=== PATIENT | female | born 1980 | race Caucasian/White ===

== ENCOUNTER 2016-06-19 09:00 | Outpatient (RCR) | payer MEDICAID ==
[~2016-06-19 09:00] MED LIST: AMOX875T2 PO; BUSP15TA47 PO; DOXE50CA PO; EFFE75CA75 PO; LAMI200T3 PO; LATU20TA PO; LATU40TA PO; LITH1TAB PO; LITH600C PO; MICOCRE TOP; OMEP10CASR PO; PREM.6256 PO; PROP10TA56 PO; SERO50TA PO; SERT-141 PO; TRAZO50TA PO; VENL75CA PO; VENL75TA2 PO; ZOLO100T PO
== END 2016-06-20 | disposition home or self-care (01) ==
LOC: M OUTALCOH 09:00
PROVIDERS: ATTEND Psychiatry & Neurology Psychiatry
DX: F12.20 Cannabis dependence, uncomplicated (principal); F17.200 Nicotine dependence, unspecified, uncomplicated

== ENCOUNTER 2016-07-17 16:00 | Outpatient (RCR) | payer MEDICAID | END 2016-07-18 | LOC: M OUTALCOH 16:00 | PROVIDERS: ATTEND Psychiatry & Neurology Psychiatry | DX: F12.20 Cannabis dependence, uncomplicated (principal); F17.200 Nicotine dependence, unspecified, uncomplicated ==

== ENCOUNTER 2016-08-17 16:00 | Outpatient (RCR) | payer MEDICAID ==
[~2016-08-17 16:00] MED LIST changes: -SERT-141 PO; +SERT50TA PO
== END 2016-08-18 ==
LOC: M OUTALCOH 16:00
PROVIDERS: ATTEND Psychiatry & Neurology Psychiatry
DX: F12.20 Cannabis dependence, uncomplicated (principal); F17.200 Nicotine dependence, unspecified, uncomplicated

== ENCOUNTER 2016-08-30 11:00 | Outpatient (RCR) | payer MEDICAID ==
[2016-09-04] MEDS ORDERED: BENT20TA PO (20:05)
== END 2016-09-17 ==
LOC: M OUTALCOH 11:00
PROVIDERS: ATTEND Psychiatry & Neurology Psychiatry
DX: F12.20 Cannabis dependence, uncomplicated (principal); F17.200 Nicotine dependence, unspecified, uncomplicated

== ENCOUNTER 2016-09-04 17:45 | Emergency (ER) | payer MEDICAID, OTHER ==
[~2016-09-04] VITALS: Ht 157.5 cm; Wt 99.8 kg
[2016-09-04] MEDS ORDERED: ONDANSETRON 4MG/2ML VIAL (J2405) IV ONE (18:00)
[2016-09-04] MEDS ORDERED: KETOROLAC 30 MG/ML VIAL (J1885) IV ONE (18:00)
[2016-09-04 18:44] LABS: BASO % 0.4 % (0.0-1.0); EOS # 0.5 K/mm3 (0.0-0.50); EOS % 4.3 % (0.0-3.0); LARGE UNSTAINED CELL # 0.2 K/mm3 (0.0-0.4); LARGE UNSTAINED CELL % 1.6 % (0.0-4.0); LYMPH # 3.5 K/mm3 (1.5-4.5); LYMPH % 27.9 % (24.0-44.0); MEAN CORPUSCULAR HEMOGLOBIN 28.5 pg (27.0-33.0); MEAN CORPUSCULAR HGB CONC 33.2 g/dl (32.0-36.5); MEAN CORPUSCULAR VOLUME 85.9 fl (80.0-96.0); MONO # 0.5 K/mm3 (0.0-0.8); MONO % 3.9 % (0.0-5.0); NEUTROPHILS # 7.3 K/mm3 (1.8-7.7); NEUTROPHILS % 61.9 % (36.0-66.0); PLATELET COUNT, AUTOMATED 314 k/mm3 (150-450); RED CELL DISTRIBUTION WIDTH 12.9 % (11.5-14.5); WHITE BLOOD COUNT 11.8 K/mm3 (4.0-10.0)
[2016-09-04 19:03] LABS: ALBUMIN/GLOBULIN RATIO 1.18 (1.00-1.93); ALKALINE PHOSPHATASE 106 U/L (45-117); ALT/SGPT 47 U/L (12-78); ANION GAP 9 MEQ/L (8-16); AST/SGOT 19 U/L (15-37); BILIRUBIN,DIRECT < 0.1 MG/DL (0.0-0.2); BILIRUBIN,TOTAL 0.2 MG/DL (0.2-1.0); BLOOD UREA NITROGEN 9 MG/DL (7-18); CALCIUM LEVEL 8.3 MG/DL (8.5-10.1); CARBON DIOXIDE LEVEL 25 MEQ/L (21-32); CHLORIDE LEVEL 108 MEQ/L (98-107); CREATININE FOR GFR 0.82 MG/DL (0.55-1.02); GLOMERULAR FILTRATION RATE > 60.0 (>60); GLUCOSE, FASTING 107 MG/DL (70-105); POTASSIUM SERUM 3.7 MEQ/L (3.5-5.1); SODIUM LEVEL 142 MEQ/L (136-145); TOTAL PROTEIN 7.4 GM/DL (6.4-8.2)
[2016-09-04] MEDS ORDERED: BENT20TA PO (20:05)
[2016-09-04 20:10] VITALS: BP 114/62
== END 2016-09-04 20:12 | disposition home or self-care (01) ==
LOC: M ED 19:02
DX: R10.84 Generalized abdominal pain (principal); J45.909 Unspecified asthma, uncomplicated; K76.0 Fatty (change of) liver, not elsewhere classified; F31.9 Bipolar disorder, unspecified; F43.10 Post-traumatic stress disorder, unspecified; F41.9 Anxiety disorder, unspecified; G89.29 Other chronic pain; F17.210 Nicotine dependence, cigarettes, uncomplicated; Z98.890 Other specified postprocedural states; Z79.899 Other long term (current) drug therapy; Z88.8 Allergy status to other drugs, medicaments and biological substances; Z88.5 Allergy status to narcotic agent
CPT/HCPCS: 80048; 80076; 81001; 83690; 85025; 96374; 96375; 99282; J1885; J2405

== ENCOUNTER 2016-09-14 10:00 | Outpatient (RCR) | payer MEDICAID ==
[~2016-09-14 10:00] MED LIST changes: +BENT20TA PO
== END 2016-09-17 ==
LOC: M OUTALCOH 10:00
PROVIDERS: ATTEND Psychiatry & Neurology Psychiatry
DX: F12.20 Cannabis dependence, uncomplicated (principal); F17.200 Nicotine dependence, unspecified, uncomplicated

== ENCOUNTER → 2016-10-03 | Outpatient (CLI) | payer OTHER ==
[2016-10-03 11:17] LABS: BASO % 0.4 % (0.0-1.0); EOS # 0.4 K/mm3 (0.0-0.50); EOS % 4.5 % (0.0-3.0); LYMPH # 2.9 K/mm3 (1.5-4.5); LYMPH % 31.1 % (24.0-44.0); MEAN CORPUSCULAR HGB CONC 33.5 g/dl (32.0-36.5); MEAN CORPUSCULAR VOLUME 86.6 fl (80.0-96.0); MONO # 0.4 K/mm3 (0.0-0.8); MONO % 4.6 % (0.0-5.0); NEUTROPHILS # 5.2 K/mm3 (1.8-7.7); NEUTROPHILS % 57.8 % (36.0-66.0); RED CELL DISTRIBUTION WIDTH 12.9 % (11.5-14.5)
[2016-10-03 12:34] LABS: ALBUMIN 3.9 GM/DL (3.2-5.2); ALKALINE PHOSPHATASE 107 U/L (45-117); ALT/SGPT 48 U/L (12-78); ANION GAP 6 MEQ/L (8-16); AST/SGOT 21 U/L (15-37); BILIRUBIN,TOTAL 0.5 MG/DL (0.2-1.0); BLOOD UREA NITROGEN 11 MG/DL (7-18); CALCIUM LEVEL 8.6 MG/DL (8.5-10.1); CARBON DIOXIDE LEVEL 28 MEQ/L (21-32); CHLORIDE LEVEL 108 MEQ/L (98-107); CREATININE FOR GFR 0.91 MG/DL (0.55-1.02); GLOMERULAR FILTRATION RATE > 60.0 (>60); GLUCOSE, FASTING 124 MG/DL (70-105); POTASSIUM SERUM 4.1 MEQ/L (3.5-5.1); SODIUM LEVEL 142 MEQ/L (136-145); TOTAL PROTEIN 6.9 GM/DL (6.4-8.2)
[2016-10-03 12:38] LABS: LITHIUM LEVEL 0.48 MEQ/L (0.60-1.20)
== END ==
LOC: M LAB 10:40
PROVIDERS: ATTEND Physician Assistant
DX: F31.9 Bipolar disorder, unspecified (principal)

== ENCOUNTER → 2016-10-18 | Outpatient (RCR) | payer MEDICAID | LOC: M OUTALCOH 10-06 15:21 | PROVIDERS: ATTEND Psychiatry & Neurology Psychiatry | DX: F12.20 Cannabis dependence, uncomplicated (principal); F17.200 Nicotine dependence, unspecified, uncomplicated ==

== ENCOUNTER → 2017-03-13 | Outpatient (CLI) | payer OTHER ==
[~2017-03-13] MED LIST changes: +LAMI1TAB9 PO; -LAMI200T3 PO; -VENL75CA PO; +VENL75CA2 PO
[2017-03-13 15:18] LABS: ANION GAP 9 MEQ/L (8-16); BLOOD UREA NITROGEN 9 MG/DL (7-18); CALCIUM LEVEL 8.9 MG/DL (8.5-10.1); CARBON DIOXIDE LEVEL 25 MEQ/L (21-32); CHLORIDE LEVEL 108 MEQ/L (98-107); CREATININE FOR GFR 0.95 MG/DL (0.55-1.02); GLOMERULAR FILTRATION RATE > 60.0 (>60); GLUCOSE, FASTING 119 MG/DL (70-105); POTASSIUM SERUM 3.8 MEQ/L (3.5-5.1); SODIUM LEVEL 142 MEQ/L (136-145)
[2017-03-13 15:28] LABS: LITHIUM LEVEL 1.06 MEQ/L (0.60-1.20)
== END ==
LOC: M LAB 13:29
PROVIDERS: ATTEND Physician Assistant
DX: F31.9 Bipolar disorder, unspecified (principal)

== ENCOUNTER 2017-06-28 09:28 | Emergency (ER) | payer OTHER ==
[2017-06-28 13:08] LABS: CHLAMYDIA DNA AMPLIFICATION NEGATIVE (NEGATIVE); GC DNA AMPLIFICATION NEGATIVE (NEGATIVE)
== END 2017-06-28 12:17 | disposition home or self-care (01) ==
LOC: M ED 09:28
DX: A59.01 Trichomonal vulvovaginitis (principal); F43.10 Post-traumatic stress disorder, unspecified; F31.9 Bipolar disorder, unspecified; F17.210 Nicotine dependence, cigarettes, uncomplicated; Z79.899 Other long term (current) drug therapy; Z88.5 Allergy status to narcotic agent; Z88.8 Allergy status to other drugs, medicaments and biological substances; Z98.890 Other specified postprocedural states
CPT/HCPCS: 87210

== ENCOUNTER 2017-08-02 12:10 | Emergency (ER) | payer OTHER ==
[2017-08-02 14:48] LABS: CONTROL LINE UCG INT CTR LINE PRESENT; URINE PREG TEST NEGATIVE (NEGATIVE)
[2017-08-02 14:53] LABS: BASO # 0.1 10^3/uL (0.0-0.2); BASO % 0.5 % (0.0-1.0); EOS # 0.4 10^3/uL (0.0-0.50); EOS % 2.9 % (0.0-3.0); HEMATOCRIT 41.3 % (36.0-47.0); HEMOGLOBIN 13.6 g/dl (12.0-16.0); IMMATURE GRANULOCYTE % 0.4 % (0-3.0); LYMPH # 3.7 10^3/uL (1.5-4.5); LYMPH % 26.6 % (24.0-44.0); MEAN CORPUSCULAR HEMOGLOBIN 29.5 pg (27.0-33.0); MEAN CORPUSCULAR HGB CONC 32.9 g/dl (32.0-36.5); MEAN CORPUSCULAR VOLUME 89.6 fl (80.0-96.0); MONO # 0.6 10^3/uL (0.0-0.8); MONO % 4.6 % (0.0-5.0); PLATELET COUNT, AUTOMATED 281 10^3/uL (150-450); RED BLOOD COUNT 4.61 10^6/uL (4.00-5.40); RED CELL DISTRIBUTION WIDTH 13.6 % (11.5-14.5); WHITE BLOOD COUNT 13.9 10^3/uL (4.0-10.0)
[2017-08-02 14:54] LABS: KETONE, URINE AUTO RFX NEGATIVE (NEGATIVE); LEUKOCYTE ESTERASE UR AUTO RFX NEGATIVE (NEGATIVE); NITRITE, URINE AUTO RFX NEGATIVE (NEGATIVE); RBC, URINE AUTO RFX 0 /HPF (0-3); SPECIFIC GRAVITY UR AUTO RFX 1.006 (1.002-1.035); SQUAM EPITHELIAL CELL UR AURFX 3 /HPF (0-6); WBC, URINE AUTO RFX 0 /HPF (0-3)
[2017-08-02 15:26] LABS: ANION GAP 8 MEQ/L (8-16); BLOOD UREA NITROGEN 16 MG/DL (7-18); C REACTIVE PROTEIN QUANTITATIV 0.82 MG/DL (0.00-0.30); CALCIUM LEVEL 9.3 MG/DL (8.5-10.1); CARBON DIOXIDE LEVEL 23 MEQ/L (21-32); CHLORIDE LEVEL 110 MEQ/L (98-107); CREATININE FOR GFR 0.83 MG/DL (0.55-1.30); GLOMERULAR FILTRATION RATE > 60.0 (>60); GLUCOSE, FASTING 106 MG/DL (70-100); POTASSIUM SERUM 4.2 MEQ/L (3.5-5.1); SODIUM LEVEL 141 MEQ/L (136-145)
[2017-08-02 15:32] LABS: LITHIUM LEVEL 0.92 MEQ/L (0.60-1.20)
[2017-08-02] MEDS: diphenhydrAMINE INJ 50MG/ML VIAL (J1200) IV (15:36)
[2017-08-02] MEDS: METOCLOPRAMIDE INJ 10MG/2ML VIAL (J2765) IV (15:36)
[2017-08-02] MEDS: KETOROLAC 30 MG/ML VIAL (J1885) IV (15:36)
[2017-08-02 16:13] LABS: ERYTHROCYTE SEDIMENTATION RATE 9 mm/hr (0-20)
== END 2017-08-02 16:43 | disposition home or self-care (01) ==
LOC: M ED 12:10
DX: R51 Headache (principal); R11.0 Nausea; H53.9 Unspecified visual disturbance; K59.00 Constipation, unspecified; F31.9 Bipolar disorder, unspecified; F43.10 Post-traumatic stress disorder, unspecified; F17.200 Nicotine dependence, unspecified, uncomplicated; Z88.6 Allergy status to analgesic agent; Z88.5 Allergy status to narcotic agent; Z79.899 Other long term (current) drug therapy
CPT/HCPCS: J1200

== ENCOUNTER → 2017-08-17 | Outpatient (REF) | payer OTHER ==
[2017-08-17 20:37] LABS: CHLAMYDIA DNA AMPLIFICATION NEGATIVE (NEGATIVE); GC DNA AMPLIFICATION NEGATIVE (NEGATIVE)
== END ==
LOC: M SFHCPLAZ 16:54
DX: N76.0 Acute vaginitis (principal)

== ENCOUNTER 2018-03-05 20:10 | Emergency (ER) | payer OTHER ==
[2018-03-05] MEDS: ACETAMINOPHEN 325 MG TAB PO (21:26)
[2018-03-05] MEDS: LIDOCAINE VISCOUS 2% SOLN 15ML UDC MT (21:26)
[2018-03-05] MEDS: CLINDAMYCIN 150 MG CAP PO (21:26)
== END 2018-03-05 21:40 | disposition home or self-care (01) ==
LOC: M ED 20:10
DX: K04.7 Periapical abscess without sinus (principal); J45.909 Unspecified asthma, uncomplicated; N80.9 Endometriosis, unspecified; F43.10 Post-traumatic stress disorder, unspecified; F31.9 Bipolar disorder, unspecified; F41.9 Anxiety disorder, unspecified; F17.200 Nicotine dependence, unspecified, uncomplicated; Z88.6 Allergy status to analgesic agent; Z88.5 Allergy status to narcotic agent
CPT/HCPCS: 99282

== ENCOUNTER → 2018-03-19 | Outpatient (CLI) | payer OTHER | LOC: M RAD 10:36 | DX: N64.4 Mastodynia (principal); K12.0 Recurrent oral aphthae | CPT/HCPCS: 77066 ==

== ENCOUNTER → 2018-03-19 | Outpatient (CLI) | payer OTHER ==
[2018-03-19 11:16] LABS: BASO # 0.1 10^3/uL (0.0-0.2); BASO % 0.5 % (0.0-1.0); EOS # 0.2 10^3/uL (0.0-0.50); EOS % 2.6 % (0.0-3.0); HEMATOCRIT 43.2 % (36.0-47.0); HEMOGLOBIN 14.3 g/dl (12.0-15.5); IMMATURE GRANULOCYTE % 0.2 % (0-3.0); LYMPH # 3.9 10^3/uL (1.5-4.5); LYMPH % 42.7 % (24.0-44.0); MEAN CORPUSCULAR HEMOGLOBIN 28.5 pg (27.0-33.0); MEAN CORPUSCULAR HGB CONC 33.1 g/dl (32.0-36.5); MEAN CORPUSCULAR VOLUME 86.2 fl (80.0-96.0); MONO # 0.6 10^3/uL (0.0-0.8); MONO % 6.4 % (0.0-5.0); NEUTROPHILS # 4.4 10^3/uL (1.8-7.7); NEUTROPHILS % 47.6 % (36.0-66.0); PLATELET COUNT, AUTOMATED 281 10^3/uL (150-450); RED BLOOD COUNT 5.01 10^6/uL (4.00-5.40); RED CELL DISTRIBUTION WIDTH 12.7 % (11.5-14.5); WHITE BLOOD COUNT 9.2 10^3/uL (4.0-10.0)
[2018-03-19 12:43] LABS: FERRITIN 27 NG/ML (8-252); IRON (FE) 83 UG/DL (50-170); PERCENT SATURATION 24.4 % (13.2-45.0); TOTAL IRON BINDING CAPACITY 340 UG/DL (250-450)
[2018-03-20 08:07] LABS: TRANSFERRIN 266 mg/dL (200-370)
[2018-03-20 11:21] LABS: HIV 1&2 SCREEN CENTAUR NEGATIVE (NEGATIVE)
== END ==
LOC: M LAB 10:41
DX: K12.0 Recurrent oral aphthae (principal)
CPT/HCPCS: 82728

== ENCOUNTER 2018-05-18 22:50 | Emergency (ER) | payer OTHER ==
[~2018-05-18] VITALS: Ht 157.5 cm; Wt 100.0 kg
[2018-05-18 22:50] VITALS: BP 148/73
[~2018-05-18 22:50] MED LIST changes: +ALEV220C2 PO; +AMOX875T PO; +CLEO300C2 PO; +EFFE75CA2 PO; -EFFE75CA75 PO; +FLAG500T PO; +KETO10TAB PO; +REGL10TA6 PO
[2018-05-18] MEDS ORDERED: NEUR100C PO ×2 (23:15→23:37)
[2018-05-18] MEDS ORDERED: GABAPENTIN 100 MG CAP PO ONE (23:15)
[2018-05-18] MEDS ORDERED: PRED20TA PO ×2 (23:15→23:37)
[2018-05-18] MEDS ORDERED: predniSONE 20 MG TAB PO ONE (23:15)
== END 2018-05-18 23:44 | disposition home or self-care (01) ==
LOC: M ED 22:50
DX: M54.12 Radiculopathy, cervical region (principal); N80.9 Endometriosis, unspecified; F43.10 Post-traumatic stress disorder, unspecified; Z72.0 Tobacco use; Z88.6 Allergy status to analgesic agent; Z88.5 Allergy status to narcotic agent

== ENCOUNTER → 2018-10-18 | Outpatient (REF) | payer OTHER ==
[~2018-10-18] MED LIST changes: +NEUR100C PO; +PRED20TA PO; +SERT-141 PO; -SERT50TA PO; +TRAZ1TAB10 PO; -TRAZO50TA PO
[2018-10-18 17:30] LABS: FREE T4 0.91 NG/DL (0.76-1.46); THYROID STIMULATING HORMONE 0.962 uIU/ML (0.358-3.740)
== END ==
LOC: M SFHCPLAZ 14:20
DX: R63.5 Abnormal weight gain (principal); K12.0 Recurrent oral aphthae

== ENCOUNTER → 2018-12-02 | Outpatient (REF) | payer OTHER ==
[~2018-12-02] MED LIST changes: +DULO1CAP6; +MECL-86 PO
== END ==
LOC: M SFHCPLAZ 18:39
PROVIDERS: ATTEND Obstetrics & Gynecology
DX: R10.9 Unspecified abdominal pain (principal)

== ENCOUNTER → 2019-01-31 | Outpatient (REF) | payer OTHER ==
[2019-01-31 18:04] LABS: HEMOGLOBIN 13.8 g/dl (12.0-15.5); MEAN CORPUSCULAR HEMOGLOBIN 28.2 pg (27.0-33.0); MEAN CORPUSCULAR HGB CONC 32.9 g/dl (32.0-36.5); MEAN CORPUSCULAR VOLUME 85.9 fl (80.0-96.0); PLATELET COUNT, AUTOMATED 296 10^3/uL (150-450); RED BLOOD COUNT 4.89 10^6/uL (4.00-5.40); WHITE BLOOD COUNT 11.4 10^3/uL (4.0-10.0)
[2019-01-31 18:17] LABS: CHOLESTEROL LEVEL 189 MG/DL (<200); CHOLESTEROL RISK RATIO 4.725 (<5); HDL CHOLESTEROL 40 MG/DL (>40); LDL CHOLESTEROL 78 MG/DL (<100); NON-HDL-C 149 MG/DL; TRIGLYCERIDES LEVEL 354 MG/DL (<150)
[2019-01-31 18:50] LABS: HIV 1&2 SCREEN CENTAUR NEGATIVE (NEGATIVE)
[2019-01-31 19:22] LABS: HEMOGLOBIN A1c 5.3 %
[2019-01-31 21:20] LABS: CHLAMYDIA DNA AMPLIFICATION NEGATIVE (NEGATIVE); GC DNA AMPLIFICATION NEGATIVE (NEGATIVE)
== END ==
LOC: M SFHCPLAZ 15:17
DX: R10.31 Right lower quadrant pain (principal); Z68.41 Body mass index [BMI] 40.0-44.9, adult

== ENCOUNTER 2019-02-05 18:25 | Emergency (ER) | payer OTHER ==
[~2019-02-05] VITALS: Ht 157.5 cm; Wt 93.2 kg
[~2019-02-05 18:25] MED LIST changes: -DULO1CAP6; -MECL-86 PO
[2019-02-05] MEDS ORDERED: DULO1CAP6 (18:31)
[2019-02-05] MEDS ORDERED: PROMETHAZINE INJ 25 MG/ML VIAL (J2550) IV ONE (19:00)
[2019-02-05] MEDS ORDERED: NS 1,000 ML IV ONE (19:00)
[2019-02-05 19:07] LABS: BASO % 0.3 % (0.0-1.0); EOS # 0.4 10^3/uL (0.0-0.5); EOS % 3.1 % (0.0-3.0); HEMATOCRIT 42.5 % (36.0-47.0); HEMOGLOBIN 14.6 g/dl (12.0-15.5); LYMPH # 4.3 10^3/uL (1.5-5.0); LYMPH % 37.4 % (24.0-44.0); MEAN CORPUSCULAR HEMOGLOBIN 28.8 pg (27.0-33.0); MEAN CORPUSCULAR HGB CONC 34.4 g/dl (32.0-36.5); MEAN CORPUSCULAR VOLUME 83.8 fl (80.0-96.0); MONO # 0.6 10^3/uL (0.0-0.8); MONO % 5.2 % (0.0-5.0); NEUTROPHILS # 6.1 10^3/uL (1.5-8.5); NEUTROPHILS % 53.7 % (36.0-66.0); PLATELET COUNT, AUTOMATED 300 10^3/uL (150-450); RED BLOOD COUNT 5.07 10^6/uL (4.00-5.40); WHITE BLOOD COUNT 11.4 10^3/uL (4.0-10.0)
[2019-02-05 19:18] LABS: INR 0.98; PROTHROMBIN TIME 12.7 SECONDS (11.8-14.0)
[2019-02-05 19:25] LABS: ALBUMIN 3.7 GM/DL (3.2-5.2); ALT/SGPT 35 U/L (12-78); AMYLASE 37 U/L (25-115); BILIRUBIN,DIRECT < 0.1 MG/DL (0.0-0.2); BILIRUBIN,TOTAL 0.2 MG/DL (0.2-1.0); BLOOD UREA NITROGEN 8 MG/DL (7-18); CALCIUM LEVEL 9.2 MG/DL (8.5-10.1); CARBON DIOXIDE LEVEL 23 MEQ/L (21-32); CHLORIDE LEVEL 110 MEQ/L (98-107); CK-MB VALUE MASS < 1.0 NG/ML (<3.6); CPK CREATINE PHOSPHOKINASE 157 U/L (26-192); CREATININE FOR GFR 0.91 MG/DL (0.55-1.30); GLOMERULAR FILTRATION RATE > 60.0 (>60); GLUCOSE, FASTING 139 MG/DL (70-100); LIPASE 145 U/L (73-393); MB/CK RELATIVE INDEX 0.64 (< OR =4); POTASSIUM SERUM 3.8 MEQ/L (3.5-5.1); SODIUM LEVEL 142 MEQ/L (136-145); TOTAL PROTEIN 6.7 GM/DL (6.4-8.2); TROPONIN I < 0.02 NG/ML (< 0.10)
[2019-02-05] MEDS ORDERED: ISOVUE-370 76% 100ML VIAL (Q9967) As Ordered ONE (19:34)
--- NOTE | 2019-02-05 19:56 | REP ---
REASON: Chest pain. COMPARISON: 11/23/2009. There is mild cardiomegaly accentuated by technique. The lung stringer are clear. The pleural angles are sharp. The osseous structures are unchanged. There is a round metallic radiodensity in the left lower lung field unchanged from the prior exam consistent with a foreign body. IMPRESSION:Mild cardiomegaly. No acute cardiopulmonary disease. Electronically Signed by Moises Li DO 02/06/2019 11:05 A
--- NOTE | 2019-02-05 20:36 | REPVR ---
PROCEDURE INFORMATION: Exam: CT Abdomen and Pelvis With Contrast Exam date and time: 02/05/2019 7:41 PM Clinical history: 38 years old, female; Abdominal pain; Localized; Left upper quadrant (luq); Additional info: Pain- luq TECHNIQUE: Imaging protocol: Computed tomography of the abdomen and pelvis with intravenous contrast. Radiation optimization: All CT scans at this facility use at least one of these dose optimization techniques: automated exposure control; mA and/or kV adjustment per patient size (includes targeted exams where dose is matched to clinical indication); or iterative reconstruction. Contrast material: ISOVUE 370; Contrast volume: 100 ml; Contrast route: IV; COMPARISON: CT ABD PELVIS WITH CONTRAST 08/20/2013 6:53 PM FINDINGS: Liver: There is a diffuse decrease in hepatic parenchymal density, consistent with fatty infiltration. Gallbladder and bile ducts: The gallbladder is incompletely distended. This is most likely related to incomplete fasting. Clinical correlation to exclude gallbladder pathology suggested. Pancreas: Normal. No ductal dilation. Spleen: Normal. No splenomegaly. Adrenals: Normal. No mass. Kidneys and ureters: Normal. No hydronephrosis. Stomach and bowel: There is modest increased feces throughout the colon consistent with constipation. Appendix: No evidence of appendicitis. Intraperitoneal space: Unremarkable. No free air. No significant fluid collection. Vasculature: Unremarkable. No abdominal aortic aneurysm. Lymph nodes: Unremarkable. No enlarged lymph nodes. Bladder: Unremarkable as visualized. Reproductive: There has been a hysterectomy. Bones/joints: Unremarkable. No acute fracture. Soft tissues: Small right inguinal hernia. IMPRESSION: 1. There is a diffuse decrease in hepatic parenchymal density, consistent with fatty infiltration. 2. The gallbladder is incompletely distended. This is most likely related to incomplete fasting. Clinical correlation to exclude gallbladder pathology suggested. 3. There has been a hysterectomy. 4. There is modest increased feces throughout the colon consistent with constipation. Electronically signed by: Adrian Ignacio On 02/05/2019 20:36:27 PM
[2019-02-05 21:31] VITALS: BP 142/82
[2019-02-05] MEDS ORDERED: MECL-86 PO (21:42)
--- NOTE | 2019-02-06 21:32 | ECGEPIP ---
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
== END 2019-02-05 21:58 | disposition home or self-care (01) ==
LOC: M ED 18:25
DX: R42 Dizziness and giddiness (principal); K59.00 Constipation, unspecified; F31.9 Bipolar disorder, unspecified; K58.1 Irritable bowel syndrome with constipation; Z88.5 Allergy status to narcotic agent; Z88.6 Allergy status to analgesic agent; F17.200 Nicotine dependence, unspecified, uncomplicated
CPT/HCPCS: 36415; 71045; 74177; 80048; 80076; 82150; 82550; 82553; 83605; 83690; 85025; 85610; 85730; 93005; 93041; 96361; 96374; 99285; Q9967

== ENCOUNTER → 2019-02-19 | Outpatient (CLI) | payer OTHER ==
[~2019-02-19] MED LIST changes: +DULO1CAP6; +MECL-86 PO
--- NOTE | 2019-02-19 18:01 | REP ---
Pelvic ultrasound: The patient complains of right lower quadrant pain. The patient has a complete hysterectomy with years surgical removal, 2010, ovary surgically removed and 2011. Additionally, the patient had an endometrioma removed and 2013. Transabdominal imaging is performed. The bladder is adequately distended. There is no identifiable uterus. There are no identifiable right or left ovaries. There are no dominant masses or cysts. There is no free fluid. When imaging over the right lower quadrant the appendix cannot be identified. There is no focal fluid collection. Impression: Essentially negative pelvic ultrasound in patient with a hysterectomy. No new dominant masses or cysts are identified. There is no free fluid. The appendix could not be identified. Electronically Signed by Jadiel Mack MD 02/19/2019 05:53 P
== END ==
LOC: M RAD 16:55
PROVIDERS: ATTEND Internal Medicine
DX: R10.31 Right lower quadrant pain (principal)

== ENCOUNTER → 2019-05-08 | Outpatient (CLI) | payer OTHER ==
--- NOTE | 2019-05-08 19:09 | REPPI ---
Two-view abdomen: 05/08/2019. Indication: Abdominal pain. Inguinal hernia. Comparison: 02/05/2019. Findings: Moderate fecal material is noted within the colon particularly within the hepatic flexure. There is no evidence of bowel obstruction. No acute osseous injuries are detected. There is no organomegaly. No free intraperitoneal air is detected. Impression: Constipation? No evidence of bowel obstruction. Electronically Signed by Rene Barrera DO 05/08/2019 05:04 P
== END ==
LOC: M PLAIMG 15:31
PROVIDERS: ATTEND Internal Medicine
DX: K59.00 Constipation, unspecified (principal); R10.31 Right lower quadrant pain

== ENCOUNTER → 2019-05-08 | Outpatient (REF) | payer OTHER ==
[2019-05-08 18:35] LABS: CHLAMYDIA DNA AMPLIFICATION NEGATIVE (NEGATIVE); GC DNA AMPLIFICATION NEGATIVE (NEGATIVE)
[2019-05-09 12:18] LABS: HEPATITIS B SURFACE ANTIBODY NEGATIVE (POSITIVE); HEPATITIS B SURFACE ANTIGEN NEGATIVE (NEGATIVE); HIV 1&2 SCREEN CENTAUR NEGATIVE (NEGATIVE)
== END ==
LOC: M SFHCPLAZ 15:09
DX: Z11.3 Encounter for screening for infections with a predominantly sexual mode of transmission (principal)

== ENCOUNTER → 2020-03-05 | Outpatient (REF) | payer OTHER ==
[2020-03-05 17:47] LABS: HEMOGLOBIN A1c 5.2 %
[2020-03-05 17:53] LABS: ALBUMIN 4.1 GM/DL (3.2-5.2); ALT/SGPT 50 U/L (12-78); BILIRUBIN,TOTAL 0.4 MG/DL (0.2-1.0); BLOOD UREA NITROGEN 13 MG/DL (7-18); CALCIUM LEVEL 9.1 MG/DL (8.5-10.1); CARBON DIOXIDE LEVEL 32 MEQ/L (21-32); CHLORIDE LEVEL 107 MEQ/L (98-107); CHOLESTEROL LEVEL 210 MG/DL (<200); CREATININE FOR GFR 0.92 MG/DL (0.55-1.30); GLOMERULAR FILTRATION RATE > 60.0 (>60); GLUCOSE, FASTING 107 MG/DL (70-100); HDL CHOLESTEROL 42 MG/DL (>40); LDL CHOLESTEROL 105 MG/DL (<100); NON-HDL-C 168 MG/DL; POTASSIUM SERUM 4.2 MEQ/L (3.5-5.1); SODIUM LEVEL 144 MEQ/L (136-145); TOTAL PROTEIN 7.5 GM/DL (6.4-8.2); TRIGLYCERIDES LEVEL 313 MG/DL (<150)
== END ==
LOC: M SFHCPLAZ 14:11
DX: E66.9 Obesity, unspecified (principal); F17.200 Nicotine dependence, unspecified, uncomplicated; Z00.00 Encounter for general adult medical examination without abnormal findings

== ENCOUNTER → 2020-06-06 | Outpatient (CLI) | payer OTHER ==
[~2020-06-06] MED LIST changes: +PHEN37.52; +VITMTA PO
== END ==
LOC: M LABSMTC 09:56
PROVIDERS: ATTEND Anesthesiology
DX: Z01.812 Encounter for preprocedural laboratory examination (principal); Z20.822 Contact with and (suspected) exposure to COVID-19

== ENCOUNTER 2020-06-11 06:17 | Day surgery (SDC) | payer OTHER ==
[~2020-06-11] VITALS: Ht 157.5 cm; Wt 93.4 kg
[~2020-06-11 06:17] MED LIST changes: +CelecoXIB (CeleBREX) 100 MG CAP PO ONE; +LR 1,000 ML IV ONE
--- OUTSIDE RECORDS SUMMARY | 2020-06-11 06:23 | CCD ---
Author Author [facility] Organization [facility] Address Unknown Phone Unavailable Care Team Providers Care Telesales Manager Name Role Phone Lakeshia Kemp Unavailable PROBLEMS Type Condition ICD9-CM Code RNV66-WS Code Onset Dates Condition S tatus SNOMED Code Notes Problem Smoking F17.200 Active 733221815 Problem Obesity, unspecified E66.9 Active 931712738 Problem Carpal tunnel syndrome on left G56.02 Active 2 61446265514975 Problem Borderline personality disorder F60.3 Active 55776370 Problem Bipolar affective disorder, remission status unspecified F31.9 Active 61433796 Problem BMI 37.0-37.9, adult Z68.37 Active 408659522 ALLERGIES Allergen (clinical drug ingredient) Drug/Non Drug Allergy do cumented on EMR Reaction Allergy Type Onset Date Status codeine Codeine Sulfate(NDC Code:[address]-33) itchy, h ot upset,dizzy Drug Allergy Active Codeine Phosphate(NDC Code:[address]-08) Nausea/Vomiting Drug Allergy Active aspirin Aspirin(NDC Code:[address]-77) headache Drug Allergy Active ENCOUNTERS from 1982 to 2020-05-11 Encounter Location Date Provider Diagnosis [facility] Resident [address] [place] [address] Apr, Lakeshia Kemp IMMUNIZATIONS Vaccine Route Administration Date Status Meningococcal 0.5mL (Menveo Groups A,C,Y & W-135) IM Intramuscul ar Jun 13, 2019 Administered Pneumococcal Adult 0.5mL (Pneumovax 23) IM Intramuscular Jan Administered Influenza (6mo & up) Fluzone IM Intramuscular Mar 14, 2018 Ad ministered SOCIAL HISTORY Tobacco Use: Social History Observation Description Date Details (start date - stop date) Current Smoker Sex Assigned At : Social History Observation Description Sex Assigned At Unknown Education: Question Answer Notes Level of Education: Finished High School Audit Question Answer Notes Total Score: 0 Interpretation: Alcohol Education Language: Question Answer Notes Languages spoken: Bermudian Yazidi: Question Answer Notes Yazidi 08 Rastafarian Sexual Hx: Question Answer Notes Had sex in the last 12 months (vaginal, oral, or anal)? Yes Have you ever had an STD? Yes with Men only Use protection? No Other? Yes Drug and Alcohol Question Answer Notes Total Score: 0 Interpretation: No problems reported Alcohol Screening: Question Answer Notes Did you have a drink containing alcohol in the past year? No Points 0 Interpretation Negative Tobacco Use: Question Answer Notes Are you a: current smoker Smoking Cessation Information Given 05/08/2019 Patient counseled on the dangers of tobacco use and urged to quit: 05/08/2019 How many cigarettes a day do you smoke? 5 or less smokes cigars Are you interested in quitting? Ready to quit Counseled the patient on tobacco use, cessation provided REASON FOR REFERRAL No Information VITAL SIGNS No information MEDICATIONS Medication SIG (Take, Route, Frequency, Duration) Notes Start Da te End Date Status Meloxicam 15 MG 1 tablet Orally Once a day for 7 day(s) Feb, Active Phentermine HCl 15 MG 1 capsule Orally Once a day for 30 days Feb, Active Qsymia 3.75-23 MG 1 capsule daily for 2 weeks then two capsules daily Orally Once a day for 30 days Feb, Active Phentermine HCl 37.5 MG 1 tablet Orally Once a day for 30 days Feb, Active PROCEDURES No Information RESULTS No Results REASON FOR VISIT URGENT Medication Refill Request MEDICAL (GENERAL) HISTORY Type Description Date Medical History Bipolar Disorder with Depression/Anxiety /Borderline/PTSD Medical History Anemia and Endometriosis (s/p EUSEBIA with B LO 2011) Medical History Obesity Medical History Fibrocystic Dreast Disease BL Medical History Carpal Tunnel (left) Surgical History hysterectomy Surgical History laparoscopy-2000/2005/2006 Surgical History c section-2001 Surgical History laparoscopy Surgical History C section Surgical History hysterectomy 2010 Surgical History oophorectomy-2011 Surgical History oophrectomy 2012 Hospitalization History hysterectomy 2011 Goals Section No Information Health Concerns No Information MEDICAL EQUIPMENT No Information MENTAL STATUS No Information FUNCTIONAL STATUS No Information ASSESSMENTS No Information PLAN OF TREATMENT Medication Medication Name Sig Start Date Stop Date Meloxicam 15 MG 1 tablet Orally Once a day for 7 day(s) Feb, Qsymia 3.75-23 MG 1 capsule daily for 2 weeks then two capsules daily Orally Once a day for 30 days Feb, Phentermine HCl 37.5 MG 1 tablet Orally Once a day for 30 days 2 1 Feb, 2020 Phentermine HCl 15 MG 1 capsule Orally Once a day for 30 days Feb, Next Appt Details Provider Name:Faheem Koenig, 2 021-01-07 03:30:00 PM, [address] [facility], [place], [address], Insurance Providers Payer Name Payer Address Payer Phone Insured Name Patient Relati onship to Insured Coverage Start Date Coverage End Date [facility] [employer] [address] [facility] [id number] DAI MCKEON self
--- OUTSIDE RECORDS SUMMARY | 2020-06-11 06:24 | CCD | Continuity of Care Document ---
Author Author YAMILEX ADKINS, Jordyn Ramos Organization Unknown Address [address] [place] [id number] Phone [phone] Care Team Providers Care Cardiopulmonary Technologist Chief Name Role Phone Lakeshia KempM [phone] Problems Active Problems Provider Date Bilateral chronic serous otitis Patrick Deleon M.D. Onset: 08/15/2017 Social History Type Date Description Comments Sex Unknown ETOH Use Denies alcohol use Tobacco Use Start: 05/21/10 1/2 PPD Recreational Drug Use Denies Drug Use Allergies, Adverse Reactions, Alerts Active Allergies Reaction Severity Comments Date Aspirin 06/09/2016 Codeine 06/09/2016 Medications Active Medications SIG Qnty Indications Ordering Provide r Date Phentermine HCL 37.5mg Tablets Take One Tablet By Mouth Every Day Maximum Daily Dose 1 Capsule Unknown Immunizations Description No Information Available Vital Signs Date Vital Result Comment 04/06/2020 9:54am BP Systolic 133 mmHg BP Diastolic 81 mmHg Heart Rate 85 /min Height 62 inches 5'2" Weight 212.12 lb BMI (Body Mass Index) 38.8 kg/m2 [place] Body Weight 110 lb Weight 96.220 kg 08/15/2017 10:22am Height 62 inches 5'2" Weight 210.00 lb BMI (Body Mass Index) 38.4 kg/m2 [place] Body Weight 110 lb Weight 95.256 kg Results Description No Information Available Procedures Description No Information Available Medical Devices Description No Information Available Encounters Description No Information Available Assessments Description No Information Available Plan of Treatment 08/15/2017 - Slade Piña MD* J34.2 Deviated nasal septum* New Xrays:* CT Maxillofacial W/O Contrast 36201, Scheduled: 08/21/17 * H92.01 Otalgia, right ear * H69.93 Unspecified Eustachian tube disorder, bilateral* Recommendations:* audiolgoy ordered * HOLD Mmri Hold Billing Functional Status Description No Information Available Mental Status Description No Information Available Referrals Refer to Reason for Referral Status Appt Date Shane Tapia MD PAINFUL LIPOMA, LFT ARM Scheduled 1 06/06/[address] [place], [place] [id number] [phone]
--- OUTSIDE RECORDS SUMMARY | 2020-06-11 06:24 | CCD ---
Author Author [facility] Organization [facility] Address Unknown Phone Unavailable Care Team Providers Care Drill Operator Pneumatic Name Role Phone Haley Giraldo MHC Unavailable Unavailable Haley Giraldo MHC Unavailable Unavailable CHO, J SALLY PA Unavailable Unavailable CHO, J SALLY PA Unavailable Unavailable CHO, J SALLY PA Unavailable Unavailable CHO, J SALLY PA Unavailable Unavailable CHO, J SALLY PA Unavailable Unavailable CHO, J SALLY PA Unavailable Unavailable CHO, J SALLY PA Unavailable Unavailable CHO, J SALLY PA Unavailable Unavailable CHO, J SALLY PA Unavailable Unavailable CHO, J SALLY PA Unavailable Unavailable CHO, J SALLY PA Unavailable Unavailable CHO, J SALLY PA Unavailable Unavailable CHO, J SALLY PA Unavailable Unavailable CHO, J SALLY PA Unavailable Unavailable CHO, J SALLY PA Unavailable Unavailable CHO, J SALLY PA Unavailable Unavailable CHO, J SALLY PA Unavailable Unavailable CHO, J SALLY PA Unavailable Unavailable CHO, J SALLY PA Unavailable Unavailable CHO, J SALLY PA Unavailable Unavailable CHO, J SALLY PA Unavailable Unavailable CHO, J SALLY PA Unavailable Unavailable CHO, J SALLY PA Unavailable Unavailable CHO, J SALLY PA Unavailable Unavailable CHO, J SALLY PA Unavailable Unavailable CHO, J SALLY PA Unavailable Unavailable CHO, J SALLY PA Unavailable Unavailable SONALI, KMIMIE PA Unavailable Unavailable SONALI, KIMMIE PA Unavailable Unavailable SONALI, KIMMIE PA Unavailable Unavailable SONALI, KIMMIE PA Unavailable Unavailable SONALI, KIMMIE PA Unavailable Unavailable SONALI, KIMMIE PA Unavailable Unavailable SONALI, KIMMIE PA Unavailable Unavailable SONALI, KIMMIE PA Unavailable Unavailable SONALI, KIMMIE PA Unavailable Unavailable SONALI, KIMMIE PA Unavailable Unavailable SONALI, KIMMIE PA Unavailable Unavailable SONALI, KIMMIE PA Unavailable Unavailable SONALI, KIMMIE PA Unavailable Unavailable SONALI, KIMMIE PA Unavailable Unavailable SONALI, KIMMIE PA Unavailable Unavailable SONALI, KIMMIE PA Unavailable Unavailable SONALI, IKMMIE PA Unavailable Unavailable SONALI, KIMMIE PA Unavailable Unavailable SONALI, KIMMIE PA Unavailable Unavailable SONALI, KIMMIE PA Unavailable Unavailable SONALI, KIMMIE PA Unavailable Unavailable SONALI, KIMMIE PA Unavailable Unavailable SONALI, KIMMIE PA Unavailable Unavailable SONALI, KIMMIE PA Unavailable Unavailable SONALI, KIMMIE PA Unavailable Unavailable SONALI, KIMMIE PA Unavailable Unavailable SONALI, KIMMIE PA Unavailable Unavailable SONALI, KIMMIE PA Unavailable Unavailable SONALI, KIMMIE PA Unavailable Unavailable SONALI, KIMMIE PA Unavailable Unavailable SONALI, KIMMIE PA Unavailable Unavailable SONALI, KIMMIE PA Unavailable Unavailable SONALI, KIMMIE PA Unavailable Unavailable SONALI, KIMMIE PA Unavailable Unavailable SONALI, KIMMIE PA Unavailable Unavailable SONALI, KIMMIE PA Unavailable Unavailable SONALI, KIMMIE PA Unavailable Unavailable SONALI, KIMMIE PA Unavailable Unavailable Dille, E Felicia DDS Unavailable Unavailable Dille, E Felicia DDS Unavailable Unavailable Dille, E Felicia DDS Unavailable Unavailable Dilbradley, E Felicia DDS Unavailable Unavailable Desmond Zafar MD Unavailable Unavailable Desmond Zafar MD Unavailable Unavailable Desmond Zafar MD Unavailable Unavailable Desmond Zafar MD Unavailable Unavailable Desmond Zafar MD Unavailable Unavailable Desmond Zafar MD Unavailable Unavailable Desmond Zafar MD Unavailable Unavailable Desmond Zafar MD Unavailable Unavailable Desmond Zafar MD Unavailable Unavailable Desmond Zafar MD Unavailable Unavailable Desmond Zafar MD Unavailable Unavailable Desmond Zafar MD Unavailable Unavailable Desmond Zafar MD Unavailable Unavailable Desmond Zafar MD Unavailable Unavailable Desmond Zafar MD Unavailable Unavailable Desmond Zafar MD Unavailable Unavailable Desmond Zafar MD Unavailable Unavailable Desmond Zafar MD Unavailable Unavailable Desmond Zafar MD Unavailable Unavailable Desmond Zafar MD Unavailable Unavailable Desmond Zafar MD Unavailable Unavailable Desmond Zafar MD Unavailable Unavailable Desmond Zafar MD Unavailable Unavailable Desmond Zafar MD Unavailable Unavailable Desmond Zafar MD Unavailable Unavailable Desmond Zafar MD Unavailable Unavailable Desmond Zafar MD Unavailable Unavailable Desmond Zafar MD Unavailable Unavailable Desmond Zafar MD Unavailable Unavailable Desmond Zafar MD Unavailable Unavailable Desmond Zafar MD Unavailable Unavailable Desmond Zafar MD Unavailable Unavailable Desmond Zafar MD Unavailable Unavailable Desmond Zafar MD Unavailable Unavailable Desmond Zafar MD Unavailable Unavailable Desmond Zafar MD Unavailable Unavailable Desmond Zafar MD Unavailable Unavailable Desmond Zafar MD Unavailable Unavailable Desmond Zafar MD Unavailable Unavailable Desmond Zafar MD Unavailable Unavailable Desmond Zafar MD Unavailable Unavailable Zafar, Desmond White MD Unavailable Unavailable Zafar, Desmond White MD Unavailable Unavailable Zafar, Desmond White MD Unavailable Unavailable Zafar, D Christopher MD Unavailable Unavailable Zafar, D Christopher MD Unavailable Unavailable Zafar, D Christopher MD Unavailable Unavailable Zafar, D Christopher MD Unavailable Unavailable Zafar, Desmond White MD Unavailable Unavailable Zafar, Desmond White MD Unavailable Unavailable Zaafr, Desmond White MD Unavailable Unavailable Zafar, Desmond White MD Unavailable Unavailable Zafar, Desmond White MD Unavailable Unavailable Zafar, Desmond White MD Unavailable Unavailable Zafar, Desmond White MD Unavailable Unavailable Zafar, Desmond White MD Unavailable Unavailable Zafar, Desmond White MD Unavailable Unavailable Zafar, Desmond White MD Unavailable Unavailable Zafar, Desmond White MD Unavailable Unavailable Zafar, Desmond White MD Unavailable Unavailable Zafar, Desmond White MD Unavailable Unavailable Zafar, Desmond White MD Unavailable Unavailable Zafar, Desmond White MD Unavailable Unavailable Zafar, D Christopher MD Unavailable Unavailable Zafar, D Christopher MD Unavailable Unavailable Zafar, D Christopher MD Unavailable Unavailable Zafar, Desmond White MD Unavailable Unavailable Zafar, Desmond White MD Unavailable Unavailable Zafar, Desmond White MD Unavailable Unavailable Zafar, Desmond White MD Unavailable Unavailable Zafar, Desmond White MD Unavailable Unavailable Zafar, Desmond White MD Unavailable Unavailable Zafar, Desmond White MD Unavailable Unavailable Zafar, Desmond White MD Unavailable Unavailable Zafar, Dsemond White MD Unavailable Unavailable Zafar, Desmond White MD Unavailable Unavailable Zafar, Desmond White MD Unavailable Unavailable Zafar, Desmond White MD Unavailable Unavailable Zafar, Desmond White MD Unavailable Unavailable Zafar, Desmond White MD Unavailable Unavailable Zafar, Desmond White MD Unavailable Unavailable Zafar, D Christopher MD Unavailable Unavailable Zafar, Desmond White MD Unavailable Unavailable Zafar, Desmond White MD Unavailable Unavailable Zafar, Desmond White MD Unavailable Unavailable Zafar, Desmond White MD Unavailable Unavailable Zafar, Desmond White MD Unavailable Unavailable Zafar, Desmond White MD Unavailable Unavailable Zafar, Desmond White MD Unavailable Unavailable Re-disclosure Warning The records that you are about to access may contain information from federally-assisted alcohol or drug abuse programs. If such information is present, then the following federally mandated warning applies: This information has been disclosed to you from records protected by federal confidentiality rules (42 CFR part 2). The federal rules prohibit you from making any further disclosure of this information unless further disclosure is expressly permitted by the written consent of the person to whom it pertains or as otherwise permitted by 42 CFR part 2. A general authorization for the release of medical or other information is NOT sufficient for this purpose. The Federal rules restrict any use of the information to criminally investigate or prosecute any alcohol or drug abuse patient.The records that you are about to access may contain highly sensitive health information, the redisclosure of which is protected by Article 27-F of the [facility] Public Health law. If you continue you may have access to information: Regarding HIV / AIDS; Provided by facilities licensed or operated by the [facility] Office of Mental Health; or Provided by the [facility] Office for People With Developmental Disabilities. If such information is present, then the following [facility] mandated warning applies: This information has been disclosed to you from confidential records which are protected by state law. State law prohibits you from making any further disclosure of this information without the specific written consent of the person to whom it pertains, or as otherwise permitted by law. Any unauthorized further disclosure in violation of state law may result in a fine or care home sentence or both. A general authorization for the release of medical or other information is NOT sufficient authorization for further disc losure. Allergies and Adverse Reactions Type Description Substance Reaction Status Data Source(s ) aspirin Aspirin Aspirin headache Nausea/Vomiting Active eCW1 ([facility]) Drug allergy Codeine Phosphate Drug allergy Nausea/Vomiting Active eCW1 ([facility]) Codeine Sulfate Codeine Sulfate Codeine Sulfate itchy, hot upset,dizz y Active eCW1 ([facility]) Family History Family Member Name Family Member Gender Family Member Status Date o f Status Description Data Source(s) Unknown Unknown Problem MEDENT ([facility], ) Unknown Unknown Problem MEDENT ([facility], ) Unknown Unknown Problem MEDENT ([facility], ) Encounters Encounter Providers Location Date Indications Data Source(s ) Unknown [address] [facility] [place] [address] 05/10/2020 12:00:00 AM EST eCW1 ([facility]) Unknown [address] [facility] [place] [address] 05/10/2020 12:00:00 AM EST eCW1 ([facility]) Unknown [address] [facility] [place] [address] 04/21/2020 12:00:00 AM EST eCW1 ([facility]) Unknown [address] [facility] [place] [address] 04/05/2020 12:00:00 AM EST [facility] Outpatient Attender: Haley Giraldo MHCConsultant: Christopher Erazo rn, MD 03/17/2020 04:56:00 PM EDT - 03/17/2020 04:56:00 PM EDT [facility] [place] [address] [facility] [place] [address] 03/10/2020 12:00:00 AM EDT [facility]CW1 [facility] [place] [address] [facility] [place] [address] 03/09/2020 12:00:00 AM EDT [facility]CW1 [facility] [place] [address] [facility] [place] [address] 03/08/2020 12:00:00 AM EDT [facility]CW1 [facility] [place] [address] [facility] [place] [address] 03/05/2020 12:00:00 AM EDT eCW1 ([facility]) Outpatient Attender: Haley Giraldo MHCConsultant: Christopher Erazo rn, MD 02/04/2020 04:01:00 PM EDT - 02/04/2020 04:01:00 PM EDT [facility] Outpatient Attender: Haley Giraldo MHCConsultant: Christopher Erazo rn, MD 12/23/2019 10:01:00 AM EDT - 12/23/2019 10:01:00 AM EDT [facility] Outpatient Attender: Haley Giraldo MHCConsultant: Christopher Erazo rn, MD 11/19/2019 03:12:00 PM EDT - 11/19/2019 03:12:00 PM EDT [facility] 10/31/2019 11:18:01 A M EDT [facility] Outpatient Attender: Haley Giraldo MHCConsultant: Christopher Erazo rn, MD 10/22/2019 04:01:00 PM EDT - 10/22/2019 04:01:00 PM T [facility] Outpatient Attender: Haley Giraldo MHCConsultant: Christopher Erazo rn, MD 10/15/2019 03:01:00 PM EDT - 10/15/2019 03:01:00 PM EDT [facility] Outpatient Attender: Haley Giraldo MHCConsultant: Christopher Erazo rn, MD 09/18/2019 01:01:00 PM EDT - 09/18/2019 01:01:00 PM EDT [facility] Outpatient Attender: Haley Giraldo MHCConsultant: Christopher Erazo rn, MD 09/03/2019 04:03:00 PM EDT - 09/03/2019 04:03:00 PM EDT [facility] GME Resident [address] [place] [address] 09/03/2019 12:00:00 AM EDT eCW1 [facility] Outpatient Attender: Haley Giraldo MHCConsultant: Christopher Erazo rn, MD 08/12/2019 03:04:00 PM EDT - 08/12/2019 03:04:00 PM T [facility] Outpatient Attender: KIMMIE alegria 07/24/2019 11:15:00 AM EST MEDENT ([facility]) Outpatient Attender: Haley Giraldo MHCConsultant: Christopher Erazo rn, MD 06/18/2019 10:45:00 AM EST - 06/18/2019 10:45:00 AM EST [address] [address] 06/13/2019 12:00:00 AM EST eCW1 [facility] Outpatient 06/11/2019 02:55:00 PM EST [facility] [address] [place] [address] 06/11/2019 12:00:00 AM EST [facility] [address] [place] [address] 06/03/2019 12:00:00 AM EST eCW1 ([facility]) [address] [place] [address] 05/16/2019 12:00:00 AM EST [facility] [address] [place] [address] 05/08/2019 12:00:00 AM EST eCW1 ([facility]) Outpatient Attender: Haley Giraldo MHCConsultant: Christopher Erazo rn, MD 05/06/2019 11:26:00 AM [facility] - 05/06/2019 11:26:00 AM [facility] Outpatient Attender: SALLY CHO PAConsultant: Christopher dunn MD 05/06/2019 11:02:00 AM EST - 05/06/2019 11:02:00 AM [facility] Outpatient Attender: Haley Giraldo MHCConsultant: Christopher Erazo rn, MD 04/29/2019 10:47:00 AM [facility] - 04/29/2019 10:47:00 AM [facility] Outpatient Attender: Haley Giraldo MHCConsultant: Christopher Erazo rn, MD 04/08/2019 10:39:00 AM [facility] - 04/08/2019 10:39:00 AM [facility] Outpatient Attender: Haley Giraldo MHCConsultant: Christopher Erazo rn, MD 03/25/2019 10:51:00 AM [facility] - 03/25/2019 10:51:00 AM [facility] Outpatient Attender: Haley Giraldo MHCConsultant: Christopher Erazo rn, MD 03/18/2019 11:02:00 AM [facility] - 03/18/2019 11:02:00 AM [facility] Immunizations Vaccine Date Status Description Data Source(s) Meningococcal MCV4O 06/13/2019 01:32:00 PM EST completed eCW1 ([facility]) Meningococcal MCV4O 06/13/2019 01:32:00 PM EST completed eCW1 ([facility]) Meningococcal MCV4O 06/13/2019 01:32:00 PM EST completed eCW1 ([facility]) Meningococcal MCV4O 06/13/2019 01:32:00 PM EST completed eCW1 ([facility]) Meningococcal MCV4O 06/13/2019 01:32:00 PM EST completed eCW1 ([facility]) Meningococcal MCV4O 06/13/2019 01:32:00 PM EST completed eCW1 ([facility]) Meningococcal MCV4O 06/13/2019 01:32:00 PM EST completed eCW1 ([facility]) Meningococcal MCV4O 06/13/2019 01:32:00 PM EST completed eCW1 ([facility]) Medications Medication Brand Name Start Date Product Form Dose Route Admi nistrative Instructions Pharmacy Instructions Status Indications Reaction Description Data Source(s) Phentermine Hydrochloride 15 MG Oral Capsule Phentermi ne HCl 15 MG Phentermine HCl 15 MG 03/10/2020 12:00:00 AM EDT 1.0 {capsule} a ctive Phentermine HCl 15 MG eCW1 ([facility]) Phentermine Hydrochloride 37.5 MG Oral Tablet Phenterm ine HCl 37.5 MG Phentermine HCl 37.5 MG 03/10/2020 12:00:00 AM EDT 1.0 {tablet} active Phentermine HCl 37.5 MG eCW1 ([facility]) Phentermine Hydrochloride 15 MG Oral Capsule Phentermi ne HCl 15 MG Phentermine HCl 15 MG 03/10/2020 12:00:00 AM EDT 1.0 {capsule} a ctive Phentermine HCl 15 MG eCW1 ([facility]) Phentermine Hydrochloride 15 MG Oral Capsule Phentermi ne HCl 15 MG Phentermine HCl 15 MG 03/10/2020 12:00:00 AM EDT 1.0 {capsule} a ctive Phentermine HCl 15 MG eCW1 ([facility]) Phentermine Hydrochloride 37.5 MG Oral Tablet Phenterm ine HCl 37.5 MG Phentermine HCl 37.5 MG 03/10/2020 12:00:00 AM EDT 1.0 {tablet} active Phentermine HCl 37.5 MG eCW1 ([facility]) Phentermine Hydrochloride 37.5 MG Oral Tablet Phenterm ine HCl 37.5 MG Phentermine HCl 37.5 MG 03/10/2020 12:00:00 AM EDT 1.0 {tablet} active Phentermine HCl 37.5 MG eCW1 ([facility]) Phentermine Hydrochloride 37.5 MG Oral Tablet Phenterm ine HCl 37.5 MG Phentermine HCl 37.5 MG 03/10/2020 12:00:00 AM EDT 1.0 {tablet} active Phentermine HCl 37.5 MG eCW1 ([facility]) Phentermine Hydrochloride 37.5 MG Oral Tablet Phenterm ine HCl 37.5 MG Phentermine HCl 37.5 MG 03/10/2020 12:00:00 AM EDT 1.0 {tablet} active Phentermine HCl 37.5 MG eCW1 ([facility]) Phentermine Hydrochloride 37.5 MG Oral Tablet Phenterm ine HCl 37.5 MG Phentermine HCl 37.5 MG 03/10/2020 12:00:00 AM EDT 1.0 {tablet} active Phentermine HCl 37.5 MG eCW1 ([facility]) Phentermine Hydrochloride 15 MG Oral Capsule Phentermi ne HCl 15 MG Phentermine HCl 15 MG 03/10/2020 12:00:00 AM EDT 1.0 {capsule} a ctive Phentermine HCl 15 MG eCW1 ([facility]) Phentermine Hydrochloride 15 MG Oral Capsule Phentermi ne HCl 15 MG Phentermine HCl 15 MG 03/10/2020 12:00:00 AM EDT 1.0 {capsule} a ctive Phentermine HCl 15 MG eCW1 ([facility]) Phentermine Hydrochloride 37.5 MG Oral Tablet Phenterm ine HCl 37.5 MG Phentermine HCl 37.5 MG 03/10/2020 12:00:00 AM EDT 1.0 {tablet} active Phentermine HCl 37.5 MG eCW1 ([facility]) Phentermine Hydrochloride 15 MG Oral Capsule Phentermi ne HCl 15 MG Phentermine HCl 15 MG 03/10/2020 12:00:00 AM EDT 1.0 {capsule} a ctive Phentermine HCl 15 MG eCW1 ([facility]) Phentermine Hydrochloride 15 MG Oral Capsule Phentermi ne HCl 15 MG Phentermine HCl 15 MG 03/10/2020 12:00:00 AM EDT 1.0 {capsule} a ctive Phentermine HCl 15 MG eCW1 ([facility]) meloxicam 15 MG Oral Tablet Meloxicam 15 MG Meloxicam 15 MG 03/05/2020 12:00:00 AM EDT 1.0 {tablet} active Meloxicam 1 5 MG eCW1 ([facility]) meloxicam 15 MG Oral Tablet Meloxicam 15 MG Meloxicam 15 MG 03/05/2020 12:00:00 AM EDT 1.0 {tablet} active Meloxicam 1 5 MG eCW1 ([facility]) meloxicam 15 MG Oral Tablet Meloxicam 15 MG Meloxicam 15 MG 03/05/2020 12:00:00 AM EDT 1.0 {tablet} active Meloxicam 1 5 MG eCW1 ([facility]) 24 HR Phentermine 3.75 MG / topiramate 2 3 MG Extended Release Oral Capsule [Qsymia] Qsymia 3.75-23 MG Qsymia 3.75-23 MG 03/05/2020 12:00:00 AM EDT active Qsymia 3.75-23 MG eCW1 ([facility]) meloxicam 15 MG Oral Tablet Meloxicam 15 MG Meloxicam 15 MG 03/05/2020 12:00:00 AM EDT 1.0 {tablet} active Meloxicam 1 5 MG eCW1 ([facility]) 24 HR Phentermine 3.75 MG / topiramate 2 3 MG Extended Release Oral Capsule [Qsymia] Qsymia 3.75-23 MG Qsymia 3.75-23 MG 03/05/2020 12:00:00 AM EDT active Qsymia 3.75-23 MG eCW1 ([facility]) 24 HR Phentermine 3.75 MG / topiramate 2 3 MG Extended Release Oral Capsule [Qsymia] Qsymia 3.75-23 MG Qsymia 3.75-23 MG 03/05/2020 12:00:00 AM EDT active Qsymia 3.75-23 MG eCW1 ([facility]) 24 HR Phentermine 3.75 MG / topiramate 2 3 MG Extended Release Oral Capsule [Qsymia] Qsymia 3.75-23 MG Qsymia 3.75-23 MG 03/05/2020 12:00:00 AM EDT active Qsymia 3.75-23 MG eCW1 ([facility]) meloxicam 15 MG Oral Tablet Meloxicam 15 MG Meloxicam 15 MG 03/05/2020 12:00:00 AM EDT 1.0 {tablet} active Meloxicam 1 5 MG eCW1 ([facility]) 24 HR Phentermine 3.75 MG / topiramate 2 3 MG Extended Release Oral Capsule [Qsymia] Qsymia 3.75-23 MG Qsymia 3.75-23 MG 03/05/2020 12:00:00 AM EDT active Qsymia 3.75-23 MG eCW1 ([facility]) meloxicam 15 MG Oral Tablet Meloxicam 15 MG Meloxicam 15 MG 03/05/2020 12:00:00 AM EDT 1.0 {tablet} active Meloxicam 1 5 MG eCW1 ([facility]) meloxicam 15 MG Oral Tablet Meloxicam 15 MG Meloxicam 15 MG 03/05/2020 12:00:00 AM EDT 1.0 {tablet} active Meloxicam 1 5 MG eCW1 ([facility]) 24 HR Phentermine 3.75 MG / topiramate 2 3 MG Extended Release Oral Capsule [Qsymia] Qsymia 3.75-23 MG Qsymia 3.75-23 MG 03/05/2020 12:00:00 AM EDT active Qsymia 3.75-23 MG eCW1 ([facility]) 24 HR Phentermine 3.75 MG / topiramate 2 3 MG Extended Release Oral Capsule [Qsymia] Qsymia 3.75-23 MG Qsymia 3.75-23 MG 03/05/2020 12:00:00 AM EDT active Qsymia 3.75-23 MG eCW1 ([facility]) 24 HR Phentermine 3.75 MG / topiramate 2 3 MG Extended Release Oral Capsule [Qsymia] Qsymia 3.75-23 MG Qsymia 3.75-23 MG 03/05/2020 12:00:00 AM EDT active Qsymia 3.75-23 MG eCW1 ([facility]) meloxicam 15 MG Oral Tablet Meloxicam 15 MG Meloxicam 15 MG 03/05/2020 12:00:00 AM EDT 1.0 {tablet} active Meloxicam 1 5 MG eCW1 ([facility]) Orlistat 60 MG UNK 09/04/2019 12:00:00 AM EDT active 1 capsule with each main meal eCW1 ([facility]) Orlistat 60 MG UNK 09/04/2019 12:00:00 AM EDT suspended Orlistat 60 MG eCW1 ([facility]) Oseltamivir 75 MG Oral Capsule Oseltamivir Phosphate 07/24/2019 12:00:00 AM EST ORAL active MEDENT ( [facility]) Docusate Sodium 50 MG / sennosides, CARE HOME 8.6 MG Oral Tablet [SENOKOT-S] Senokot S 8.6-50 MG Senokot S 8.6-50 MG 05/19/2019 12:00:00 AM EST active 2 tabs as needed eCW1 ([facility]) Docusate Sodium 50 MG / sennosides, CARE HOME 8.6 MG Oral Tablet [SENOKOT-S] Senokot S 8.6-50 MG Senokot S 8.6-50 MG 05/19/2019 12:00:00 AM EST suspended Senokot S 8.6-50 MG eCW1 ([facility]) Insurance Providers Payer name Policy type / Coverage type Policy ID Covered democrat ID Covered democrat's relationship to andrews Policy Andrews Plan Information [facility] [id number] SP [id number] [facility] COMMUNITY PLAN [facility] [id number] SP [id number] [facility] [place] [id number] 18 [id number] Managed Care - [facility] Community Plan P [id number] S [id number] Medicaid S [id number] [facility] [place] [id number] 18 [id number] [facility]) O [id number] S [id number] [place] [id number] [place] [id number] [facility]-Medicaid [id number] [facility]-Medicaid [id number] ANSI-Medicaid [id number] ANSI-Medicaid [id number] ANSI-Medicaid [id number] ANSI-Medicaid [id number] ANSI-Medicaid [id number] ANSI-Medicaid [id number] ANSI-Medicaid [id number] ANSI-Medicaid [id number] Managed Care - [facility] P [id number] S [id number] ANSI-Medicaid [id number] ANSI-Medicaid [id number] [employer] COMMUNITY PLAN MCDO [id number] SP [id number] ANSI-Medicaid [id number] [facility] Health Maintenance Organization (HMO) [id number] Self [id number] Managed Care - Community Plan [employer] P [id number] S [id number] Medicaid S [id number] S [id number] [facility] [place] [id number] 18 [id number] [facility] [place] [id number] 18 [id number] [facility] [place] [id number] SP [id number] [facility](MCAID) O [id number] S [id number] UNHC AMERICHOICE XIX -HMO [id number] 18 [id number] Managed Care - Community Plan United [employer] P [id number] S [id number] Medicaid S [id number] S [id number] [facility] Health Maintenance Organization (HMO) Self [facility] [id number] SP [id number] Managed Care - Community Plan [employer] P [id number] S [id number] Medicaid S [id number] S [id number] Managed Care - Community Plan [employer] P [id number] S [id number] Medicaid S [id number] S [id number] Managed Care BCBS O [id number] S [id number] BLUE [employer]OSS C[employer] PLAN [id number] SP [id number] O BLUE [id number] SP [id number] MEDICAID [id number] SP [id number] Problems, Conditions, and Diagnoses Code Display Name Description Problem Type Effective Dates Data Source(s) E66.9 Obesity Obesity, unspecified Problem 03/05/2020 12:0 0:00 AM EDT eCW1 ([facility]) F603 Borderline personality disorder Borderline personality disorder Diagnosis 02/04/2020 04:01:00 PM EDT [facility] 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 Other specif ied depressive episodes Diagnosis 02/04/2020 04:01:00 PM EDT [facility] 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, in remission Cannabis abuse, in remiss ion Diagnosis 05/06/2019 11:26:00 AM EST [facility] Surgeries/Procedures Procedure Description Date Indications Data Source(s) URINE-NO MICRO 05/08/2019 12:00:00 AM EST eCW1 ([facility]) PELVIC EXAMINATION 05/08/2019 12:00:00 AM EST eCW1 ([facility]) Results ID Date Data Source [id number] 06/06/2020 10:15:00 AM EST [facility] Name Value Range Interpretation Code Description Data Tiffany rce(s) Supporting Document(s) SARS coronavirus 2 RNA Not Detected [facility] [place] This lab was ordered by [facility] and reported by [facility]. Procedure Social History Code Duration Value Status Description Data Source(s ) Smoking 03/05/2020 12:00:00 AM EDT Current Smoker completed Curre nt Smoker eCW1 ([facility]) Smoking 03/05/2020 12:00:00 AM EDT Current Smoker completed Curre nt Smoker eCW1 ([facility]) Smoking 03/05/2020 12:00:00 AM EDT Current Smoker completed Curre nt Smoker eCW1 ([facility]) Smoking 03/05/2020 12:00:00 AM EDT Current Smoker completed Curre nt Smoker eCW1 ([facility]) Smoking 03/05/2020 12:00:00 AM EDT Current Smoker completed Curre nt Smoker eCW1 ([facility]) Smoking 03/05/2020 12:00:00 AM EDT Current Smoker completed Curre nt Smoker eCW1 ([facility]) Smoking 03/05/2020 12:00:00 AM EDT Current Smoker completed Curre nt Smoker eCW1 ([facility]) Smoking 03/05/2020 12:00:00 AM EDT Current Smoker completed Curre nt Smoker eCW1 ([facility]) Vital Signs ID Date Data Source UNK Name Value Range Interpretation Code Description Data Source(s) Body weight 96.220 kg 96.220 kg MEDENT ([facility] [place] body weight 110 [lb_av] 110 [lb_av] MEDEN T ([facility]) Body mass index (BMI) [Ratio] 38.8 kg/m2 38.8 k g/m2 MEDENT ([facility]) Body weight 212.12 [lb_av] 212.12 [lb_av] MEDEN T ([facility]) Body height 62 [in_i] 62 [in_i] MEDENT ([facility]) 5'2" Heart rate 85 /min 85 /min MEDENT ([facility]) Diastolic blood pressure 81 mm[Hg] 81 mm[Hg] MEDENT ([facility]) Systolic blood pressure 133 mm[Hg] 133 mm[Hg] M EDENT ([facility]) Diastolic blood pressure 74 mm[Hg] 74 mm[Hg] eCW1 ([facility]) Systolic blood pressure 118 mm[Hg] 118 mm[Hg] e CW1 ([facility]) Body temperature 97.2 [degF] 97.2 [degF] eCW1 ( [facility]) Respiratory rate 16 /min 16 /min eCW1 ([facility]) Heart rate 86 /min 86 /min eCW1 ([facility]) Body mass index (BMI) [Ratio] 41.22 kg/m2 41.22 kg/m2 [facility] ([facility]) Body height 62 [in_i] 62 [in_i] eCW1 ([facility]) Body weight 225.4 [lb_av] 225.4 [lb_av] eCW1 ([facility]) Body mass index (BMI) [Ratio] 40.2 kg/m2 40.2 k g/m2 MEDENT ([facility]) Body height 62 [in_i] 62 [in_i] MEDENT ([facility], [facility]) 5'2" Body weight 220.00 [lb_av] 220.00 [lb_av] MEDEN T ([facility], [facility]) Body temperature 98.8 [degF] 98.8 [degF] MEDENT ([facility], [facility]) Oxygen saturation in Arterial blood by Pulse oximetry 97 % 97 % MEDENT ([facility], [facility]) Respiratory rate 16 /min 16 /min MEDENT ( [facility], [facility]) Heart rate 95 /min 95 /min MEDENT ([facility], [facility]) Diastolic blood pressure 77 mm[Hg] 77 mm[Hg] MEDENT ([facility], [facility]) Systolic blood pressure 112 mm[Hg] 112 mm[Hg] M EDENT ([facility], [facility]) Diastolic blood pressure 76 mm[Hg] 76 mm[Hg] eCW1 ([facility]) Systolic blood pressure 122 mm[Hg] 122 mm[Hg] e CW1 ([facility]) Body temperature 98.5 [degF] 98.5 [degF] eCW1 ( [facility]) Respiratory rate 20 /min 20 /min eCW1 ([facility]) Heart rate 100 /min 100 /min eCW1 ([facility]) Body mass index (BMI) [Ratio] 37.49 kg/m2 37.49 kg/m2 eCW1 ([facility]) Body height 62 [in_us] 62 [in_us] eCW1 ([facility]) Body weight Measured 205 [lb_av] 205 [lb_av] eC W1 ([facility]) Patient Treatment Plan of Care Planned Activity Planned Date Details Description Data Source (s) Phentermine Hydrochloride 37.5 MG Oral Tablet 03/10/2020 12:00:00 A M EDT eCW1 ([facility]) Phentermine Hydrochloride 15 MG Oral Capsule 03/10/2020 12:00:00 AM EDT eCW1 ([facility]) Phentermine Hydrochloride 37.5 MG Oral Tablet 03/10/2020 12:00:00 A M EDT eCW1 ([facility]) Phentermine Hydrochloride 15 MG Oral Capsule 03/10/2020 12:00:00 AM EDT eCW1 ([facility]) Phentermine Hydrochloride 15 MG Oral Capsule 03/10/2020 12:00:00 AM EDT eCW1 ([facility]) Phentermine Hydrochloride 37.5 MG Oral Tablet 03/10/2020 12:00:00 A M EDT eCW1 ([facility]) Phentermine Hydrochloride 15 MG Oral Capsule 03/10/2020 12:00:00 AM EDT eCW1 ([facility]) Phentermine Hydrochloride 37.5 MG Oral Tablet 03/10/2020 12:00:00 A M EDT eCW1 ([facility]) Phentermine Hydrochloride 15 MG Oral Capsule 03/10/2020 12:00:00 AM EDT eCW1 ([facility]) Phentermine Hydrochloride 37.5 MG Oral Tablet 03/10/2020 12:00:00 A M EDT eCW1 ([facility]) Phentermine Hydrochloride 15 MG Oral Capsule 03/10/2020 12:00:00 AM EDT eCW1 ([facility]) Phentermine Hydrochloride 37.5 MG Oral Tablet 03/10/2020 12:00:00 A M EDT eCW1 ([facility]) Phentermine Hydrochloride 15 MG Oral Capsule 03/10/2020 12:00:00 AM EDT eCW1 ([facility]) Phentermine Hydrochloride 37.5 MG Oral Tablet 03/10/2020 12:00:00 A M EDT eCW1 ([facility]) 24 HR Phentermine 3.75 MG / topiramate 2 3 MG Extended Release Oral Capsule [Qsymia] 03/05/2020 12:00:00 AM EDT eCW1 ([facility]) meloxicam 15 MG Oral Tablet 03/05/2020 12:00:00 AM EDT eCW1 ([facility]) 24 HR Phentermine 3.75 MG / topiramate 2 3 MG Extended Release Oral Capsule [Qsymia] 03/05/2020 12:00:00 AM EDT eCW1 ([facility]) meloxicam 15 MG Oral Tablet 03/05/2020 12:00:00 AM EDT eCW1 ([facility]) 24 HR Phentermine 3.75 MG / topiramate 2 3 MG Extended Release Oral Capsule [Qsymia] 03/05/2020 12:00:00 AM EDT eCW1 ([facility]) meloxicam 15 MG Oral Tablet 03/05/2020 12:00:00 AM EDT eCW1 ([facility]) 24 HR Phentermine 3.75 MG / topiramate 2 3 MG Extended Release Oral Capsule [Qsymia] 03/05/2020 12:00:00 AM EDT eCW1 ([facility]) meloxicam 15 MG Oral Tablet 03/05/2020 12:00:00 AM EDT eCW1 ([facility]) 24 HR Phentermine 3.75 MG / topiramate 2 3 MG Extended Release Oral Capsule [Qsymia] 03/05/2020 12:00:00 AM EDT eCW1 ([facility]) meloxicam 15 MG Oral Tablet 03/05/2020 12:00:00 AM EDT eCW1 ([facility]) 24 HR Phentermine 3.75 MG / topiramate 2 3 MG Extended Release Oral Capsule [Qsymia] 03/05/2020 12:00:00 AM EDT eCW1 ([facility]) meloxicam 15 MG Oral Tablet 03/05/2020 12:00:00 AM EDT eCW1 ([facility]) 24 HR Phentermine 3.75 MG / topiramate 2 3 MG Extended Release Oral Capsule [Qsymia] 03/05/2020 12:00:00 AM EDT eCW1 ([facility]) meloxicam 15 MG Oral Tablet 03/05/2020 12:00:00 AM EDT eCW1 ([facility]) meloxicam 15 MG Oral Tablet 03/05/2020 12:00:00 AM EDT eCW1 ([facility]) 24 HR Phentermine 3.75 MG / topiramate 2 3 MG Extended Release Oral Capsule [Qsymia] 03/05/2020 12:00:00 AM EDT eCW1 ([facility]) Orlistat 60 MG 09/04/2019 12:00:00 AM EDT eCW1 ([facility]) Docusate Sodium 50 MG / sennosides, [facility] 8.6 MG Oral Ta blet [SENOKOT-S] 05/19/2019 12:00:00 AM FRANK eCW1 ([facility])
--- OUTSIDE RECORDS SUMMARY | 2020-06-11 06:24 | CCD | Continuity of Care Document ---
Author Author Jordyn GIRALDO [facility] Organization Unknown Address [address] [place] [address] Phone [phone] Problems Active Problems Provider Date Nondependent cannabis abuse in remission Lisandro Vale PA-C Onset: 12/14/2017 Borderline personality disorder Lisandro Vale PA-C Onset: 0 12/14/2017 Social History Type Date Description Comments Sex Unknown Allergies, Adverse Reactions, Alerts Active Allergies Reaction Severity Comments Date Aspirin Moderate 09/22/2016 Codeine Moderate 09/22/2016 Medications Active Medications SIG Qnty Indications Ordering Provide r Date Cymbalta 60mg Caps DR Part 1 by mouth every day 30caps F60.3 Haris Nieves MD 01/08/2019 Immunizations Description No Information Available Vital Signs Description No Information Available Results Description No Information Available Procedures Description No Information Available Medical Devices Description No Information Available Encounters Description No Information Available Assessments Date Code Description Provider 02/04/2020 F32.89 Other specified depressive episo derrick MAXIME Murphy, CAS 02/04/2020 F60.3 Borderline personality disorder MAXIME Murphy, CASAC 12/23/2019 F32.89 Other specified depressive episo derrick MAXIME Murphy, CASAC 12/23/2019 F60.3 Borderline personality disorder MAXIME Murphy, CASAC 11/19/2019 F32.89 Other specified depressive episo derrick MAXIME Murphy, CASAC 11/19/2019 F60.3 Borderline personality disorder MAXIME Murphy, CASAC 10/22/2019 F32.89 Other specified depressive episo derrick MAXIME Murphy, CASAC 10/22/2019 F60.3 Borderline personality disorder MAXIME Murphy, CASAC 10/15/2019 F32.89 Other specified depressive episo derrick Haley Giraldo [facility], CASAC 10/15/2019 F60.3 Borderline personality disorder Haley Giraldo LM, CASAC 09/18/2019 F32.89 Other specified depressive episo derrick Haley Giraldo [facility], CASAC 09/18/2019 F60.3 Borderline personality disorder Haley Giraldo [facility] Plan of Treatment No Information Available Functional Status Description No Information Available Mental Status Description No Information Available Referrals Description No Information Available
--- OUTSIDE RECORDS SUMMARY | 2020-06-11 06:24 | CCD ---
Author Author [facility] Organization [facility] Address Unknown Phone Unavailable Care Team Providers Care Pickle Solution Maker Name Role Phone Faheem Koenig Unavailable PROBLEMS Type Condition ICD9-CM Code [id number] Code Onset Dates Condition S tatus SNOMED Code Notes Problem Smoking F17.200 Active 109825322 Problem Obesity, unspecified E66.9 Active 752527268 Problem Carpal tunnel syndrome on left G56.02 Active 2 39326065794504 Problem Borderline personality disorder F60.3 Active 23964222 Problem Bipolar affective disorder, remission status unspecified F31.9 Active 58431307 Problem BMI 37.0-37.9, adult Z68.37 Active 561063150 ALLERGIES Allergen (clinical drug ingredient) Drug/Non Drug Allergy do cumented on EMR Reaction Allergy Type Onset Date Status codeine Codeine Sulfate(NDC Code:[address]-68) itchy, h ot upset,dizzy Drug Allergy Active Codeine Phosphate(NDC Code:[address]-78) Nausea/Vomiting Drug Allergy Active aspirin Aspirin(NDC Code:[address]-57) headache Drug Allergy Active ENCOUNTERS from 1982 to 2020-04-23 Encounter Location Date Provider Diagnosis [facility] Resident [address] [place] [address] Apr, Faheem Koenig IMMUNIZATIONS Vaccine Route Administration Date Status Meningococcal [...] Education Language: Question Answer Notes Languages spoken: Welsh Muslim: Question Answer Notes Muslim 08 Yazidism Sexual Hx: Question Answer Notes Had sex [...] Notes Start Da te End Date Status Phentermine HCl 37.5 MG 1 tablet Orally Once a day for 30 days Feb, Active Meloxicam 15 MG 1 tablet Orally Once a day for 7 day(s) Feb, Active Qsymia 3.75-23 MG 1 capsule daily for 2 weeks then two capsules daily Orally Once a day for 30 days Feb, Active Phentermine HCl 15 MG 1 capsule Orally Once a day for 30 days Feb, Active PROCEDURES No Information RESULTS No Results REASON FOR VISIT no showed MEDICAL (GENERAL) HISTORY Type Description Date Medical History Bipolar Disorder with Depression/Anxiety /Borderline/PTSD Medical History Anemia and Endometriosis (s/p EUSEBIA with B JEFF 2011) Medical History Obesity Medical History Fibrocystic [...] Medication Name Sig Start Date Stop Date Phentermine HCl 37.5 MG 1 tablet Orally Once a day for 30 days 2 1 Feb, 2020 Qsymia 3.75-23 MG 1 capsule daily for 2 weeks then two capsules daily Orally Once a day for 30 days Feb, Phentermine HCl 15 MG 1 capsule Orally Once a day for 30 days Feb, Meloxicam 15 MG 1 tablet Orally Once a day for 7 day(s) Feb, Insurance Providers Payer Name Payer Address Payer Phone Insured Name Patient Relati onship to Insured Coverage Start Date Coverage End Date [facility] [address] [facility] [id number] DAI MCKEON self
--- OUTSIDE RECORDS SUMMARY | 2020-06-11 06:24 | CCD ---
Author Author [facility] Organization [facility] Address Unknown Phone Unavailable Care Team Providers Care Directory Operator Name Role Phone Lakeshia Kemp Unavailable PROBLEMS Type Condition ICD9-CM Code [id number] Code Onset Dates Condition S tatus SNOMED Code Notes Problem Smoking F17.200 Active 700633594 Problem Obesity, unspecified E66.9 Active 625011180 Problem Carpal tunnel syndrome on left G56.02 Active 2 52638798041716 Problem Borderline personality disorder F60.3 Active 71503166 Problem Bipolar affective disorder, remission status unspecified F31.9 Active 60438662 Problem BMI 37.0-37.9, adult Z68.37 Active 802730224 ALLERGIES Allergen (clinical drug ingredient) Drug/Non Drug Allergy do cumented on EMR Reaction Allergy Type Onset Date Status codeine Codeine Sulfate(NDC Code:[address]-21) itchy, h ot upset,dizzy Drug Allergy Active Codeine Phosphate(NDC Code:[address]-35) Nausea/Vomiting Drug Allergy Active aspirin Aspirin(NDC Code:[address]-82) headache Drug Allergy Active ENCOUNTERS from 1982 to 2020-04-06 Encounter Location Date Provider Diagnosis [facility] Resident [address] [place] [address] 16 Mar, 2020 Lakeshia Kemp IMMUNIZATIONS Vaccine Route Administration Date [...] Education Language: Question Answer Notes Languages spoken: Paraguayan Bahai: Question Answer Notes Bahai 08 Gnosticist Sexual Hx: Question Answer Notes Had sex [...] Information RESULTS No Results REASON FOR VISIT Phentermine MEDICAL (GENERAL) HISTORY Type Description Date Medical [...] Once a day for 7 day(s) Feb, Next Appt Details Provider Name:Faheem Koenig, 2 020-04-21 10:00:00 AM, [address] [facility], [place], [address], Insurance Providers Payer Name Payer Address Payer Phone Insured Name Patient Relati onship to Insured Coverage Start Date Coverage End Date [facility] [employer] [employer] [address] [facility] [id number] DAI MCKEON self
--- OUTSIDE RECORDS SUMMARY | 2020-06-11 06:24 | CCD ---
Author Author [facility] Organization [facility] Address Unknown Phone Unavailable Care Team Providers Care Template Reproduction Technician Name Role Phone Lakeshia Kemp Unavailable PROBLEMS Type Condition ICD9-CM Code [id number] Code Onset Dates Condition S tatus SNOMED Code Notes Problem Smoking F17.200 Active 636155769 Problem Obesity, unspecified E66.9 Active 892724331 Problem Carpal tunnel syndrome on left G56.02 Active 2 23280602780877 Problem Borderline personality disorder F60.3 Active 30912404 Problem Bipolar affective disorder, remission status unspecified F31.9 Active 66336465 Problem BMI 37.0-37.9, adult Z68.37 Active 755666393 ALLERGIES Allergen (clinical drug ingredient) Drug/Non Drug Allergy do cumented on EMR Reaction Allergy Type Onset Date Status codeine Codeine Sulfate(NDC Code:[address]-47) itchy, h ot upset,dizzy Drug Allergy Active Codeine Phosphate(NDC Code:[address]-05) Nausea/Vomiting Drug Allergy Active aspirin Aspirin(NDC Code:[address]-13) headache Drug Allergy Active ENCOUNTERS from 1982 to 2020-05-11 Encounter Location Date Provider Diagnosis [facility] [place] [address] [place] [address] Apr, Lakeshia Kemp IMMUNIZATIONS Vaccine Route Administration [...] Education Language: Question Answer Notes Languages spoken: Macedonian Latter Day: Question Answer Notes Latter Day 08 [employer] Sexual Hx: Question Answer Notes Had sex [...] Information RESULTS No Results REASON FOR VISIT New Refill Request MEDICAL (GENERAL) HISTORY Type Description [...] Name:Faheem Koenig, 2 021-01-07 03:30:00 PM, [address] [facility], [place], [address], Insurance Providers Payer Name Payer Address Payer Phone Insured Name Patient Relati onship to Insured Coverage Start Date Coverage End Date [facility] [employer] [address] [facility] [id number] DAI MCKEON self
[2020-06-11] MEDS ORDERED: ST J300C2 PO (06:43)
[2020-06-11] MEDS ORDERED: fentaNYL 100 MCG/2 ML INJECTION (J3010) As Ordered ONE (07:23)
[2020-06-11] MEDS ORDERED: MIDAZOLAM INJ 2MG/2ML VIAL (J2250 PER 1MG) As Ordered ONE (07:23)
[2020-06-11] MEDS ORDERED: LIDOCAINE 2% 100MG/5ML SDV (FOR ANES.) As Ordered ONE (07:23)
[2020-06-11] MEDS ORDERED: ONDANSETRON 4MG/2ML VIAL As Ordered ONE (07:24)
[2020-06-11] MEDS ORDERED: dexameTHASONE 4 MG/ML 1ML VIAL (J1100 PER 1MG) As Ordered ONE (07:24)
[2020-06-11] MEDS ORDERED: propofoL 200 MG/20 ML VIAL As Ordered ONE (09:50)
[2020-06-11] MEDS ORDERED: BUPIVACAINE HCL 0.25% 30ML VIAL As Ordered ONE (09:52)
[2020-06-11] MEDS ORDERED: LIDOCAINE 1% SDV 30ML VIAL As Ordered ONE (09:52)
[2020-06-11] MEDS ORDERED: KETAMINE HCL 200 MG/20 ML VIAL As Ordered ONE (09:53)
--- NOTE | 2020-06-11 11:35 | ROOPDOC ---
[facility] Report Of Operation Report of Operation DATE OF PROCEDURE: 06/11/20 PREPROCEDURE DIAGNOSES: lipoma left medial upper arm. POSTPROCEDURE DIAGNOSES: lipoma left medial upper arm. PROCEDURE: Excision of lipoma, left medial upper arm. SURGEON: Shane Tapia MD TELEVISION ACTOR: ANESTHESIA: General (LMA) with local anesthesia . ESTIMATED BLOOD LOSS: Approximately 10 mL. COMPLICATIONS: none. REMARKS: 40 F with enlarging soft tissue lump on her left upper arm area towards the axillary side giving her discomfort. PROCEDURE NOTE: well formed circular lipoma 5.5x 5cms removed. DESCRIPTION OF PROCEDURE: Patient was brought to the operating room, positioned on the table. Compression boots placed on both lower extremities were DVT prophylaxis. Gen. anesthesia provided using laryngeal mask airway. Her left arm, chest is prepped and draped in usual sterile fashion.We paused for a surgical timeout using both pre- incision safety checklist to verify correct patient, procedure site and additional clinical information prior to beginning the procedure. We paused for a surgical timeout using both pre-incision safety checklist to verify correct patient, procedure site and additional clinical information prior to beginning the procedure Externally she has about 10 x 9 cm bulky soft tissue lump at the medial aspect of her left upper arm area close to the axilla with slight thinning of skin. I infiltrated the area with a mixture of 1% lidocaine and 1/4% Marcaine into the subcutaneous tissue and intradermally along the planned line of incision. He transverse incision was then created on top of the lump. A skin and subcutaneous tissue flap was then created to come around the lipoma. This is noticeably thinner on the upper portion of the flap where the lipoma is close to the skin surface. Mostly with blunt dissection was able to get around this with a few flimsy adhesions divided with Bovie cautery. Roughly about a 5 x 5 cm round well-formed lipoma was removed. Hemostasis then performed with Bovie cautery. I closed the subcutaneous area getting some off into the slight undermining of the skin of the upper flap. The skin was then closed with 4-0 Monocryl subcuticular fashion. Steri-Strips and gauze dressing and Tegaderm then used to cover the incision. Patient tolerated the procedure well. She was promptly awakened, extubated and brought to recovery room in stable condition. SHANE TAPIA MD Jun 11, 2020 11:35
[2020-06-11] MEDS ORDERED: LR 1,000 ML IV SCH (11:45)
[2020-06-11] MEDS ORDERED: IBUPROFEN 600MG TAB PO PRN (11:45)
[2020-06-11] MEDS ORDERED: HYDROMORPHONE HCL 0.5 MG/ 0.5 ML SYRINGE (J1170 PER 1) IV PRN (11:45)
[2020-06-11] MEDS ORDERED: ACETAMINOPHEN TAB 650MG DOSE (2X325MG) PO PRN (11:45)
[2020-06-11] MEDS ORDERED: fentaNYL 100 MCG/2 ML INJECTION (J3010) IV PRN (11:45)
[2020-06-11] MEDS ORDERED: oxyCODONE 5MG TAB PO PRN (11:45)
[2020-06-11] MEDS ORDERED: ONDANSETRON 4MG/2ML VIAL IV PRN (11:45)
[2020-06-11] MEDS ORDERED: KETOROLAC 60MG 2ML VIAL As Ordered ONE (12:17)
[2020-06-11 12:25] VITALS: BP 145/85
== END 2020-06-11 12:58 | disposition home or self-care (01) ==
LOC: M SDC 06:17
PROVIDERS: ATTEND Surgery
DX: D17.22 Benign lipomatous neoplasm of skin and subcutaneous tissue of left arm (principal); I10 Essential (primary) hypertension; K44.9 Diaphragmatic hernia without obstruction or gangrene; K58.8 Other irritable bowel syndrome; J45.909 Unspecified asthma, uncomplicated; F31.9 Bipolar disorder, unspecified; F41.9 Anxiety disorder, unspecified; Z79.899 Other long term (current) drug therapy; F17.218 Nicotine dependence, cigarettes, with other nicotine-induced disorders; Z88.5 Allergy status to narcotic agent; Z88.8 Allergy status to other drugs, medicaments and biological substances; Z91.040 Latex allergy status
CPT/HCPCS: 11406; 88304; J1100; J1885; J2250; J2405; J3010

== ENCOUNTER 2021-02-23 21:34 | Emergency (ER) | payer OTHER ==
[~2021-02-23] VITALS: Ht 157.5 cm; Wt 106.5 kg
[2021-02-23 21:34] VITALS: BP 144/70
[~2021-02-23 21:34] MED LIST changes: -CelecoXIB (CeleBREX) 100 MG CAP PO ONE; -LR 1,000 ML IV ONE; -PHEN37.52; +PHEN37.58; +ST J300C2 PO
[2021-02-23] MEDS ORDERED: CETI10CH PO (21:46)
== END 2021-02-24 04:07 | disposition left against medical advice (07) ==
LOC: M ED 21:34
DX: Z53.29 Procedure and treatment not carried out because of patient's decision for other reasons (principal)

== ENCOUNTER → 2021-03-18 | Outpatient (REF) | payer OTHER ==
[~2021-03-18] MED LIST changes: +CETI10CH PO
== END ==
LOC: M SFHCPLAZ 15:59
PROVIDERS: ATTEND Family Medicine
DX: R05.8 Other specified cough (principal)

== ENCOUNTER → 2021-03-21 | Outpatient (CLI) | payer OTHER ==
--- NOTE | 2021-03-21 13:00 | REP ---
INDICATION: COUGH. COMPARISON: 02/05/2019 a portable exam FINDINGS: The superior mediastinal structures are midline. The cardiac silhouette is unremarkable in size, shape, and position. The diaphragmatic surfaces of the lungs are regular, and the costophrenic angles are clear. The pulmonary stringer are clear. The imaged osseous structures are intact. IMPRESSION: There is no acute cardiopulmonary disease. The round metallic radiodensity in the left anterior chest wall is unchanged. <Electronically signed by Moises Li > 03/21/21 1257
[2021-03-21 18:01] LABS: BASO # 0.1 10^3/uL (0.0-0.2); BASO % 0.7 % (0.0-1.0); EOS # 0.6 10^3/uL (0.0-0.5); EOS % 5.5 % (0.0-3.0); HEMATOCRIT 42.9 % (36.0-47.0); HEMOGLOBIN 13.9 g/dl (12.0-15.5); LYMPH # 4.3 10^3/uL (1.5-5.0); LYMPH % 41.8 % (24.0-44.0); MEAN CORPUSCULAR HEMOGLOBIN 27.9 pg (27.0-33.0); MEAN CORPUSCULAR HGB CONC 32.4 g/dl (32.0-36.5); MEAN CORPUSCULAR VOLUME 86.1 fl (80.0-96.0); MONO # 0.7 10^3/uL (0.0-0.8); MONO % 6.9 % (2.0-8.0); NEUTROPHILS # 4.6 10^3/uL (1.5-8.5); NEUTROPHILS % 44.8 % (36.0-66.0); PLATELET COUNT, AUTOMATED 266 10^3/uL (150-450); RED BLOOD COUNT 4.98 10^6/uL (4.00-5.40); WHITE BLOOD COUNT 10.2 10^3/uL (4.0-10.0)
[2021-03-21 18:16] LABS: BLOOD UREA NITROGEN 7 MG/DL (7-18); C REACTIVE PROTEIN QUANTITATIV 0.75 MG/DL (0.00-0.30); CALCIUM LEVEL 9.3 MG/DL (8.5-10.1); CARBON DIOXIDE LEVEL 28 MEQ/L (21-32); CHLORIDE LEVEL 109 MEQ/L (98-107); CREATININE FOR GFR 0.98 MG/DL (0.55-1.30); GLOMERULAR FILTRATION RATE > 60.0 (>60); GLUCOSE, FASTING 86 MG/DL (70-100); POTASSIUM SERUM 4.1 MEQ/L (3.5-5.1); SODIUM LEVEL 141 MEQ/L (136-145)
== END ==
LOC: M WUC 12:10
PROVIDERS: ATTEND Student in an Organized Health Care Education/Training Program
DX: R05.8 Other specified cough (principal); R07.81 Pleurodynia

== ENCOUNTER 2021-03-27 21:58 | Emergency (ER) | payer OTHER ==
[~2021-03-27] VITALS: Ht 157.5 cm; Wt 104.1 kg
[2021-03-27 22:03] VITALS: BP 129/69
[2021-03-27] MEDS ORDERED: PROV108A INH (22:11)
--- OUTSIDE RECORDS SUMMARY | 2021-03-27 22:56 | CCD | Continuity of Care Document ---
Author Author Jordyn SPEARS ND Organization Unknown [place] [address] Phone [phone] Care Team Providers Care Powered Bridge Specialist Name Role Phone [facility] AUTM [phone] Problems Description No Information Available Social History Type Date Description Comments Sex Unknown ETOH Use Denies alcohol use Tobacco Use Start: Unknown Patient is a current smoker, smo kes every day <1/2ppd Smoking Status Reviewed: 02/26/21 Patient is a current smoker, smokes every day <1/2ppd Allergies, Adverse Reactions, Alerts Active Allergies Criticality Reaction | Severity Comments Date Aspirin Unable to assess criticality 07/24/2019 Codeine Unable to assess criticality 07/24/2019 Medications Active Medications SIG Qnty Indications Ordering Provide r Date Xyzal Allergy 24HR 5mg Tablets 1 tab by mouth at bedtime 30tabs Irwin Canales JR., M.D. Proair HFA 108(90Base) mcg/Act Aer osol 2 puffs by mouth inhaled every 4-6 hours as needed 8.500gm J20.9 Irwin Canales JR., M.D. 02/26/2021 Amoxicillin/Clavulanate Potassium 875-125mg Tablets take one tablet by mouth twice a day x 10 days 20tabs J 20.9 Irwin Canales JR., M.D. 02/26/2021 Claritin Unknown History Medications No Active Medications Unknown 01/2021 - 02/26/2021 No Active Medications Unknown 01/2021 - 10/27/2020 Prednisone 20mg Tablets 1 tab by mouth twice a day for 4 days 8tabs J20.9 Rachel Bruner JR. 10/27/2020 - 10/31/2020 Fluticasone Propionate 50mcg/Act Suspension 2 sprays in each nostril once daily 16gm J01.90 Mary Canales JR., M.D. 10/27/2020 - 11/23/2020 Proair HFA 108(90Base) mcg/Act Aer osol 2 puffs by mouth inhaled every 4-6 hours as needed 8.500gm J20.9 Irwin Canales JR., M.D. 10/27/2020 - 11/23/2020 Immunizations Description No Information Available Vital Signs Date Vital Result Comment 02/26/2021 11:31am BP Systolic 117 mmHg BP Diastolic 80 mmHg Heart Rate 65 /min Respiratory Rate 18 /min O2 % BldC Oximetry 97 % Body Temperature 98.0 F Weight 231.00 lb Height 62 inches 5'2" BMI (Body Mass Index) 42.2 kg/m2 Pain Level 6 11/23/2020 6:26pm BP Systolic 124 mmHg BP Diastolic 90 mmHg Heart Rate 71 /min Respiratory Rate 19 /min O2 % BldC Oximetry 95 % Body Temperature 99.1 F Weight 225.00 lb Height 62 inches 5'2" BMI (Body Mass Index) 41.1 kg/m2 Pain Level 1 Results Description No Information Available Procedures Date Code Description Status 02/26/2021 49211 Office/Outpatient Established Lo w MDM 20-29 Min Completed 11/23/2020 84579 Office/Outpatient Established Lo w MDM 20-29 Min Completed 10/27/2020 65179 Office/Outpatient Established Lo w MDM 20-29 Min Completed Medical Devices Description No Information Available Encounters Type Date Location Provider Dx Diagnosis Office Visit 02/26/2021 9:20a Main Office ROSALINE Ramos J20.9 Acute bronchitis, unspecified Z20.828 Contact w and exposure to ot h viral communicable diseases Office Visit 11/23/2020 6:15p Main Office Ann Hernandez NP J00 Acute nasopharyngitis [common cold] Z20.828 Contact w and exposure to ot h viral communicable diseases Office Visit 10/27/2020 5:00p Main Office ROSALINE Ramos J20.9 Acute bronchitis, unspecified J01.90 Acute sinusitis, unspecified Z20.828 Contact w and exposure to ot h viral communicable diseases Assessments Date Code Description Provider 02/26/2021 J20.9 Acute bronchitis, unspecified ROSALINE Jordan 02/26/2021 Z20.828 Contact with and (gonzalez spected) exposure to other viral communicable diseases ROSALINE Ramos 11/23/2020 J00 Acute nasopharyngitis [common co ld] Ann Hernandez, HALLIE 11/23/2020 Z20.828 Contact with and (gonzalez spected) exposure to other viral communicable diseases Ann Hernandez, HALLIE 10/27/2020 J20.9 Acute bronchitis, unspecified ROSALINE Jordan 10/27/2020 J01.90 Acute sinusitis, unspecified ROSALINE Smith 10/27/2020 Z20.828 Contact with and (gonzalez spected) exposure to other viral communicable diseases ROSALINE Ramos Plan of Treatment 02/26/2021 - ROSALINE Ramos* J20.9 Acute bronchitis, unspecified* New Medication:* Proair HFA 108(90 Base) mcg/Act - 2 puffs by mouth inhaled every 4-6 hours as needed * Amoxicillin/Clavulanate Potassium 875-125 mg - take one tablet by mouth twice a day x 10 days * Z20.828 Contact with and (suspected) exposure to other viral communicable diseases Functional Status Description No Information Available Mental Status Description No Information Available Referrals Description No Information Available
--- OUTSIDE RECORDS SUMMARY | 2021-03-27 22:56 | CCD | Continuity of Care Document ---
Author Author Jordyn GUZMAN [facility] Organization Unknown Address [address] [place] [address], [address] [place] [address] Phone [phone] Care Team Providers Care Candle Maker Name Role Phone Lakeshia Kemp D.O. AUTM [phone] Ronal Reddy M.D. AUTM [phone] Problems Active Problems Provider Date Bilateral chronic serous otitis Patrick Deleon M.D. Onset: 08/15/2017 Social History Type Date Description Comments Sex Unknown ETOH Use Denies alcohol use Recreational Drug Use Denies Drug Use Tobacco Use Start: Unknown Non Smoker Allergies and adverse reactions Active Allergies Criticality Reaction | Severity Comments Date Aspirin Unable to assess criticality 06/09/2016 Codeine Unable to assess criticality 06/09/2016 Medications Active Medications SIG Qnty Indications Ordering Provide r Date Cetirizine HCL 10mg Tablets 1 by mouth every day Unknown Tums 500mg Chewtabs 1 tab by mouth as needed Unknown Immunizations Description No Information Available Vital Signs Date Vital Result Comment 02/23/2021 1:04pm BP Systolic 124 mmHg BP Diastolic 84 mmHg Height 62 inches 5'2" Weight 231.00 lb BMI (Body Mass Index) 42.2 kg/m2 [place] Body Weight 110 lb Weight 104.782 kg BSA (Body Surface Area) 2.03 m2 06/30/2020 10:15am BP Systolic 140 mmHg BP Diastolic 80 mmHg Height 62 inches 5'2" Weight 208.00 lb BMI (Body Mass Index) 38.0 kg/m2 [place] Body Weight 110 lb Weight 94.349 kg BSA (Body Surface Area) 1.94 m2 Results Description No Information Available Procedures Description No Information Available Medical Devices Description No Information Available Encounters Description No Information Available Assessments Date Code Description Provider 02/23/2021 K21.9 Gastro-esophageal reflux disease without esophagitis IFRAH Jones Plan of Treatment 02/23/2021 - IFRAH Jones* K21.9 Gastro-esophageal reflux disease without esophagitis * * New Orders:* Endoscopy, Ordered: 02/23/21 * Comments:* Will arrange for upper endoscopy. Reviewed risks and benefits of the procedure, as well as other options, with the patient. Prep for this procedure was discussed with patient. Patient verbalized understanding of all of the above and is in agreement to proceed. Patient will seek medical attention for any acute changes. Will monitor. * Follow up:* As scheduled, sooner if needed. Functional Status Description No Information Available Mental Status Description No Information Available Referrals Refer to Reason for Referral Status Appt Date German Edmond M.D. K21.9 GERD Scheduled 02/23 [facility] [address], [place] [address] [phone]
--- OUTSIDE RECORDS SUMMARY | 2021-03-27 22:56 | CCD | Continuity of Care Document ---
Author Author Jordyn SPEARS DE Organization [place] [address] Phone [phone] Care Team Providers Care Bed Maker Name Role Phone [facility] AUTM [phone] Problems Description No Information Available Social History [...] Available Procedures Date Code Description Status 02/26/2021 45042 Office/Outpatient Established Lo w MDM 20-29 Min Completed 11/23/2020 56070 Office/Outpatient Established Lo w MDM 20-29 Min Completed 10/27/2020 09157 Office/Outpatient Established Lo w MDM 20-29 Min [...]
--- OUTSIDE RECORDS SUMMARY | 2021-03-27 22:56 | CCD ---
Author Author [facility] Organization [facility] Address Unknown Phone Unavailable Care Team Providers Care Livestock Auctioneer Name Role Phone Lakeshia Kemp Unavailable PROBLEMS Type Condition ICD9-CM Code [id number] Code Onset Dates Condition S tatus W/U Status Risk SNOMED Code Notes Problem Obesity, unspecified E66.9 Active confirmed 191022364 Problem Body mass index [BMI]40.0-44.9, adult Z68.41 Ac tive confirmed 525614769 Problem Bipolar affective disorder, remission status unspecified F31.9 Active confirmed 66488695 Problem Borderline personality disorder F60.3 Active confi rmed [id number] ALLERGIES Allergen (clinical drug ingredient) Drug/Non Drug Allergy do cumented on EMR Reaction Allergy Type Onset Date Status codeine Codeine Sulfate(NDC Code:[address]-24) itchy, h ot upset,dizzy Drug Allergy Active Codeine Phosphate(NDC Code:[address]-64) Nausea/Vomiting Drug Allergy Active aspirin Aspirin(NDC Code:[address]-91) headache Drug Allergy Active ENCOUNTERS from 1982 to 2021-01-12 Encounter Location Date Provider Diagnosis [facility] [place] [address] [phone] [place] [address] Nov, Lakeshia Kemp Body mass index [BMI ]40.0-44.9, adult Z68.41 ; Obesity, unspecified E66.9 and Former smoker Z87.891 IMMUNIZATIONS Vaccine Route Administration Date Status Meningococcal 0.5mL Menveo Groups A,C,Y & W-135 IM Intramuscular Jun 13, 2019 Administered Pneumococcal Adult 0.5mL Pneumovax 23 IM Intramuscular Sept 13, 2019 Administered Influenza 6mo & up Fluzone IM Intramuscular Mar 14, 2018 Admi nistered SOCIAL HISTORY Tobacco Use: Social History Observation Description Date Details (start date - stop date) Current Smoker Sex Assigned At : Social History Observation Description Sex Assigned At Unknown Education: Question Answer Notes Level of Education: Finished High School Audit Question Answer Notes Total Score: 0 Interpretation: Alcohol Education Language: Question Answer Notes Languages spoken: Bulgarian Yazidi: Question Answer Notes Yazidi 08 Gnosticism Sexual Hx: Question Answer Notes Had sex [...] REASON FOR REFERRAL No Information VITAL SIGNS Weight 233.2 lbs Nov, Height 62 in Nov, BMI 42.65 kg/m2 Nov, Heart Rate 87 /min Nov, Respiratory Rate 18 /min Nov, Temperature 97.4 degrees Fahrenheit Nov, Oximetry 97 Nov, Blood pressure systolic 118 mm Hg Nov, Blood pressure diastolic 78 mm Hg Nov, MEDICATIONS Medication SIG (Take, Route, Frequency, Duration) Notes Start Da te End Date Status Doxycycline Hyclate 100 MG 1 capsule Orally bid for 7 day(s) Oct, Not-Taking Flonase Allergy Relief 50 MCG/ACT 2 sprays in each nos tril Nasally bid for 30 day(s) Oct, Not-Taking Multi For Her - as directed Orally A ctive PROCEDURES No Information RESULTS No Results REASON FOR VISIT 6 week follow up MEDICAL (GENERAL) HISTORY Type Description Date Medical History Bipolar Disorder with Depression/Anxiety /Borderline/PTSD Medical History Anemia and Endometriosis (s/p EUSEBIA with Mckay AGUILAR 2011) Medical History Obesity Medical History Fibrocystic Dreast Disease BL Medical History Carpal Tunnel (left) Medical History Carpal tunnel syndrome on left Surgical History hysterectomy Surgical History laparoscopy-2000/2005/2006 Surgical History c section-2001 Surgical History laparoscopy Surgical History C section Surgical History hysterectomy 2010 Surgical History oophorectomy-2011 Surgical History oophrectomy 2011 Hospitalization History hysterectomy 2011 Goals Section No Information Health Concerns No Information MEDICAL EQUIPMENT No Information MENTAL STATUS No Information FUNCTIONAL STATUS No Information ASSESSMENTS Encounter Date Diagnosis Assessment Notes Treatment Notes Treatm ent Clinical Notes Nov, Body mass index [BMI]40.0-44.9, adult (ICD-10 - Z68.41) Patient plans on pursuing gastric bypass surgery. She has an appointment set up and understands the general process involved. Nov, Obesity, unspecified (ICD-10 - E66.9) Nov, Former smoker (ICD-10 - Z87.891) Patient congratulated on her efforts in smoking cessation and encouraged to continue to keep this up. PLAN OF TREATMENT Treatment Notes Assessment Notes Clinical Notes Body mass index [BMI]40.0-44.9, adult Nick epperson plans on pursuing gastric bypass surgery. She has an appointment set up and understands the general process involved. Former smoker Patient congratulate d on her efforts in smoking cessation and encouraged to continue to keep this up. Next Appt Details 6 Months Reason:follow up Follow Up:6 Monthsfollow up Insurance Providers Payer Name Payer Address Payer Phone Insured Name Patient Relati onship to Insured Coverage Start Date Coverage End Date [facility] [employer] [employer] [address] [facility] [phone] DAI MCKEON self
--- OUTSIDE RECORDS SUMMARY | 2021-03-27 22:56 | CCD | Continuity of Care Document ---
Author Author Jordyn GUZMAN [facility] Organization Unknown Address [address] [place] [address], [address] [place] [address] Phone [phone] Care Team Providers Care Sheet Metal Helper Name Role Phone Lakeshia Kemp D.O. AUTM [phone] Ronal Reddy M.D. AUTM [phone] Problems Active Problems Provider Date Bilateral chronic [...] lb BMI (Body Mass Index) 42.2 kg/m2 [place] Body Weight 110 lb Weight 104.782 kg BSA (Body Surface Area) 2.03 m2 06/30/2020 10:15am BP Systolic 140 mmHg BP Diastolic 80 mmHg Height 62 inches 5'2" Weight 208.00 lb BMI (Body Mass Index) 38.0 kg/m2 [place] Body Weight 110 lb Weight 94.349 kg [...] German Edmond M.D. K21.9 GERD Scheduled 02/23 [facility] [address] [facility], [place] [address] [phone]
--- OUTSIDE RECORDS SUMMARY | 2021-03-27 22:56 | CCD ---
Author Author [facility] Organization [facility] Address Unknown Phone Unavailable Care Team Providers Care Tomato Grader Name Role Phone Hernandez, Ann 3D DESIGNER Unavailable Unavailable Hernandez, Ann 3D DESIGNER Unavailable Unavailable Hernandez, Ann 3D DESIGNER Unavailable Unavailable Hernandez, Ann 3D DESIGNER Unavailable Unavailable Hernandez, Ann 3D DESIGNER Unavailable Unavailable Hernandez, Ann 3D DESIGNER Unavailable Unavailable Hernandez, Ann 3D DESIGNER Unavailable Unavailable Hernandez, Ann 3D DESIGNER Unavailable Unavailable Hernandez, Ann 3D DESIGNER Unavailable Unavailable Hernandez, Ann 3D DESIGNER Unavailable Unavailable Hernandez, Ann 3D DESIGNER Unavailable Unavailable Hernandez, Ann 3D DESIGNER Unavailable Unavailable Hernandez, Ann 3D DESIGNER Unavailable Unavailable Mckay KAMINSKI MD Unavailable Unavailable Mckay KAMINSKI MD Unavailable Unavailable Mckay KAMINSKI MD Unavailable Unavailable Mckay KAMINSKI MD Unavailable Unavailable Mckay KAMINSKI MD Unavailable Unavailable Mckay KAMINSKI MD Unavailable Unavailable Mckay KAMINSKI MD Unavailable Unavailable Mckay KAMINSKI MD Unavailable Unavailable Mckay KAMINSKI MD Unavailable Unavailable Mckay KAMINSKI MD Unavailable Unavailable Mckay KAMINSKI MD Unavailable Unavailable Mckay KAMINSKI MD Unavailable Unavailable Mckay KAMINSKI MD Unavailable Unavailable Mckay KAMINSKI MD Unavailable Unavailable Mckay KAMINSKI MD Unavailable Unavailable Mckay KAMINSKI MD Unavailable Unavailable Mckay KAMINSKI MD Unavailable Unavailable Mckay KAMINSKI MD Unavailable Unavailable Mckay KAMINSKI MD Unavailable Unavailable Mckay KAMINSKI MD Unavailable Unavailable Mckay KAMINSKI MD Unavailable Unavailable Mckay KAMINSKI MD Unavailable Unavailable Mckay KAMINSKI MD Unavailable Unavailable Mckay KAMINSKI MD Unavailable Unavailable Mckay KAMINSKI MD Unavailable Unavailable Mckay KAMINSKI MD Unavailable Unavailable Mckay KAMINSKI MD Unavailable Unavailable Mckay KAMINSKI MD Unavailable Unavailable Mckay KAMINSKI MD Unavailable Unavailable Mckay KAMINSKI MD Unavailable Unavailable Mckay KAMINSKI MD Unavailable Unavailable Mckay KAMINSKI MD Unavailable Unavailable Mckay KAMINSKI MD Unavailable Unavailable Mckay KAMINSKI MD Unavailable Unavailable Mckay KAMINSKI MD Unavailable Unavailable Desmond Zafar MD Unavailable [...] Desmond Zafar MD Unavailable Unavailable Zafar, Desmond Whiet MD Unavailable Unavailable Zafar, D Christopher MD Unavailable Unavailable Zafar, D Christopher MD Unavailable Unavailable Zafar, D Christopher MD Unavailable Unavailable Zafar, D Christopher MD Unavailable Unavailable Zafar, D Christopher MD Unavailable Unavailable Zafar, D Christopher MD Unavailable Unavailable Zafar, D Christophre MD Unavailable Unavailable Zafar, D Christopher MD [...] Unavailable Zafar, Desmond White MD Unavailable Unavailable Zfaar, D Christopher MD Unavailable Unavailable Zafar, D Christopher MD Unavailable Unavailable Zafar, D Christopher MD Unavailable Unavailable Giraldo, Haley MHC Unavailable Unavailable Giraldo, Haley MHC Unavailable Unavailable RING, K ENZO PA Unavailable Unavailable RING, K ENZO PA Unavailable Unavailable RING, K ENZO PA Unavailable Unavailable RING, K ENZO PA Unavailable Unavailable RING, K ENZO PA Unavailable Unavailable RING, K ENZO PA Unavailable Unavailable RING, K ENZO PA Unavailable Unavailable RING, K ENZO PA Unavailable Unavailable RING, K ENZO PA Unavailable Unavailable RING, K ENZO PA Unavailable Unavailable RING, K ENZO PA Unavailable Unavailable RING, K ENZO PA Unavailable Unavailable RING, K ENZO PA Unavailable Unavailable RING, K ENZO PA Unavailable Unavailable RING, K ENZO PA Unavailable Unavailable RING, K ENZO PA Unavailable Unavailable RING, K ENZO PA Unavailable Unavailable RING, K ENZO PA Unavailable Unavailable RING, K ENZO PA Unavailable Unavailable RING, K ENZO PA Unavailable Unavailable RING, K ENZO PA Unavailable Unavailable Re-disclosure Warning The records that [...] is protected by Article 27-F of the [facility] Public Health law. If you continue you may have access to information: Regarding HIV / AIDS; Provided by facilities licensed or operated by the [facility] Office of Mental Health; or Provided by the [facility] Office for People With Developmental Disabilities. If such information is present, then the following [facility] mandated warning applies: This information has been [...] NOT sufficient authorization for further disc losure. Family History Family Member Name Family Member Gender Family Member Status Date o f Status Description Data Source(s) Unknown Unknown Problem [facility]ENT ([facility], ) Unknown Unknown Problem MED[facility] ([facility], ) Unknown Unknown Problem MEDENT ([facility], ) Encounters Encounter Providers Location Date Indications Data Source(s ) Outpatient Attender: ENZO Atkinson [facility] 02/26/2021 09:20:00 AM EDT [facility] ([facility]) [place] [address] [address] 12/13/2020 12:00:00 AM EDT eCW1 ([facility]) Outpatient Attender: Ann juares 11/23/2020 06:15:00 PM EDT MED[facility] ([facility]) [place] [address] [address] 11/01/2020 12:00:00 AM EDT eCW1 ([facility]) [place] [address] [address] 11/01/2020 12:00:00 AM EDT eCW1 ([facility]) Unknown [address] [facility] [place] [address] 11/01/2020 12:00:00 AM EDT eCW1 ([facility]) Outpatient Attender: ENZO Scherer 10/27/2020 05:00:00 PM EDT MED[facility] ([facility]) [place] [address] [address] 09/03/2020 12:00:00 AM EDT eCW1 ([facility]) Outpatient [address] [facility] [place] [address] 06/01/2020 12:00:00 AM EST [facility]1 ([facility]) [place] [address] [address] 05/10/2020 12:00:00 AM EST [facility]CW1 [facility]) [place] [address] [address] 05/10/2020 12:00:00 AM EST [facility]CW1 ([facility]) [place] [address] [address] 04/21/2020 12:00:00 AM EST eCW1 ([facility]) Outpatient Attender: TOMMY Carias/Sunni/Silvio/ Eneida 04/06/2020 08:30:00 AM EST MEDENT ([facility]) [place] [address] [address] 04/05/2020 12:00:00 AM EST eCW1 ([facility]) Outpatient Attender: Haley Giraldo MHCConsultant: Christopher Erazo rn, MD 03/17/2020 04:56:00 PM EDT - 03/17/2020 04:56:[address] [facility] [place] [address] [address] 03/10/2020 12:00:00 AM EDT eCW1 ([facility]) [place] [address] [address] 03/09/2020 12:00:00 AM EDT eCW1 ([facility]) [place] [address] [address] 03/08/2020 12:00:00 AM EDT eCW1 ([facility]) [place]patient [address] [address] 03/05/2020 12:00:00 AM EDT eCW1 ([facility]) Outpatient Attender: Haley Giraldo MHCConsultant: Christopher Erazo rn, MD 02/04/2020 04:01:00 PM EDT - 02/04/2020 04:01:[address] [facility] Outpatient Attender: Haley Giraldo MHCConsultant: Christopher Erazo rn, MD 12/23/2019 10:01:00 AM EDT - 12/23/2019 10:01:[address] [facility] Medications Medication Brand Name Start Date Product Form Dose Route Admi nistrative Instructions Pharmacy Instructions Status Indications Reaction Description Data Source(s) No Active Medications 02/26/2021 12:00:00 AM EDT completed MEDENT ([facility]) levocetirizine dihydrochloride 5 MG Oral Tablet [Xyzal] Xyza l Allergy 24HR 02/26/2021 12:00:00 AM EDT ORAL active MEDENT ([facility]) 200 ACTUAT Albuterol 0.09 MG/ACTUAT Metered Dose Inhaler [Pr oAir] Proair HFA 02/26/2021 12:00:00 AM EDT ORAL active MEDENT ([facility]) Amoxicillin 875 MG / Clavulanate 125 MG Oral Tablet Am oxicillin/Clavulanate Potassium 02/26/2021 12:00:00 AM EDT ORAL active MEDENT ([facility]) Flonase Allergy Relief 50 MCG/ACT Flonase Allergy Relief 50 MCG/ACT 11/01/2020 12:00:00 AM EDT 2.0 {sprays_in_each_nostril} act beverly Flonase Allergy Relief 50 MCG/ACT eCW1 ([facility]) doxycycline hyclate 100 MG Oral Capsule Doxycycline Hy clate 100 MG Doxycycline Hyclate 100 MG 11/01/2020 12:00:00 AM EDT 1.0 {capsule} suspended Doxycycline Hyclate 100 MG eCW1 ([facility]) Flonase Allergy Relief 50 MCG/ACT Flonase Allergy Relief 50 MCG/ACT 11/01/2020 12:00:00 AM EDT 2.0 {sprays_in_each_nostril} act beverly Flonase Allergy Relief 50 MCG/ACT eCW1 ([facility]) doxycycline hyclate 100 MG Oral Capsule Doxycycline Hy clate 100 MG Doxycycline Hyclate 100 MG 11/01/2020 12:00:00 AM EDT 1.0 {capsule} active Doxycycline Hyclate 100 MG eCW1 ([facility]) doxycycline hyclate 100 MG Oral Capsule Doxycycline Hy clate 100 MG Doxycycline Hyclate 100 MG 11/01/2020 12:00:00 AM EDT 1.0 {capsule} active Doxycycline Hyclate 100 MG eCW1 ([facility]) doxycycline hyclate 100 MG Oral Capsule Doxycycline Hy clate 100 MG Doxycycline Hyclate 100 MG 11/01/2020 12:00:00 AM EDT 1.0 {capsule} active Doxycycline Hyclate 100 MG eCW1 ([facility]) Flonase Allergy Relief 50 MCG/ACT Flonase Allergy Relief 50 MCG/ACT 11/01/2020 12:00:00 AM EDT 2.0 {sprays_in_each_nostril} beth pended Flonase Allergy Relief 50 MCG/ACT eCW1 ([facility]) Flonase Allergy Relief 50 MCG/ACT Flonase Allergy Relief 50 MCG/ACT 11/01/2020 12:00:00 AM EDT 2.0 {sprays_in_each_nostril} act beverly Flonase Allergy Relief 50 MCG/ACT eCW1 ([facility]) 200 ACTUAT Albuterol 0.09 MG/ACTUAT Metered Dose Inhaler [Pr oAir] Proair HFA 10/27/2020 12:00:00 AM EDT ORAL completed MEDENT ([facility]) Fluticasone Propionate Fluticasone Propionate 10/27/2020 12:00:00 AM E DT completed MEDENT ([facility]) Prednisone 20 MG Oral Tablet Prednisone 10/27/2020 12:00:00 AM EDT ORAL completed MEDENT ([facility]) No Active Medications 10/27/2020 12:00:00 AM EDT completed MEDENT ([facility]) Phentermine Hydrochloride 37.5 MG Oral Tablet Phenterm ine HCl 37.5 MG Phentermine HCl 37.5 MG 03/10/2020 12:00:00 AM EDT 1.0 {tablet} active Phentermine HCl 37.5 MG eCW1 ([facility]) Phentermine Hydrochloride 15 MG Oral Capsule Phentermi ne HCl 15 MG Phentermine HCl 15 MG 03/10/2020 12:00:00 AM EDT 1.0 {capsule} a ctive Phentermine HCl 15 MG eCW1 ([facility]) Phentermine Hydrochloride 37.5 MG Oral Tablet Phenterm ine HCl 37.5 MG Phentermine HCl 37.5 MG 03/10/2020 12:00:00 AM EDT 1.0 {tablet} active Phentermine HCl 37.5 MG eCW1 ([facility]) Phentermine Hydrochloride 37.5 MG Oral Tablet Phenterm ine HCl 37.5 MG Phentermine HCl 37.5 MG 03/10/2020 12:00:00 AM EDT 1.0 {tablet} active Phentermine HCl 37.5 MG eCW1 ([facility]) Phentermine Hydrochloride 37.5 MG Oral Tablet Phenterm ine HCl 37.5 MG Phentermine HCl 37.5 MG 03/10/2020 12:00:00 AM EDT 1.0 {tablet} active Phentermine HCl 37.5 MG eCW1 ([facility]) Phentermine Hydrochloride 15 MG Oral Capsule Phentermi ne HCl 15 MG Phentermine HCl 15 MG 03/10/2020 12:00:00 AM EDT 1.0 {capsule} a ctive Phentermine HCl 15 MG eCW1 ([facility]) Phentermine Hydrochloride 15 MG Oral Capsule Phentermi ne HCl 15 MG Phentermine HCl 15 MG 03/10/2020 12:00:00 AM EDT 1.0 {capsule} a ctive Phentermine HCl 15 MG eCW1 ([facility]) Phentermine Hydrochloride 15 MG Oral Capsule Phentermi ne HCl 15 MG Phentermine HCl 15 MG 03/10/2020 12:00:00 AM EDT 1.0 {capsule} a ctive Phentermine HCl 15 MG eCW1 ([facility]) Phentermine Hydrochloride 15 MG Oral Capsule Phentermi ne HCl 15 MG Phentermine HCl 15 MG 03/10/2020 12:00:00 AM EDT 1.0 {capsule} a ctive Phentermine HCl 15 MG eCW1 ([facility]) Phentermine Hydrochloride 37.5 MG Oral Tablet Phenterm ine HCl 37.5 MG Phentermine HCl 37.5 MG 03/10/2020 12:00:00 AM EDT 1.0 {tablet} active Phentermine HCl 37.5 MG eCW1 ([facility]) Phentermine Hydrochloride 37.5 MG Oral Tablet Phenterm ine HCl 37.5 MG Phentermine HCl 37.5 MG 03/10/2020 12:00:00 AM EDT 1.0 {tablet} active Phentermine HCl 37.5 MG eCW1 ([facility]) Phentermine Hydrochloride 37.5 MG Oral Tablet Phenterm ine HCl 37.5 MG Phentermine HCl 37.5 MG 03/10/2020 12:00:00 AM EDT 1.0 {tablet} active Phentermine HCl 37.5 MG eCW1 ([facility]) Phentermine Hydrochloride 15 MG Oral Capsule Phentermi ne HCl 15 MG Phentermine HCl 15 MG 03/10/2020 12:00:00 AM EDT 1.0 {capsule} a ctive Phentermine HCl 15 MG eCW1 ([facility]) Phentermine Hydrochloride 15 MG Oral Capsule Phentermi ne HCl 15 MG Phentermine HCl 15 MG 03/10/2020 12:00:00 AM EDT 1.0 {capsule} a ctive Phentermine HCl 15 MG eCW1 ([facility]) 24 HR Phentermine 3.75 MG / topiramate 2 3 MG Extended Release Oral Capsule [Qsymia] Qsymia 3.75-23 MG Qsymia 3.75-23 MG 03/05/2020 12:00:00 AM EDT active Qsymia 3.75-23 MG eCW1 ([facility]) 24 HR Phentermine 3.75 MG / topiramate 2 3 MG Extended Release Oral Capsule [Qsymia] Qsymia 3.75-23 MG Qsymia 3.75-23 MG 03/05/2020 12:00:00 AM EDT active Qsymia 3.75-23 MG eCW1 ([facility]) 24 HR Phentermine 3.75 MG / topiramate 2 3 MG Extended Release Oral Capsule [Qsymia] Qsymia 3.75-23 MG Qsymia 3.75-23 MG 03/05/2020 12:00:00 AM EDT active Qsymia 3.75-23 MG eCW1 ([facility]) meloxicam 15 MG Oral Tablet Meloxicam 15 MG Meloxicam 15 MG 03/05/2020 12:00:00 AM EDT 1.0 {tablet} active Meloxicam 1 5 MG eCW1 ([facility]) 24 HR Phentermine 3.75 MG / topiramate 2 3 MG Extended Release Oral Capsule [Qsymia] Qsymia 3.75-23 MG Qsymia 3.75-23 MG 03/05/2020 12:00:00 AM EDT active Qsymia 3.75-23 MG eCW1 ([facility]) meloxicam 15 MG Oral Tablet Meloxicam 15 MG Meloxicam 15 MG 03/05/2020 12:00:00 AM EDT 1.0 {tablet} active Meloxicam 1 5 MG eCW1 ([facility]) 24 HR Phentermine 3.75 MG / topiramate 2 3 MG Extended Release Oral Capsule [Qsymia] Qsymia 3.75-23 MG Qsymia 3.75-23 MG 03/05/2020 12:00:00 AM EDT active Qsymia 3.75-23 MG eCW1 ([facility]) meloxicam 15 MG Oral Tablet Meloxicam 15 MG Meloxicam 15 MG 03/05/2020 12:00:00 AM EDT 1.0 {tablet} active Meloxicam 1 5 MG eCW1 ([facility]) meloxicam 15 MG Oral Tablet Meloxicam 15 MG Meloxicam 15 MG 03/05/2020 12:00:00 AM EDT 1.0 {tablet} active Meloxicam 1 5 MG eCW1 ([facility]) meloxicam 15 MG Oral Tablet Meloxicam 15 MG Meloxicam 15 MG 03/05/2020 12:00:00 AM EDT 1.0 {tablet} active Meloxicam 1 5 MG eCW1 ([facility]) meloxicam 15 MG Oral Tablet Meloxicam 15 MG Meloxicam 15 MG 03/05/2020 12:00:00 AM EDT 1.0 {tablet} active Meloxicam 1 5 MG eCW1 ([facility]) 24 HR Phentermine 3.75 MG / topiramate 2 3 MG Extended Release Oral Capsule [Qsymia] Qsymia 3.75-23 MG Qsymia 3.75-23 MG 03/05/2020 12:00:00 AM EDT active Qsymia 3.75-23 MG eCW1 ([facility]) meloxicam 15 MG Oral Tablet Meloxicam 15 MG Meloxicam 15 MG 03/05/2020 12:00:00 AM EDT 1.0 {tablet} active Meloxicam 1 5 MG eCW1 ([facility]) 24 HR Phentermine 3.75 MG / topiramate 2 3 MG Extended Release Oral Capsule [Qsymia] Qsymia 3.75-23 MG Qsymia 3.75-23 MG 03/05/2020 12:00:00 AM EDT active Qsymia 3.75-23 MG eCW1 ([facility]) 24 HR Phentermine 3.75 MG / topiramate 2 3 MG Extended Release Oral Capsule [Qsymia] Qsymia 3.75-23 MG Qsymia 3.75-23 MG 03/05/2020 12:00:00 AM EDT active Qsymia 3.75-23 MG eCW1 ([facility]) meloxicam 15 MG Oral Tablet Meloxicam 15 MG Meloxicam 15 MG 03/05/2020 12:00:00 AM EDT 1.0 {tablet} active Meloxicam 1 5 MG eCW1 ([facility]) Insurance Providers Payer name Policy type / Coverage type Policy ID Covered alliance party ID Covered alliance party's relationship to andrews Policy Andrews Plan Information MEDICAID [id number] SP [id number] Medicaid S [id number] S [id number] Managed Care - Community Plan [facility] P [id number] S [id number] Managed Care Community Plan [facility] P [id number] S [id number] Medicaid S [id number] S [id number] Medicaid S [id number] S [id number] Managed Care - Community Plan [facility] P [id number] S [id number] Managed Care - Community Plan [facility] P [id number] S [id number] Medicaid S [id number] S [id number] [facility] [place] [id number] 18 [id number] [facility] [id number] SP [id number] Managed Care - [facility] Community Plan P [id number] S [id number] Managed Care - Community Plan [facility] P [id number] S [id number] Medicaid S [id number] S [id number] [place] [id number] 18 [id number] [facility] COMMUNITY [place] [id number] 18 [id number] ANS-Medicaid [id number] ANS-Medicaid [id number] [facility] Health Maintenance Organization (HMO) [id number] Self [id number] [facility] [place] [id number] 18 [id number] [facility] [id number] SP [id number] [facility](MCAID) O [id number] S [id number] [employer] XIX -HMO [id number] 18 [id number] [facility]/MCR Health Maintenance Organization (HMO) [id number] Self [facility] [id number] SP [id number] Managed Care BCBS O [id number] S [id number] BLUE CROSS CLAY PLAN [id number] SP [id number] HMO BLUE [id number] SP [id number] UNHC COMMUNITY PLAN MCDHMO [id number] SP [id number] UNHC COMMUNITY PLAN MCDHMO [id number] SP [id number] [facility] COMMUNITY PLAN [place] [id number] 18 [id number] [facility](MCAID) O [id number] S [id number] [place] [id number] 18 [id number] ANSI-Medicaid [id number] ANSI-Medicaid [id number] ANSI-Medicaid [id number] ANSI-Medicaid [id number] ANSI-Medicaid [id number] ANSI-Medicaid [id number] ANSI-Medicaid [id number] ANSI-Medicaid [id number] ANSI-Medicaid [id number] ANSI-Medicaid [id number] ANSI-Medicaid [id number] Problems, Conditions, and Diagnoses Code Display Name Description Problem Type Effective Dates Data Source(s) F603 Borderline personality disorder Borderline personality disorder Diagnosis 02/04/2020 04:01:[address] [facility] 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 Other specif ied depressive episodes Diagnosis 02/04/2020 04:01:[address] [facility] Z68.41 [id number] Body mass index [BMI]40.0-44.9, adult Pro blem 11/01/2020 12:00:00 AM EDT eCW1 ([facility]) E66.01 [id number] Morbid (severe) obesity due to excess c alories Problem 11/01/2020 12:00:00 AM EDT eCW1 ([facility]) E66.9 Obesity Obesity, unspecified Problem 03/05/2020 12:0 0:00 AM EDT eCW1 ([facility]) Surgeries/Procedures Procedure Description Date Indications Data Source(s) OFFICE OUTPATIENT VISIT 15 MINUTES 02/26/2021 12:00:00 AM EDT MEDENT ([facility]) OFFICE OUTPATIENT VISIT 15 MINUTES 11/23/2020 12:00:00 AM EDT MEDENT ([facility], [facility]) OFFICE OUTPATIENT VISIT 15 MINUTES 10/27/2020 12:00:00 AM EDT MEDENT ([facility], [facility]) Excision Tumor Soft Tissue Upper Arm/Elbow Subcutaneous 3 CM Or > 06/11/2020 12:00:00 AM EST MEDENT ([facility], ) Results ID Date Data Source [id number] 03/18/2021 03:35:00 PM EDT [facility] Name Value Range Interpretation Code Description Data Tiffany rce(s) Supporting Document(s) SARS COVID ANTIGEN NEGATIVE [facility] This lab was ordered by STEPHANIE mars nd reported by [facility]. ID Date Data Source [id number] 02/26/2021 12:00:00 AM EDT [facility] Name Value Range Interpretation Code Description Data Tiffany rce(s) Supporting Document(s) SARS-CoV2 Rapid Antigen Negative [facility] This lab was ordered by [facility] and reported by [facility]. ID Date Data Source [id number] 11/23/2020 12:00:00 AM EDT [facility] Name Value Range Interpretation Code Description Data Tiffany rce(s) Supporting Document(s) SARS-CoV2 Rapid Antigen Negative [facility] This lab was reported by [facility]. ID Date Data Source [id number] 06/11/2020 10:50:00 AM EST MEDENT ([facility], ) Name Value Range Interpretation Code Description Data Tiffany rce(s) Supporting Document(s) Surgical pathology study Laboratory test result MEDENT ([facility], ) FINAL DIAGNOSIS Lipoma, left upper arm, excision: Lipoma. 06/14/2020 - 1043 CLINICAL DIAGNOSIS Left upper arm lipoma 06/11/2020 - 1511 GROSS DIAGNOSIS Received in formalin labeled "lipoma left upper arm" and consists of a well circumscribed yellow-wilson fibroadipose tissue fragment measuring 5.5 x 5.5 x 2.5 cm. Serial sections reveals unremarkable yellow-wilson lobulated fibroadipose tissue with no grossly apparent solid lesions or necrosis. Rn Private Duty sections submitted in three blocks. -SV 06/11/2020 - [id number] Signed NALINI GIRALDO MD 06/14/2020 1044 ID Date Data Source [id number] 06/06/2020 10:15:00 AM EST [facility] Name Value Range Interpretation Code Description Data Tiffany rce(s) Supporting Document(s) SARS coronavirus 2 RNA Not Detected [facility] This lab was ordered by [facility] and reported by [facility]. Procedure Social History Code Duration Value Status Description Data Source(s ) Smoking 12/13/2020 12:00:00 AM EDT Current Smoker completed Curre nt Smoker eCW1 (Formerly [facility]) Smoking 11/01/2020 12:00:00 AM EDT Current Smoker completed Curre nt Smoker eCW1 (Formerly [facility]) Smoking 11/01/2020 12:00:00 AM EDT Current Smoker completed Curre nt Smoker eCW1 (Formerly [facility]) Smoking 11/01/2020 12:00:00 AM EDT Current Smoker completed Curre nt Smoker eCW1 (Formerly [facility]) Smoking 09/02/2020 12:00:00 AM EDT Current Smoker completed Curre nt Smoker eCW1 (Formerly [facility]) Smoking 06/01/2020 12:00:00 AM EST Current Smoker completed Curre nt Smoker eCW1 (Formerly [facility]) Smoking 03/05/2020 12:00:00 AM EDT Current Smoker completed Curre nt Smoker eCW1 (Formerly [facility]) Smoking 03/05/2020 12:00:00 AM EDT Current Smoker completed Curre nt Smoker eCW1 (Formerly [facility]) Smoking 03/05/2020 12:00:00 AM EDT Current Smoker completed Curre nt Smoker eCW1 (Formerly [facility]) Smoking 03/05/2020 12:00:00 AM EDT Current Smoker completed Curre nt Smoker eCW1 (Formerly [facility]) Smoking 03/05/2020 12:00:00 AM EDT Current Smoker completed Curre nt Smoker eCW1 (Formerly [facility]) Smoking 03/05/2020 12:00:00 AM EDT Current Smoker completed Curre nt Smoker eCW1 (Formerly [facility]) Smoking 03/05/2020 12:00:00 AM EDT Current Smoker completed Curre nt Smoker eCW1 (Formerly [facility]) Smoking 03/05/2020 12:00:00 AM EDT Current Smoker completed Curre nt Smoker eCW1 (Formerly [facility]) Vital Signs ID Date Data Source UNK Name Value Range Interpretation Code Description Data Source(s) Systolic blood pressure 117 mm[Hg] 117 mm[Hg] M EDENT ([facility], [facility]) Heart rate 65 /min 65 /min MEDENT ([facility], [facility]) Respiratory rate 18 /min 18 /min [facility] Oxygen saturation in Arterial blood by Pulse oximetry 97 % 97 % [facility]) Body temperature 98.0 [degF] 98.0 [degF] MEDENT ([facility]) Body weight 231.00 [lb_av] 231.00 [lb_av] MEDEN T ([facility]) Body height 62 [in_i] 62 [in_i] [facility] ([facility]) 5'2" Body mass index (BMI) [Ratio] 42.2 kg/m2 42.2 k g/m2 [facility] ([facility]) Diastolic blood pressure 80 mm[Hg] 80 mm[Hg] [facility] ([facility]) Systolic blood pressure 124 mm[Hg] 124 mm[Hg] M EDENT ([facility], ) Diastolic blood pressure 84 mm[Hg] 84 mm[Hg] MEDENT ([facility], ) Body height 62 [in_i] 62 [in_i] [facility] ([facility], ) 5'2" Body weight 231.00 [lb_av] 231.00 [lb_av] MEDEN T ([facility]) Body mass index (BMI) [Ratio] 42.2 kg/m2 42.2 k g/m2 [facility] ([facility], ) [place] body weight 110 [lb_av] 110 [lb_av] MEDEN T ([facility]) Body weight 104.782 kg 104.782 kg MEDENT ([facility]) Body surface area Derived from formula 2.03 m2 2.03 m2 [facility]) Body weight 233.2 [lb_av] 233.2 [lb_av] eCW1 ([facility]) Body height 62 [in_i] 62 [in_i] eCW1 ([facility]) Body mass index (BMI) [Ratio] 42.65 kg/m2 42.65 kg/m2 eCW1 (Formerly [facility]) Heart rate 87 /min 87 /min eCW1 ([facility] hospital) Respiratory rate 18 /min 18 /min eCW1 ([facility]) Body temperature 97.4 [degF] 97.4 [degF] eCW1 ( Formerly [facility]) Systolic blood pressure 118 mm[Hg] 118 mm[Hg] e CW1 ([facility]ly [facility]) Diastolic blood pressure 78 mm[Hg] 78 mm[Hg] eCW1 ([facility]ly [facility]) Systolic blood pressure 124 mm[Hg] 124 mm[Hg] M EDENT ([facility], [facility]) Diastolic blood pressure 90 mm[Hg] 90 mm[Hg] MEDENT ([facility], [facility]) Heart rate 71 /min 71 /min MEDENT ([facility], [facility]) Respiratory rate 19 /min 19 /min MEDENT ( [facility], [facility]) Oxygen saturation in Arterial blood by Pulse oximetry 95 % 95 % [facility] ([facility], [facility]) Body temperature 99.1 [degF] 99.1 [degF] MEDENT ([facility], [facility]) Body weight 225.00 [lb_av] 225.00 [lb_av] MEDEN T ([facility], [facility]) Body height 62 [in_i] 62 [in_i] MEDENT ([facility], [facility]) 5'2" Body mass index (BMI) [Ratio] 41.1 kg/m2 41.1 k g/m2 MEDENT ([facility], [facility]) Body weight 225.0 [lb_av] 225.0 [lb_av] eCW1 ([facility]) Body height 62 [in_i] 62 [in_i] eCW1 ([facility]) Body mass index (BMI) [Ratio] 41.15 kg/m2 41.15 kg/m2 eCW1 ([facility]ly [facility]) Heart rate 83 /min 83 /min eCW1 (Critical access hospital) Respiratory rate 18 /min 18 /min eCW1 ([facility]) Body temperature 97.5 [degF] 97.5 [degF] eCW1 ( [facility]ly [facility]) Systolic blood pressure 128 mm[Hg] 128 mm[Hg] e CW1 ([facility]ly [facility]) Diastolic blood pressure 78 mm[Hg] 78 mm[Hg] eCW1 ([facility]) Systolic blood pressure 115 mm[Hg] 115 mm[Hg] M EDENT ([facility], [facility]) Diastolic blood pressure 81 mm[Hg] 81 mm[Hg] MEDENT ([facility], [facility]) Heart rate 83 /min 83 /min MEDENT ([facility], [facility]) Respiratory rate 16 /min 16 /min MEDENT ( [facility], [facility]) Oxygen saturation in Arterial blood by Pulse oximetry 98 % 98 % MEDENT ([facility], [facility]) Body temperature 98.0 [degF] 98.0 [degF] MEDENT ([facility], [facility]) Body weight 220.00 [lb_av] 220.00 [lb_av] MEDEN T ([facility], [facility]) Body height 62 [in_i] 62 [in_i] MEDENT ([facility], [facility]) 5'2" Body mass index (BMI) [Ratio] 40.2 kg/m2 40.2 k g/m2 MEDENT ([facility], [facility]) Body height 62 [in_i] 62 [in_i] MEDENT ([facility], ) 5'2" Body weight 208.00 [lb_av] 208.00 [lb_av] MEDEN T ([facility]) Body mass index (BMI) [Ratio] 38.0 kg/m2 38.0 k g/m2 MEDENT ([facility]) [place] body weight 110 [lb_av] 110 [lb_av] MEDEN T ([facility]) Body weight 94.349 kg 94.349 kg MEDENT ([facility]) Body surface area Derived from formula 1.94 m2 1.94 m2 [facility] ([facility]) Systolic blood pressure 140 mm[Hg] 140 mm[Hg] EDENT ([facility]) Diastolic blood pressure 80 mm[Hg] 80 mm[Hg] MEDENT ([facility]) Body height 62 [in_i] 62 [in_i] MEDENT ([facility]) 5'2" Body weight 208.00 [lb_av] 208.00 [lb_av] MEDEN T ([facility]) Body mass index (BMI) [Ratio] 38.0 kg/m2 38.0 k [facility] [place] body weight 110 [lb_av] 110 [lb_av] MEDEN T ([facility]) Body weight 94.349 kg 94.349 [facility] Body surface area Derived from formula 1.94 m2 1.94 m2 [facility] Body weight 199.4 [lb_av] 199.4 [lb_av] eCW1 ([facility]) Body height 62 [in_i] 62 [in_i] eCW1 ([facility]) Body mass index (BMI) [Ratio] 36.47 kg/m2 36.47 kg/m2 W1 ([facility]ly [facility]) Heart rate 76 /min 76 /min eCW1 (Critical access hospital) Respiratory rate 17 /min 17 /min eCW1 ([facility]) Body temperature 97.4 [degF] 97.4 [degF] eCW1 ( [facility]ly [facility]) Systolic blood pressure 132 mm[Hg] 132 mm[Hg] e CW1 ([facility]ly [facility]) Diastolic blood pressure 78 mm[Hg] 78 mm[Hg] eCW1 ([facility]ly [facility]) [place] body weight 110 [lb_av] 110 [lb_av] MEDEN T ([facility]) Body weight 96.220 kg 96.220 kg [facility] ([facility]) Body surface area Derived from formula 1.96 m2 1.96 m2 [facility] ([facility]) Systolic blood pressure 133 mm[Hg] 133 mm[Hg] M EDENT ([facility]) Diastolic blood pressure 81 mm[Hg] 81 mm[Hg] MEDENT ([facility]) Heart rate 85 /min 85 /min [facility] ([facility]) Body height 62 [in_i] 62 [in_i] MEDENT ([facility]) 5'2" Body weight 212.12 [lb_av] 212.12 [lb_av] MEDEN T ([facility]) Body mass index (BMI) [Ratio] 38.8 kg/m2 38.8 k g/m2 [facility] ([facility]) Body weight 225.4 [lb_av] 225.4 [lb_av] eCW1 ([facility]) Body height 62 [in_i] 62 [in_i] eCW1 ([facility]) Body mass index (BMI) [Ratio] 41.22 kg/m2 41.22 kg/m2 W1 ([facility]ly [facility]) Heart rate 86 /min 86 /min eCW1 (Critical access hospital) Respiratory rate 16 /min 16 /min eCW1 ([facility]) Body temperature 97.2 [degF] 97.2 [degF] eCW1 ( [facility]) Systolic blood pressure 118 mm[Hg] 118 mm[Hg] e CW1 ([facility]) Diastolic blood pressure 74 mm[Hg] 74 mm[Hg] eCW1 ([facility]) Patient Treatment Plan of Care Planned Activity Planned Date Details Description Data Source (s) Flonase Allergy Relief 50 MCG/ACT 11/01/2020 12:00:00 AM EDT eCW1 ([facility]ly [facility]) doxycycline hyclate 100 MG Oral Capsule 11/01/2020 12:00:00 AM EDT eCW1 ([facility]ly [facility]) Flonase Allergy Relief 50 MCG/ACT 11/01/2020 12:00:00 AM EDT eCW1 ([facility]) doxycycline hyclate 100 MG Oral Capsule 11/01/2020 12:00:00 AM EDT eCW1 ([facility]ly [facility]) Flonase Allergy Relief 50 MCG/ACT 11/01/2020 12:00:00 AM EDT eCW1 ([facility]ly [facility]) doxycycline hyclate 100 MG Oral Capsule 11/01/2020 12:00:00 AM EDT eCW1 ([facility]) Phentermine Hydrochloride 37.5 MG Oral Tablet 03/10/2020 12:00:00 A M EDT eCW1 ([facility]) Phentermine Hydrochloride 15 MG Oral Capsule 03/10/2020 12:00:00 AM EDT eCW1 ([facility]) Phentermine Hydrochloride 37.5 MG Oral Tablet 03/10/2020 12:00:00 A M EDT eCW1 ([facility]) Phentermine Hydrochloride 15 MG Oral Capsule 03/10/2020 12:00:00 AM EDT eCW1 ([facility]) Phentermine Hydrochloride 15 MG Oral Capsule 03/10/2020 12:00:00 AM EDT eCW1 ([facility]) Phentermine Hydrochloride 37.5 MG Oral Tablet 03/10/2020 12:00:00 A M EDT eCW1 ([facility]ly [facility]) Phentermine Hydrochloride 15 MG Oral Capsule 03/10/2020 12:00:00 AM EDT eCW1 ([facility]) Phentermine Hydrochloride 37.5 MG Oral Tablet 03/10/2020 12:00:00 A M EDT eCW1 ([facility]) Phentermine Hydrochloride 15 MG Oral Capsule 03/10/2020 12:00:00 AM EDT eCW1 ([facility]) Phentermine Hydrochloride 37.5 MG Oral Tablet 03/10/2020 12:00:00 A M EDT eCW1 ([facility]) Phentermine Hydrochloride 15 MG Oral Capsule 03/10/2020 12:00:00 AM EDT eCW1 ([facility]) Phentermine Hydrochloride 37.5 MG Oral Tablet 03/10/2020 12:00:00 A M EDT eCW1 ([facility]) Phentermine Hydrochloride 15 MG Oral Capsule 03/10/2020 12:00:00 AM EDT eCW1 ([facility]) Phentermine Hydrochloride 37.5 MG Oral Tablet 03/10/2020 12:00:00 A M EDT eCW1 ([facility]) 24 HR Phentermine 3.75 MG / topiramate 2 3 MG Extended Release Oral Capsule [Qsymia] 03/05/2020 12:00:00 AM EDT eCW1 ([facility]) meloxicam 15 MG Oral Tablet 03/05/2020 12:00:00 AM EDT eCW1 ([facility]) 24 HR Phentermine 3.75 MG / topiramate 2 3 MG Extended Release Oral Capsule [Qsymia] 03/05/2020 12:00:00 AM EDT eCW1 ([facility]) meloxicam 15 MG Oral Tablet 03/05/2020 12:00:00 AM EDT eCW1 ([facility]) 24 HR Phentermine 3.75 MG / topiramate 2 3 MG Extended Release Oral Capsule [Qsymia] 03/05/2020 12:00:00 AM EDT eCW1 ([facility]) meloxicam 15 MG Oral Tablet 03/05/2020 12:00:00 AM EDT eCW1 ([facility]) 24 HR Phentermine 3.75 MG / topiramate 2 3 MG Extended Release Oral Capsule [Qsymia] 03/05/2020 12:00:00 AM EDT eCW1 ([facility]) meloxicam 15 MG Oral Tablet 03/05/2020 12:00:00 AM EDT eCW1 ([facility]) 24 HR Phentermine 3.75 MG / topiramate 2 3 MG Extended Release Oral Capsule [Qsymia] 03/05/2020 12:00:00 AM EDT eCW1 ([facility]) meloxicam 15 MG Oral Tablet 03/05/2020 12:00:00 AM EDT eCW1 ([facility]) 24 HR Phentermine 3.75 MG / topiramate 2 3 MG Extended Release Oral Capsule [Qsymia] 03/05/2020 12:00:00 AM EDT eCW1 ([facility]) meloxicam 15 MG Oral Tablet 03/05/2020 12:00:00 AM EDT eCW1 ([facility]) 24 HR Phentermine 3.75 MG / topiramate 2 3 MG Extended Release Oral Capsule [Qsymia] 03/05/2020 12:00:00 AM EDT eCW1 ([facility]) meloxicam 15 MG Oral Tablet 03/05/2020 12:00:00 AM EDT eCW1 ([facility]) meloxicam 15 MG Oral Tablet 03/05/2020 12:00:00 AM EDT eCW1 ([facility]) 24 HR Phentermine 3.75 MG / topiramate 2 3 MG Extended Release Oral Capsule [Qsymia] 03/05/2020 12:00:00 AM EDT eCW1 ([facility])
--- OUTSIDE RECORDS SUMMARY | 2021-03-28 00:46 | CCD ---
Author Author [facility] Address Unknown Phone Unavailable Care Team Providers Care Water Treatment Plant Mechanic Name Role Phone Hernandez, Ann SECURITY SALES CONSULTANT Unavailable Unavailable Hernandez, Ann SECURITY SALES CONSULTANT Unavailable Unavailable Hernandez, Ann SECURITY SALES CONSULTANT Unavailable Unavailable Hernandez, Ann SECURITY SALES CONSULTANT Unavailable Unavailable Hernandez, Ann SECURITY SALES CONSULTANT Unavailable Unavailable Hernandez, Ann SECURITY SALES CONSULTANT Unavailable Unavailable Hernandez, Ann SECURITY SALES CONSULTANT Unavailable Unavailable Hernandez, Ann SECURITY SALES CONSULTANT Unavailable Unavailable Hernandez, Ann SECURITY SALES CONSULTANT Unavailable Unavailable Hernandez, Ann SECURITY SALES CONSULTANT Unavailable Unavailable Hernandez, Ann SECURITY SALES CONSULTANT Unavailable Unavailable Hernandez, Ann SECURITY SALES CONSULTANT Unavailable Unavailable Hernandez, Ann SECURITY SALES CONSULTANT Unavailable Unavailable Mckay KAMINSKI MD Unavailable Unavailable [...] Unavailable Desmond Zafar MD Unavailable Unavailable Zafar, D Christopher MD [...] protected by Article 27-F of the [facility] Public Health law. If you continue you may have access to information: Regarding HIV / AIDS; Provided by facilities licensed or operated by the [facility] Office of Mental Health; or Provided by the [facility] Office for People With Developmental Disabilities. If such information is present, then the following [facility] mandated warning applies: This information has [...] law may result in a fine or halfway sentence or both. A general authorization for the release of medical or other information is NOT sufficient authorization for further disc losure. Family History Family Member Name Family Member Gender Family Member Status Date o f Status Description Data Source(s) Unknown Unknown Problem MEDENT ([facility], ) Unknown Unknown Problem MEDENT ([facility], ) Unknown Unknown Problem [facility]ENT ([facility], ) Encounters Encounter Providers Location Date Indications Data Source(s ) Outpatient Attender: ENZO [facility] 02/26/2021 09:20:00 AM EDT [facility] Out[facility] [address] [facility] [place], [facility] [address] 12/13/2020 12:00:00 AM EDT eCW1 ([facility]) Outpatient Attender: Ann [facility] 11/23/2020 06:15:00 PM EDT [facility] ([facility] [place] [address] [facility] [place] [address] 11/01/2020 12:00:00 AM EDT eCW1 ([facility]) Unknown [address] [facility] [place] [address] 11/01/2020 12:00:00 AM EDT eCW1 ([facility]) Unknown [address] [facility] [place] [address] 11/01/2020 12:00:00 AM EDT eCW1 ([facility]) Outpatient Attender: ENZO Scherer 10/27/2020 05:00:00 PM EDT MEDENT ([facility]) [place] [address] [facility] [place] [address] 09/03/2020 12:00:00 AM EDT eCW1 ([facility]) [place] [address] [facility] [place] [address] 06/01/2020 12:00:00 AM EST eCW1 ([facility]) Unknown [address] [facility] [place] [address] 05/10/2020 12:00:00 AM EST eCW1 ([facility]) Unknown [address] [facility] [place] [address] 05/10/2020 12:00:00 AM EST eCW1 ([facility]) Unknown [address] [facility] [place] [address] 04/21/2020 12:00:00 AM EST eCW1 ([facility]) Outpatient Attender: TOMMY Carias/Sunni/Silvio/ Eneida 04/06/2020 08:30:00 AM EST [facility] ([facility] [place] [address] [facility] [place] [address] 04/05/2020 12:00:00 AM EST eCW1 ([facility]) Outpatient Attender: Haley Giraldo MHCConsultant: Christopher Erazo rn, MD 03/17/2020 04:56:00 PM EDT - 03/17/2020 04:56:00 PM EDT [facility] Unknown [address] [facility] [place] [address] 03/10/2020 12:00:00 AM EDT eCW1 ([facility]) Unknown [address] [facility] [place] [address] 03/09/2020 12:00:00 AM EDT eCW1 ([facility]) Unknown [address] [facility] [place] [address] 03/08/2020 12:00:00 AM EDT eCW1 ([facility]) Outpatient [address] [facility] [place] [address] 03/05/2020 12:00:00 AM EDT eCW1 ([facility]) Outpatient Attender: Haley Giraldo MHCConsultant: Christopher Erazo rn, MD 02/04/2020 04:01:00 PM EDT - 02/04/2020 04:01:00 PM EDT [facility] Outpatient Attender: Haley Giraldo MHCConsultant: Christopher Erazo rn, MD 12/23/2019 10:01:00 AM EDT - 12/23/2019 10:01:00 AM EDT [facility] Medications Medication Brand Name Start Date Product Form Dose Route Admi nistrative Instructions Pharmacy Instructions Status Indications Reaction Description Data Source(s) No Active Medications 02/26/2021 12:00:00 AM EDT completed MEDENT ([facility]) levocetirizine dihydrochloride 5 MG Oral Tablet [Xyzal] Xyza l Allergy 24HR 02/26/2021 12:00:00 AM EDT ORAL active MEDENT ([facility]) 200 ACTUAT Albuterol 0.09 MG/ACTUAT Metered Dose Inhaler [Pr oAir] Proair HFA 02/26/2021 12:00:00 AM EDT ORAL active MEDENT ([facility]) Amoxicillin 875 MG / Clavulanate 125 MG Oral Tablet Am oxicillin/Clavulanate Potassium 02/26/2021 12:00:00 AM EDT ORAL active MEDENT ([facility]) Flonase Allergy Relief 50 MCG/ACT Flonase Allergy Relief 50 MCG/ACT 11/01/2020 12:00:00 AM EDT 2.0 {sprays_in_each_nostril} act beverly Flonase Allergy Relief 50 MCG/ACT eCW1 ([facility]) doxycycline hyclate 100 MG Oral Capsule Doxycycline Hy clate 100 MG Doxycycline Hyclate 100 MG 11/01/2020 12:00:00 AM EDT 1.0 {capsule} suspended Doxycycline Hyclate 100 MG eCW1 ([facility]) Flonase Allergy Relief 50 MCG/ACT Flonase Allergy Relief 50 MCG/ACT 11/01/2020 12:00:00 AM EDT 2.0 {sprays_in_each_nostril} act beverly Flonase Allergy Relief 50 MCG/ACT eCW1 ([facility]) doxycycline hyclate 100 MG Oral Capsule Doxycycline Hy clate 100 MG Doxycycline Hyclate 100 MG 11/01/2020 12:00:00 AM EDT 1.0 {capsule} active Doxycycline Hyclate 100 MG eCW1 ([facility]) doxycycline hyclate 100 MG Oral Capsule Doxycycline Hy clate 100 MG Doxycycline Hyclate 100 MG 11/01/2020 12:00:00 AM EDT 1.0 {capsule} active Doxycycline Hyclate 100 MG eCW1 ([facility]) doxycycline hyclate 100 MG Oral Capsule Doxycycline Hy clate 100 MG Doxycycline Hyclate 100 MG 11/01/2020 12:00:00 AM EDT 1.0 {capsule} active Doxycycline Hyclate 100 MG eCW1 ([facility]) Flonase Allergy Relief 50 MCG/ACT Flonase Allergy Relief 50 MCG/ACT 11/01/2020 12:00:00 AM EDT 2.0 {sprays_in_each_nostril} beth pended Flonase Allergy Relief 50 MCG/ACT eCW1 ([facility]) Flonase Allergy Relief 50 MCG/ACT Flonase Allergy Relief 50 MCG/ACT 11/01/2020 12:00:00 AM EDT 2.0 {sprays_in_each_nostril} act beverly Flonase Allergy Relief 50 MCG/ACT eCW1 ([facility]) 200 ACTUAT Albuterol 0.09 MG/ACTUAT Metered Dose Inhaler [Pr oAir] Proair HFA 10/27/2020 12:00:00 AM EDT ORAL completed MEDENT ([facility]) Fluticasone Propionate Fluticasone Propionate 10/27/2020 12:00:00 AM E DT completed MEDENT ([facility]) Prednisone 20 MG Oral Tablet Prednisone 10/27/2020 12:00:00 AM EDT ORAL completed MEDENT ([facility]) No Active Medications 10/27/2020 12:00:00 AM EDT completed MEDENT ([facility]) Phentermine Hydrochloride 37.5 MG Oral Tablet Phenterm ine HCl 37.5 MG Phentermine HCl 37.5 MG 03/10/2020 12:00:00 AM EDT 1.0 {tablet} active Phentermine HCl 37.5 MG eCW1 ([facility]) Phentermine Hydrochloride 15 MG Oral Capsule Phentermi ne HCl 15 MG Phentermine HCl 15 MG 03/10/2020 12:00:00 AM EDT 1.0 {capsule} a ctive Phentermine HCl 15 MG eCW1 ([facility]) Phentermine Hydrochloride 37.5 MG Oral Tablet Phenterm ine HCl 37.5 MG Phentermine HCl 37.5 MG 03/10/2020 12:00:00 AM EDT 1.0 {tablet} active Phentermine HCl 37.5 MG eCW1 ([facility]) Phentermine Hydrochloride 37.5 MG Oral Tablet Phenterm ine HCl 37.5 MG Phentermine HCl 37.5 MG 03/10/2020 12:00:00 AM EDT 1.0 {tablet} active Phentermine HCl 37.5 MG eCW1 ([facility]) Phentermine Hydrochloride 37.5 MG Oral Tablet Phenterm ine HCl 37.5 MG Phentermine HCl 37.5 MG 03/10/2020 12:00:00 AM EDT 1.0 {tablet} active Phentermine HCl 37.5 MG eCW1 ([facility]) Phentermine Hydrochloride 15 MG Oral Capsule Phentermi ne HCl 15 MG Phentermine HCl 15 MG 03/10/2020 12:00:00 AM EDT 1.0 {capsule} a ctive Phentermine HCl 15 MG eCW1 ([facility]) Phentermine Hydrochloride 15 MG Oral Capsule Phentermi ne HCl 15 MG Phentermine HCl 15 MG 03/10/2020 12:00:00 AM EDT 1.0 {capsule} a ctive Phentermine HCl 15 MG eCW1 ([facility]) Phentermine Hydrochloride 15 MG Oral Capsule Phentermi ne HCl 15 MG Phentermine HCl 15 MG 03/10/2020 12:00:00 AM EDT 1.0 {capsule} a ctive Phentermine HCl 15 MG eCW1 ([facility]) Phentermine Hydrochloride 15 MG Oral Capsule Phentermi ne HCl 15 MG Phentermine HCl 15 MG 03/10/2020 12:00:00 AM EDT 1.0 {capsule} a ctive Phentermine HCl 15 MG eCW1 ([facility]) Phentermine Hydrochloride 37.5 MG Oral Tablet Phenterm ine HCl 37.5 MG Phentermine HCl 37.5 MG 03/10/2020 12:00:00 AM EDT 1.0 {tablet} active Phentermine HCl 37.5 MG eCW1 ([facility]) Phentermine Hydrochloride 37.5 MG Oral Tablet Phenterm ine HCl 37.5 MG Phentermine HCl 37.5 MG 03/10/2020 12:00:00 AM EDT 1.0 {tablet} active Phentermine HCl 37.5 MG eCW1 ([facility]) Phentermine Hydrochloride 37.5 MG Oral Tablet Phenterm ine HCl 37.5 MG Phentermine HCl 37.5 MG 03/10/2020 12:00:00 AM EDT 1.0 {tablet} active Phentermine HCl 37.5 MG eCW1 ([facility]) Phentermine Hydrochloride 15 MG Oral Capsule Phentermi ne HCl 15 MG Phentermine HCl 15 MG 03/10/2020 12:00:00 AM EDT 1.0 {capsule} a ctive Phentermine HCl 15 MG eCW1 ([facility]) Phentermine Hydrochloride 15 MG Oral Capsule Phentermi ne HCl 15 MG Phentermine HCl 15 MG 03/10/2020 12:00:00 AM EDT 1.0 {capsule} a ctive Phentermine HCl 15 MG eCW1 ([facility]) 24 HR Phentermine 3.75 MG / topiramate 2 3 MG Extended Release Oral Capsule [Qsymia] Qsymia 3.75-23 MG Qsymia 3.75-23 MG 03/05/2020 12:00:00 AM EDT active Qsymia 3.75-23 MG eCW1 ([facility]) 24 HR Phentermine 3.75 MG / topiramate 2 3 MG Extended Release Oral Capsule [Qsymia] Qsymia 3.75-23 MG Qsymia 3.75-23 MG 03/05/2020 12:00:00 AM EDT active Qsymia 3.75-23 MG eCW1 ([facility]) 24 HR Phentermine 3.75 MG / topiramate 2 3 MG Extended Release Oral Capsule [Qsymia] Qsymia 3.75-23 MG Qsymia 3.75-23 MG 03/05/2020 12:00:00 AM EDT active Qsymia 3.75-23 MG eCW1 ([facility]) meloxicam 15 MG Oral Tablet Meloxicam 15 MG Meloxicam 15 MG 03/05/2020 12:00:00 AM EDT 1.0 {tablet} active Meloxicam 1 5 MG eCW1 ([facility]) 24 HR Phentermine 3.75 MG / topiramate 2 3 MG Extended Release Oral Capsule [Qsymia] Qsymia 3.75-23 MG Qsymia 3.75-23 MG 03/05/2020 12:00:00 AM EDT active Qsymia 3.75-23 MG eCW1 ([facility]) meloxicam 15 MG Oral Tablet Meloxicam 15 MG Meloxicam 15 MG 03/05/2020 12:00:00 AM EDT 1.0 {tablet} active Meloxicam 1 5 MG eCW1 ([facility]) 24 HR Phentermine 3.75 MG / topiramate 2 3 MG Extended Release Oral Capsule [Qsymia] Qsymia 3.75-23 MG Qsymia 3.75-23 MG 03/05/2020 12:00:00 AM EDT active Qsymia 3.75-23 MG eCW1 ([facility]) meloxicam 15 MG Oral Tablet Meloxicam 15 MG Meloxicam 15 MG 03/05/2020 12:00:00 AM EDT 1.0 {tablet} active Meloxicam 1 5 MG eCW1 ([facility]) meloxicam 15 MG Oral Tablet Meloxicam 15 MG Meloxicam 15 MG 03/05/2020 12:00:00 AM EDT 1.0 {tablet} active Meloxicam 1 5 MG eCW1 ([facility]) meloxicam 15 MG Oral Tablet Meloxicam 15 MG Meloxicam 15 MG 03/05/2020 12:00:00 AM EDT 1.0 {tablet} active Meloxicam 1 5 MG eCW1 ([facility]) meloxicam 15 MG Oral Tablet Meloxicam 15 MG Meloxicam 15 MG 03/05/2020 12:00:00 AM EDT 1.0 {tablet} active Meloxicam 1 5 MG eCW1 ([facility]) 24 HR Phentermine 3.75 MG / topiramate 2 3 MG Extended Release Oral Capsule [Qsymia] Qsymia 3.75-23 MG Qsymia 3.75-23 MG 03/05/2020 12:00:00 AM EDT active Qsymia 3.75-23 MG eCW1 ([facility]) meloxicam 15 MG Oral Tablet Meloxicam 15 MG Meloxicam 15 MG 03/05/2020 12:00:00 AM EDT 1.0 {tablet} active Meloxicam 1 5 MG eCW1 ([facility]) 24 HR Phentermine 3.75 MG / topiramate 2 3 MG Extended Release Oral Capsule [Qsymia] Qsymia 3.75-23 MG Qsymia 3.75-23 MG 03/05/2020 12:00:00 AM EDT active Qsymia 3.75-23 MG eCW1 ([facility]) 24 HR Phentermine 3.75 MG / topiramate 2 3 MG Extended Release Oral Capsule [Qsymia] Qsymia 3.75-23 MG Qsymia 3.75-23 MG 03/05/2020 12:00:00 AM EDT active Qsymia 3.75-23 MG eCW1 ([facility]) meloxicam 15 MG Oral Tablet Meloxicam 15 MG Meloxicam 15 MG 03/05/2020 12:00:00 AM EDT 1.0 {tablet} active Meloxicam 1 5 MG eCW1 ([facility]) Insurance Providers Payer name Policy type / Coverage type Policy ID Covered constitution party ID Covered constitution party's relationship to andrews Policy Andrews Plan Information MEDICAID [id number] SP [id number] Medicaid S [id number] S [id number] [facility] Care Community Plan [facility] P [id number] S [id number] Managed [facility] P [id number] S [id number] Medicaid S [id number] S [id number] Medicaid S [id number] S [id number] [facility] P [id number] S [id number] Managed [facility] P [id number] S [id number] Medicaid S [id number] S [id number] [facility] [place] [id number] 18 [id number] [facility] COMMUNITY [facility] [id number] SP [id number] Managed Care - [facility] Community Plan P [id number] S [id number] Managed Care [facility] Plan [facility] P [id number] S [id number] Medicaid S [id number] S [id number] [place] [id number] [facility] [place]ITY [place] [id number] 18 [id number] [facility] [id number] [facility] LIM[facility] [id number] [facility] Health Maintenance Organization (HMO) [id number] Self [id number] [facility] [place] [id number] 18 [id number] [facility] [place] [id number] SP [id number] [facility](MCAID) O [id number] S [id number] UNHC AMERICHOICE XIX -HMO [id number] 18 [id number] [facility] [place]/MCR Health Maintenance Organization (HMO) [id number] Self [facility] HEALTH [id number] SP [id number] Managed Care BCBS O [id number] S [id number] [employer] [place] [place] PLAN [id number] SP [id number] HMO BLUE [id number] SP [id number] UNHC COMMUNITY PLAN MCDHMO [id number] SP [id number] UNHC COMMUNITY PLAN MCDHMO [id number] SP [id number] [facility] COMMUNITY [facility] [place] [id number] 18 [id number] [facility](MCAID) O [id number] S [id number] [place]ICAID [place] [id number] ANSI-Medicaid [id number] ANSI-Medicaid [id number] ANSI-Medicaid [id number] ANSI-Medicaid [id number] ANSI-Medicaid [id number] ANSI-Medicaid [id number] ANSI-Medicaid [id number] ANSI-Medicaid [id number] ANSI-Medicaid [id number] ANSI-Medicaid [id number] ANSI-Medicaid [id number] Problems, Conditions, and Diagnoses Code Display Name Description Problem Type Effective Dates Data Source(s) F603 Borderline personality disorder Borderline personality disorder Diagnosis 02/04/2020 04:01:00 PM EDT [facility] 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 Other specif ied depressive episodes Diagnosis 02/04/2020 04:01:00 PM EDT [facility] Z68.41 [id number] Body mass index [BMI]40.0-44.9, adult Pro blem 11/01/2020 12:00:00 AM EDT eCW1 ([facility]) E66.01 [id number] Morbid (severe) obesity due to excess c alories Problem 11/01/2020 12:00:00 AM EDT eCW1 ([facility]) E66.9 Obesity Obesity, unspecified Problem 03/05/2020 12:0 0:00 AM EDT eCW1 ([facility]) Surgeries/Procedures Procedure Description Date Indications Data Source(s) OFFICE OUTPATIENT VISIT 15 MINUTES 02/26/2021 12:00:00 AM EDT MEDENT ([facility]) OFFICE OUTPATIENT VISIT 15 MINUTES 11/23/2020 12:00:00 AM EDT MEDENT ([facility]) OFFICE OUTPATIENT VISIT 15 MINUTES 10/27/2020 12:00:00 AM EDT MEDENT ([facility]) Excision Tumor Soft Tissue Upper Arm/Elbow Subcutaneous 3 CM Or > 06/11/2020 12:00:00 AM EST MEDENT ([facility] ) Results ID Date Data Source [id number] 03/18/2021 03:35:00 PM EDT [facility] Name Value Range Interpretation Code Description Data Tiffany rce(s) Supporting Document(s) SARS COVID ANTIGEN NEGATIVE [facility] This lab was ordered by STEPHANIE [place] reported by [facility]. ID Date Data Source [id number] 02/26/2021 12:00:00 AM EDT [facility] Name Value Range Interpretation Code Description Data Tiffany rce(s) Supporting Document(s) SARS-CoV2 Rapid Antigen Negative [facility] This lab was ordered by [facility] and reported by [facility]. ID Date Data Source [id number] 11/23/2020 12:00:00 AM EDT [facility] Name Value Range Interpretation Code Description Data Tiffany rce(s) Supporting Document(s) SARS-CoV2 Rapid Antigen Negative [facility] This lab was reported by [facility]. ID Date Data Source [id number] 06/11/2020 10:50:00 AM EST MEDENT ([facility], ) Name Value Range Interpretation Code Description Data Tiffany rce(s) Supporting Document(s) Surgical pathology study Laboratory test result MEDENT ([facility], ) FINAL DIAGNOSIS Lipoma, left upper arm, [...] no grossly apparent solid lesions or necrosis. 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 -SV 06/11/2020 - 151 Signed NALINI GIRALDO MD 06/14/2020 1044 ID Date Data Source [id number] 06/06/2020 10:15:00 AM EST [facility] Name Value Range Interpretation Code Description Data Tiffany rce(s) Supporting Document(s) SARS coronavirus 2 RNA Not Detected [facility] [place] This lab was ordered by [facility] and reported by [facility]. Procedure Social History Code Duration Value Status Description Data Source(s ) Smoking 12/13/2020 12:00:00 AM EDT Current Smoker completed Curre nt Smoker eCW1 ([facility]) Smoking 11/01/2020 12:00:00 AM EDT Current Smoker completed Curre nt Smoker eCW1 ([facility]) Smoking 11/01/2020 12:00:00 AM EDT Current Smoker completed Curre nt Smoker eCW1 ([facility]) Smoking 11/01/2020 12:00:00 AM EDT Current Smoker completed Curre nt Smoker eCW1 ([facility]) Smoking 09/02/2020 12:00:00 AM EDT Current Smoker completed Curre nt Smoker eCW1 ([facility]) Smoking 06/01/2020 12:00:00 AM EST Current Smoker completed Curre nt Smoker eCW1 ([facility]) Smoking 03/05/2020 12:00:00 AM EDT Current Smoker completed Curre nt Smoker eCW1 ([facility]) Smoking 03/05/2020 12:00:00 AM EDT Current Smoker completed Curre nt Smoker eCW1 ([facility]) Smoking 03/05/2020 12:00:00 AM EDT Current Smoker completed Curre nt Smoker eCW1 ([facility]) Smoking 03/05/2020 12:00:00 AM EDT Current Smoker completed Curre nt Smoker eCW1 ([facility]) Smoking 03/05/2020 12:00:00 AM EDT Current Smoker completed Curre nt Smoker eCW1 ([facility]) Smoking 03/05/2020 12:00:00 AM EDT Current Smoker completed Curre nt Smoker eCW1 ([facility]) Smoking 03/05/2020 12:00:00 AM EDT Current Smoker completed Curre nt Smoker eCW1 ([facility]) Smoking 03/05/2020 12:00:00 AM EDT Current Smoker completed Curre nt Smoker eCW1 ([facility]) Vital Signs ID Date Data Source UNK Name Value Range Interpretation Code Description Data Source(s) Systolic blood pressure 117 mm[Hg] 117 mm[Hg] M EDENT ([facility], [facility]) Diastolic blood pressure 80 mm[Hg] 80 mm[Hg] MEDENT ([facility], [facility]) Heart rate 65 /min 65 /min MEDENT ([facility]) Respiratory rate 18 /min 18 /min [facility]) Oxygen saturation in Arterial blood by Pulse oximetry 97 % 97 % [facility]) Body temperature 98.0 [degF] 98.0 [degF] [facility]) Body weight 231.00 [lb_av] 231.00 [lb_av] MEDEN T ([facility], [facility]) Body height 62 [in_i] 62 [in_i] MEDENT ([facility]) 5'2" Body mass index (BMI) [Ratio] 42.2 kg/m2 42.2 k g/m2 [facility] ([facility]) Systolic blood pressure 124 mm[Hg] 124 mm[Hg] M EDENT ([facility], ) Diastolic blood pressure 84 mm[Hg] 84 mm[Hg] [facility] Body height 62 [in_i] 62 [in_i] [facility] 5'2" Body weight 231.00 [lb_av] 231.00 [lb_av] MEDEN T ([facility], ) Body mass index (BMI) [Ratio] 42.2 kg/m2 42.2 k g/m2 [facility] ([facility]) Ryde body weight 110 [lb_av] 110 [lb_av] MEDEN T ([facility]) Body weight 104.782 kg 104.782 kg MEDENT ([facility]) Body surface area Derived from formula 2.03 m2 2.03 m2 MEDENT ([facility]) Body weight 233.2 [lb_av] 233.2 [lb_av] eCW1 ([facility]) Body height 62 [in_i] 62 [in_i] eCW1 ([facility]) Body mass index (BMI) [Ratio] 42.65 kg/m2 42.65 kg/m2 eCW1 ([facility]) Heart rate 87 /min 87 /min eCW1 ([facility]) Respiratory rate 18 /min 18 /min eCW1 ([facility]) Body temperature 97.4 [degF] 97.4 [degF] eCW1 ( [facility]) Systolic blood pressure 118 mm[Hg] 118 mm[Hg] e CW1 ([facility]) Diastolic blood pressure 78 mm[Hg] 78 mm[Hg] eCW1 ([facility]) Systolic blood pressure 124 mm[Hg] 124 mm[Hg] M EDENT ([facility]) Diastolic blood pressure 90 mm[Hg] 90 mm[Hg] MEDENT ([facility], [facility]) Heart rate 71 /min 71 /min MEDENT ([facility]) Respiratory rate 19 /min 19 /min MEDENT ( [facility], [facility]) Oxygen saturation in Arterial blood by Pulse oximetry 95 % 95 % [facility], [facility]) Body temperature 99.1 [degF] 99.1 [degF] MEDENT ([facility], [facility]) Body weight 225.00 [lb_av] 225.00 [lb_av] MEDEN T ([facility], [facility]) Body height 62 [in_i] 62 [in_i] MEDENT ([facility], [facility]) 5'2" Body mass index (BMI) [Ratio] 41.1 kg/m2 41.1 k g/m2 MEDENT ([facility], [facility]) Heart rate 83 /min 83 /min eCW1 ([facility]) Body weight 225.0 [lb_av] 225.0 [lb_av] eCW1 ([facility]) Body height 62 [in_i] 62 [in_i] eCW1 ([facility]) Body mass index (BMI) [Ratio] 41.15 kg/m2 41.15 kg/m2 eCW1 ([facility]) Respiratory rate 18 /min 18 /min eCW1 ([facility]) Body temperature 97.5 [degF] 97.5 [degF] eCW1 ( [facility]) Systolic blood pressure 128 mm[Hg] 128 mm[Hg] e CW1 ([facility]) Diastolic blood pressure 78 mm[Hg] 78 mm[Hg] eCW1 ([facility]) Systolic blood pressure 115 mm[Hg] 115 mm[Hg] M EDENT ([facility], [facility]) Diastolic blood pressure 81 mm[Hg] 81 mm[Hg] MEDENT ([facility], [facility]) Heart rate 83 /min 83 /min MEDENT ([facility], [facility]) Respiratory rate 16 /min 16 /min MEDENT ( [facility], [facility]) Oxygen saturation in Arterial blood by Pulse oximetry 98 % 98 % MEDENT ([facility], [facility]) Body temperature 98.0 [degF] 98.0 [degF] MEDENT ([facility], [facility]) Body weight 220.00 [lb_av] 220.00 [lb_av] MEDEN T ([facility], [facility]) Body height 62 [in_i] 62 [in_i] MEDENT ([facility], [facility]) 5'2" Body mass index (BMI) [Ratio] 40.2 kg/m2 40.2 k g/m2 MEDENT ([facility], [facility]) Body height 62 [in_i] 62 [in_i] [facility] Body weight 208.00 [lb_av] 208.00 [lb_av] MEDEN T ([facility]) Body mass index (BMI) [Ratio] 38.0 kg/m2 38.0 k g/m2 [facility] ([facility]) [place] body weight 110 [lb_av] 110 [lb_av] MEDEN T ([facility]) Body weight 94.349 kg 94.349 kg MEDENT ([facility]) Body surface area Derived from formula 1.94 m2 1.94 m[facility] Systolic blood pressure 140 mm[Hg] 140 mm[Hg] M EDENT ([facility]) Diastolic blood pressure 80 mm[Hg] 80 mm[Hg] [facility] Body height 62 [in_i] 62 [in_i] MEDENT ([facility]) 5'2" Body weight 208.00 [lb_av] 208.00 [lb_av] MEDEN T ([facility]) Body mass index (BMI) [Ratio] 38.0 kg/m2 38.0 k g/m2 [facility] ([facility]) [place] body weight 110 [lb_av] 110 [lb_av] MEDEN T ([facility]) Body weight 94.349 kg 94.349 kg [facility] ([facility]) Body surface area Derived from formula 1.94 m2 1.94 m2 [facility] ([facility]) Body weight 199.4 [lb_av] 199.4 [lb_av] eCW1 ([facility]) Body height 62 [in_i] 62 [in_i] eCW1 ([facility]) Body mass index (BMI) [Ratio] 36.47 kg/m2 36.47 kg/m2 eCW1 ([facility]) Heart rate 76 /min 76 /min eCW1 ([facility]) Respiratory rate 17 /min 17 /min eCW1 ([facility]) Body temperature 97.4 [degF] 97.4 [degF] eCW1 ( [facility]) Systolic blood pressure 132 mm[Hg] 132 mm[Hg] e CW1 ([facility]) Diastolic blood pressure 78 mm[Hg] 78 mm[Hg] eCW1 ([facility]) Body height 62 [in_i] 62 [in_i] [facility] ([facility]) 5'2" Body weight 212.12 [lb_av] 212.12 [lb_av] [facility] Body mass index (BMI) [Ratio] 38.8 kg/m2 38.8 k g/m2 [facility] ([facility]) [place] body weight 110 [lb_av] 110 [lb_av] [facility] Body weight 96.220 kg 96.220 kg [facility] ([facility]) Body surface area Derived from formula 1.96 m2 1.96 m2 [facility] ([facility]) Systolic blood pressure 133 mm[Hg] 133 mm[Hg] M EDENT ([facility]) Diastolic blood pressure 81 mm[Hg] 81 mm[Hg] [facility] ([facility]) Heart rate 85 /min 85 /min [facility] ([facility]) Body weight 225.4 [lb_av] 225.4 [lb_av] eCW1 ([facility]) Body height 62 [in_i] 62 [in_i] eCW1 ([facility]) Body mass index (BMI) [Ratio] 41.22 kg/m2 41.22 kg/m2 eCW1 ([facility]) Heart rate 86 /min 86 /min eCW1 ([facility]) Respiratory rate 16 /min 16 /min eCW1 ([facility]) Body temperature 97.2 [degF] 97.2 [degF] eCW1 ( [facility]) Systolic blood pressure 118 mm[Hg] 118 mm[Hg] e CW1 ([facility]) Diastolic blood pressure 74 mm[Hg] 74 mm[Hg] eCW1 ([facility]) Patient Treatment Plan of Care Planned Activity Planned Date Details Description Data Source (s) Flonase Allergy Relief 50 MCG/ACT 11/01/2020 12:00:00 AM EDT eCW1 ([facility]) doxycycline hyclate 100 MG Oral Capsule 11/01/2020 12:00:00 AM EDT eCW1 ([facility]) Flonase Allergy Relief 50 MCG/ACT 11/01/2020 12:00:00 AM EDT eCW1 ([facility]) doxycycline hyclate 100 MG Oral Capsule 11/01/2020 12:00:00 AM EDT eCW1 ([facility]) Flonase Allergy Relief 50 MCG/ACT 11/01/2020 12:00:00 AM EDT eCW1 ([facility]) doxycycline hyclate 100 MG Oral Capsule 11/01/2020 12:00:00 AM EDT eCW1 ([facility]) Phentermine Hydrochloride 37.5 MG Oral Tablet 03/10/2020 12:00:00 A M EDT eCW1 ([facility]) Phentermine Hydrochloride 15 MG Oral Capsule 03/10/2020 12:00:00 AM EDT eCW1 ([facility]) Phentermine Hydrochloride 37.5 MG Oral Tablet 03/10/2020 12:00:00 A M EDT eCW1 ([facility]) Phentermine Hydrochloride 15 MG Oral Capsule 03/10/2020 12:00:00 AM EDT eCW1 ([facility]) Phentermine Hydrochloride 15 MG Oral Capsule 03/10/2020 12:00:00 AM EDT eCW1 ([facility]) Phentermine Hydrochloride 37.5 MG Oral Tablet 03/10/2020 12:00:00 A M EDT eCW1 ([facility]) Phentermine Hydrochloride 15 MG Oral Capsule 03/10/2020 12:00:00 AM EDT eCW1 ([facility]) Phentermine Hydrochloride 37.5 MG Oral Tablet 03/10/2020 12:00:00 A M EDT eCW1 ([facility]) Phentermine Hydrochloride 15 MG Oral Capsule 03/10/2020 12:00:00 AM EDT eCW1 ([facility]) Phentermine Hydrochloride 37.5 MG Oral Tablet 03/10/2020 12:00:00 A M EDT eCW1 ([facility]) Phentermine Hydrochloride 15 MG Oral Capsule 03/10/2020 12:00:00 AM EDT eCW1 ([facility]) Phentermine Hydrochloride 37.5 MG Oral Tablet 03/10/2020 12:00:00 A M EDT eCW1 ([facility]) Phentermine Hydrochloride 15 MG Oral Capsule 03/10/2020 12:00:00 AM EDT eCW1 ([facility]) Phentermine Hydrochloride 37.5 MG Oral Tablet 03/10/2020 12:00:00 A M EDT eCW1 ([facility]) 24 HR Phentermine 3.75 MG / topiramate 2 3 MG Extended Release Oral Capsule [Qsymia] 03/05/2020 12:00:00 AM EDT eCW1 ([facility]) meloxicam 15 MG Oral Tablet 03/05/2020 12:00:00 AM EDT eCW1 ([facility]) 24 HR Phentermine 3.75 MG / topiramate 2 3 MG Extended Release Oral Capsule [Qsymia] 03/05/2020 12:00:00 AM EDT eCW1 ([facility]) meloxicam 15 MG Oral Tablet 03/05/2020 12:00:00 AM EDT eCW1 ([facility]) 24 HR Phentermine 3.75 MG / topiramate 2 3 MG Extended Release Oral Capsule [Qsymia] 03/05/2020 12:00:00 AM EDT eCW1 ([facility]) meloxicam 15 MG Oral Tablet 03/05/2020 12:00:00 AM EDT eCW1 ([facility]) 24 HR Phentermine 3.75 MG / topiramate 2 3 MG Extended Release Oral Capsule [Qsymia] 03/05/2020 12:00:00 AM EDT eCW1 ([facility]) meloxicam 15 MG Oral Tablet 03/05/2020 12:00:00 AM EDT eCW1 ([facility]) 24 HR Phentermine 3.75 MG / topiramate 2 3 MG Extended Release Oral Capsule [Qsymia] 03/05/2020 12:00:00 AM EDT eCW1 ([facility]) meloxicam 15 MG Oral Tablet 03/05/2020 12:00:00 AM EDT eCW1 ([facility]) 24 HR Phentermine 3.75 MG / topiramate 2 3 MG Extended Release Oral Capsule [Qsymia] 03/05/2020 12:00:00 AM EDT eCW1 ([facility]) meloxicam 15 MG Oral Tablet 03/05/2020 12:00:00 AM EDT eCW1 ([facility]) 24 HR Phentermine 3.75 MG / topiramate 2 3 MG Extended Release Oral Capsule [Qsymia] 03/05/2020 12:00:00 AM EDT eCW1 ([facility]) meloxicam 15 MG Oral Tablet 03/05/2020 12:00:00 AM EDT eCW1 ([facility]) meloxicam 15 MG Oral Tablet 03/05/2020 12:00:00 AM EDT eCW1 ([facility]) 24 HR Phentermine 3.75 MG / topiramate 2 3 MG Extended Release Oral Capsule [Qsymia] 03/05/2020 12:00:00 AM EDT eCW1 ([facility])
[2021-03-28] MEDS ORDERED: predniSONE 20 MG TAB PO ONE (03:15)
[2021-03-28] MEDS ORDERED: BENZONATATE 100MG CAPSULE PO ONE (03:15)
[2021-03-28] MEDS ORDERED: TESS100C PO (03:15)
[2021-03-28] MEDS ORDERED: LEVO500T3 PO (03:15)
[2021-03-28] MEDS ORDERED: LevoFLOXacin 500 MG TABLET PO ONE (03:15)
[2021-03-28] MEDS ORDERED: PRED20TA PO (03:15)
== END 2021-03-28 03:23 | disposition home or self-care (01) ==
LOC: M ED 21:58
DX: R05.9 Cough, unspecified (principal); R07.89 Other chest pain; J45.909 Unspecified asthma, uncomplicated; Z88.5 Allergy status to narcotic agent; Z88.8 Allergy status to other drugs, medicaments and biological substances; Z91.040 Latex allergy status; Z87.891 Personal history of nicotine dependence
CPT/HCPCS: 99283; J7512

== ENCOUNTER → 2021-03-30 | Outpatient (CLI) | payer OTHER ==
[~2021-03-30] MED LIST changes: +LEVO500T3 PO; +PROV108A INH; +TESS100C PO
== END ==
LOC: M LABSMTC 12:45
PROVIDERS: ATTEND Anesthesiology
DX: Z01.818 Encounter for other preprocedural examination (principal); Z11.52 Encounter for screening for COVID-19

== ENCOUNTER 2021-04-04 12:10 | Day surgery (SDC) | payer OTHER ==
[~2021-04-04] VITALS: Ht 157.5 cm; Wt 105.7 kg
[~2021-04-04 12:10] MED LIST changes: -LATU40TA PO; +LATU40TA2 PO; -LEVO500T3 PO; +LEVO500T4 PO; +NS 1,000 ML IV ONE
[2021-04-04] MEDS ORDERED: fentaNYL 100 MCG/2 ML INJECTION As Ordered ONE (14:08)
[2021-04-04] MEDS ORDERED: LIDOCAINE 2% 100MG/5ML SDV (FOR ANES.) As Ordered ONE (14:08)
[2021-04-04] MEDS ORDERED: propofoL 200 MG/20 ML VIAL As Ordered ONE (14:08)
[2021-04-04 14:55] VITALS: BP 142/82
== END 2021-04-04 15:02 | disposition home or self-care (01) ==
LOC: M OPP 12:10
PROVIDERS: ATTEND Internal Medicine Gastroenterology
DX: K29.00 Acute gastritis without bleeding (principal); K29.50 Unspecified chronic gastritis without bleeding; K20.0 Eosinophilic esophagitis; R12 Heartburn; Z88.6 Allergy status to analgesic agent
CPT/HCPCS: 43239; 88305; 88342; J3010

== ENCOUNTER → 2021-05-16 | Outpatient (CLI) | payer OTHER ==
[~2021-05-16] MED LIST changes: +ALBU83IN NEB; +AMOX500C PO; +BACITAB PO; +CLAR500T97 PO; +CLEV1MIS25 XX; +LIDO2SOL17 PO; -NS 1,000 ML IV ONE; +PANT20TA6 PO; +PRED10TA2 PO; +PROT1TAB2 PO
[2021-05-16 13:25] LABS: BASO # 0.1 10^3/uL (0.0-0.2); BASO % 0.8 % (0.0-1.0); EOS # 0.8 10^3/uL (0.0-0.5); EOS % 9.1 % (0.0-3.0); HEMATOCRIT 44.7 % (36.0-47.0); HEMOGLOBIN 14.5 g/dl (12.0-15.5); LYMPH # 3.6 10^3/uL (1.5-5.0); LYMPH % 42.4 % (24.0-44.0); MEAN CORPUSCULAR HEMOGLOBIN 27.8 pg (27.0-33.0); MEAN CORPUSCULAR HGB CONC 32.4 g/dl (32.0-36.5); MEAN CORPUSCULAR VOLUME 85.6 fl (80.0-96.0); MONO # 0.5 10^3/uL (0.0-0.8); MONO % 6.1 % (2.0-8.0); NEUTROPHILS # 3.5 10^3/uL (1.5-8.5); NEUTROPHILS % 41.4 % (36.0-66.0); PLATELET COUNT, AUTOMATED 287 10^3/uL (150-450); RED BLOOD COUNT 5.22 10^6/uL (4.00-5.40); WHITE BLOOD COUNT 8.6 10^3/uL (4.0-10.0)
[2021-05-16 13:59] LABS: ALBUMIN 3.9 GM/DL (3.2-5.2); ALT/SGPT 47 U/L (12-78); BILIRUBIN,TOTAL 0.5 MG/DL (0.2-1.0); BLOOD UREA NITROGEN 9 MG/DL (7-18); CALCIUM LEVEL 8.9 MG/DL (8.5-10.1); CARBON DIOXIDE LEVEL 26 MEQ/L (21-32); CHLORIDE LEVEL 110 MEQ/L (98-107); CREATININE FOR GFR 0.89 MG/DL (0.55-1.30); GLOMERULAR FILTRATION RATE > 60.0 (>60); GLUCOSE, FASTING 102 MG/DL (70-100); POTASSIUM SERUM 4.5 MEQ/L (3.5-5.1); SODIUM LEVEL 141 MEQ/L (136-145); THYROID STIMULATING HORMONE 0.555 uIU/ML (0.358-3.740); TOTAL PROTEIN 6.9 GM/DL (6.4-8.2)
[2021-05-16 14:00] LABS: HEMOGLOBIN A1c 5.4 %
== END ==
LOC: M PLALAB 09:53
PROVIDERS: ATTEND Student in an Organized Health Care Education/Training Program
DX: Z01.818 Encounter for other preprocedural examination (principal)

== ENCOUNTER → 2021-05-16 | Outpatient (REF) | payer OTHER ==
[~2021-05-16] MED LIST changes: -AMOX500C PO; -BACITAB PO; -CLAR500T97 PO; +LATU40TA PO; -LATU40TA2 PO; +LEVO500T3 PO; -LEVO500T4 PO; -PANT20TA6 PO; -PRED10TA2 PO
== END ==
LOC: M SFHCPLAZ 09:44
PROVIDERS: ATTEND Family Medicine
DX: Z01.818 Encounter for other preprocedural examination (principal); Z53.8 Procedure and treatment not carried out for other reasons

== ENCOUNTER 2021-05-22 20:19 | Emergency (ER) | payer OTHER ==
[~2021-05-22] VITALS: Ht 157.5 cm; Wt 102.9 kg
[~2021-05-22 20:19] MED LIST changes: -ALBU83IN NEB; -CLEV1MIS25 XX; -LIDO2SOL17 PO; -PROT1TAB2 PO
[2021-05-22 23:22] LABS: RSV AMPLIFICATION NEGATIVE (NEGATIVE)
[2021-05-22] MEDS ORDERED: methylPREDNISolone 125MG 2ML VIAL IV ONE (23:40)
[2021-05-22] MEDS ORDERED: ALBUTEROL SULFATE 2.5 MG/0.5 ML INH NEB SOLN NEB ONE (23:40)
[2021-05-22] MEDS ORDERED: PANTOPRAZOLE 40MG VIAL (C9113 PER 1) IV ONE (23:55)
[2021-05-22] MEDS ORDERED: GI COCKTAIL 50ML BTL(HYOSCYAMINE/MAALOX/LIDOCAINE VISCOUS)(1:3:1) PO ONE (23:55)
[2021-05-23] MEDS ORDERED: IPRATROPIUM 0.5MG/ALBUTEROL 2.5MG INH SOL UD 3ML (DUONEB) NEB ONE (00:20)
[2021-05-23 00:22] LABS: ABG BASE EXCESS -2.6 (-2.0-2.0); ABG HCO3 22.7 MEQ/L (22.0-26.0); ABG O2 SATURATION 88.9 % (95.0-99.0); ABG PARTIAL PRESSURE CO2 41.3 mmHg (35.0-45.0); ABG PARTIAL PRESSURE O2 55.2 mmHg (75.0-100.0); ABG STANDARD HCO3 22.1 MEQ/L (22.0-26.0); ABG pH (ARTERIAL) 7.358 UNITS (7.350-7.450)
[2021-05-23 00:29] LABS: BASO # 0.1 10^3/uL (0.0-0.2); BASO % 0.8 % (0.0-1.0); EOS # 1.1 10^3/uL (0.0-0.5); EOS % 10.2 % (0.0-3.0); HEMATOCRIT 46.1 % (36.0-47.0); HEMOGLOBIN 15.4 g/dl (12.0-15.5); LYMPH # 4.2 10^3/uL (1.5-5.0); LYMPH % 37.5 % (24.0-44.0); MEAN CORPUSCULAR HEMOGLOBIN 28.2 pg (27.0-33.0); MEAN CORPUSCULAR HGB CONC 33.4 g/dl (32.0-36.5); MEAN CORPUSCULAR VOLUME 84.3 fl (80.0-96.0); MONO # 0.6 10^3/uL (0.0-0.8); MONO % 5.6 % (2.0-8.0); NEUTROPHILS # 5.1 10^3/uL (1.5-8.5); NEUTROPHILS % 45.7 % (36.0-66.0); PLATELET COUNT, AUTOMATED 301 10^3/uL (150-450); RED BLOOD COUNT 5.47 10^6/uL (4.00-5.40); WHITE BLOOD COUNT 11.2 10^3/uL (4.0-10.0)
[2021-05-23 00:57] LABS: BLOOD UREA NITROGEN 11 MG/DL (7-18); C REACTIVE PROTEIN QUANTITATIV 0.66 MG/DL (0.00-0.30); CALCIUM LEVEL 8.9 MG/DL (8.5-10.1); CARBON DIOXIDE LEVEL 26 MEQ/L (21-32); CHLORIDE LEVEL 110 MEQ/L (98-107); CREATININE FOR GFR 1.03 MG/DL (0.55-1.30); GLOMERULAR FILTRATION RATE > 60.0 (>60); GLUCOSE, FASTING 107 MG/DL (70-100); POTASSIUM SERUM 4.4 MEQ/L (3.5-5.1); SODIUM LEVEL 140 MEQ/L (136-145)
[2021-05-23 01:01] LABS: ERYTHROCYTE SEDIMENTATION RATE 6 mm/hr (0-20)
[2021-05-23] MEDS ORDERED: ISOVUE-370 76% 100ML VIAL As Ordered ONE (01:15)
--- NOTE | 2021-05-23 01:58 | REPVR ---
PROCEDURE INFORMATION: Exam: CT Chest With Contrast; Diagnostic Exam date and time: 05/23/2021 1:25 AM Age: 41 years old Clinical indication: Chest wall pain; Additional info: Wheezing, SOB, chest tightness TECHNIQUE: Imaging protocol: Diagnostic computed tomography of the chest with contrast. 3D rendering (Not supervised by radiologist): MIP and/or 3D reconstructed images were created by the technologist. Radiation optimization: All CT scans at this facility use at least one of these dose optimization techniques: automated exposure control; mA and/or kV adjustment per patient size (includes targeted exams where dose is matched to clinical indication); or iterative reconstruction. Contrast material: ISO 370; Contrast volume: 75 ml; Contrast route: INTRAVENOUS (IV); COMPARISON: 1. CR CHEST 2 VIEW 2021-03-21 12:30 2. CR PORTABLE CHEST X-RAY 2019-02-05 19:22 FINDINGS: Lungs: Mild peribronchial thickening and some subtle vague areas of ground-glass opacities. Correlate for reactive airways disease, bronchiolitis, or other infection. Pleural spaces: Unremarkable. No pneumothorax. No pleural effusion. Heart: Unremarkable. No cardiomegaly. No pericardial effusion. Pulmonary arteries: No filling defects in the pulmonary arteries to suggest pulmonary emboli. Aorta: Unremarkable. No aortic aneurysm. Lymph nodes: Unremarkable. No enlarged lymph nodes. Bones/joints: Unremarkable. No acute fracture. Soft tissues: Unremarkable. IMPRESSION: Mild peribronchial thickening and some subtle vague areas of ground-glass opacities. Correlate for reactive airways disease, bronchiolitis, or other infection. Electronically signed by: Hill Mancini On 05/23/2021 01:58:11 AM
[2021-05-23] MEDS ORDERED: ALBU83IN NEB ×2 (02:21→15:53)
[2021-05-23] MEDS ORDERED: PRED20TA PO (02:21)
[2021-05-23] MEDS ORDERED: CLEV1MIS25 XX ×2 (02:21→15:53)
[2021-05-23] MEDS ORDERED: PROT1TAB2 PO (02:23)
[2021-05-23] MEDS ORDERED: LIDO2SOL17 PO (02:24)
[2021-05-23 02:41] VITALS: BP 132/78
== END 2021-05-23 03:07 | disposition home or self-care (01) ==
LOC: M ED 20:19
DX: R91.8 Other nonspecific abnormal finding of lung field (principal); R06.02 Shortness of breath; J45.909 Unspecified asthma, uncomplicated; K58.9 Irritable bowel syndrome, unspecified; Z79.899 Other long term (current) drug therapy; Z88.5 Allergy status to narcotic agent; Z88.8 Allergy status to other drugs, medicaments and biological substances; F17.210 Nicotine dependence, cigarettes, uncomplicated
CPT/HCPCS: 36600; 71260; 80048; 82803; 85025; 85652; 86140; 87631; 94640; 96374; 96375; 99284; C9113; J2930; Q9967

== ENCOUNTER 2021-06-23 12:49 | Inpatient (IN) | payer OTHER ==
[~2021-06-23] VITALS: Ht 157.5 cm; Wt 96.5 kg
[~2021-06-23 12:49] MED LIST changes: +ALBU83IN NEB; +CLEV1MIS25 XX; -LATU40TA PO; +LATU40TA2 PO; -LEVO500T3 PO; +LEVO500T4 PO; +LIDO2SOL17 PO; +PROT1TAB2 PO
[2021-06-23] MEDS ORDERED: CLAR500T97 PO (13:48)
[2021-06-23] MEDS ORDERED: PANT20TA6 PO (13:48)
[2021-06-23] MEDS ORDERED: AMOX500C PO (13:48)
[2021-06-23] MEDS ORDERED: ACETAMINOPHEN TAB 650MG DOSE (2X325MG) PO ONE (13:55)
[2021-06-23 14:08] LABS: BASO % 0.3 % (0.0-1.0); EOS % 0.3 % (0.0-3.0); HEMATOCRIT 41.5 % (36.0-47.0); HEMOGLOBIN 13.7 g/dl (12.0-15.5); LYMPH % 29.3 % (24.0-44.0); MEAN CORPUSCULAR VOLUME 84.7 fl (80.0-96.0); MONO # 0.2 10^3/uL (0.0-0.8); MONO % 5.9 % (2.0-8.0); NEUTROPHILS # 2.2 10^3/uL (1.5-8.5); NEUTROPHILS % 63.6 % (36.0-66.0); PLATELET COUNT, AUTOMATED 215 10^3/uL (150-450); WHITE BLOOD COUNT 3.4 10^3/uL (4.0-10.0)
[2021-06-23 14:49] LABS: ALBUMIN 3.2 GM/DL (3.2-5.2); ALT/SGPT 159 U/L (12-78); BILIRUBIN,DIRECT 0.3 MG/DL (0.0-0.2); BILIRUBIN,TOTAL 0.5 MG/DL (0.2-1.0); BLOOD UREA NITROGEN 7 MG/DL (7-18); CALCIUM LEVEL 8.3 MG/DL (8.5-10.1); CARBON DIOXIDE LEVEL 26 MEQ/L (21-32); CHLORIDE LEVEL 107 MEQ/L (98-107); CREATININE FOR GFR 0.84 MG/DL (0.55-1.30); FREE T4 1.21 NG/DL (0.76-1.46); GLOMERULAR FILTRATION RATE > 60.0 (>60); GLUCOSE, FASTING 101 MG/DL (70-100); LIPASE 166 U/L (73-393); NT-PRO BNP 12 PG/ML (<125); POTASSIUM SERUM 3.9 MEQ/L (3.5-5.1); SODIUM LEVEL 137 MEQ/L (136-145); TOTAL PROTEIN 6.3 GM/DL (6.4-8.2)
[2021-06-23 14:55] LABS: HCG, SERUM QUALITATIVE NEGATIVE (NEGATIVE)
[2021-06-23] MEDS ORDERED: ISOVUE-370 76% 100ML VIAL As Ordered ONE (14:58)
[2021-06-23] MEDS ORDERED: dexameTHASONE 20MG/5ML VIAL (J1100 PER 1MG) IV ONE (15:35)
[2021-06-23] MEDS ORDERED: HOME MED LIST COMPLETE! XX SCH (15:55)
[2021-06-23] MEDS ORDERED: COMBIVENT RESPIMAT 100-20MCG INHALER 4GM INH PRN (17:15)
[2021-06-23] MEDS ORDERED: IBUPROFEN 400MG TAB PO PRN (17:15)
[2021-06-23] MEDS ORDERED: ACETAMINOPHEN TAB 650MG DOSE (2X325MG) PO PRN (17:15)
[2021-06-23 18:48] LABS: PROTHROMBIN TIME 13.6 SECONDS (12.7-14.5)
[2021-06-23 18:49] LABS: PARTIAL THROMBOPLASTIN TIME 34.5 SECONDS (25.9-37.0)
[2021-06-23 18:52] LABS: D-DIMER QUANT 725.18 ng/ml (<500)
[2021-06-23 18:54] LABS: ALBUMIN 3.3 GM/DL (3.2-5.2); BILIRUBIN,DIRECT 0.3 MG/DL (0.0-0.2); BILIRUBIN,TOTAL 0.5 MG/DL (0.2-1.0); C REACTIVE PROTEIN QUANTITATIV 2.48 MG/DL (0.00-0.30); TOTAL PROTEIN 6.5 GM/DL (6.4-8.2)
[2021-06-23] MEDS ORDERED: REMDESIVIR 200 MG in NS 250 ML IV ONE (20:00)
[2021-06-23] MEDS ORDERED: SODIUM CHLORIDE 0.9% INJ 10 ML SYR IV ONE (22:00)
[2021-06-23 22:50] VITALS: BP 125/82
[2021-06-23 23:00] VITALS: O2SAT 92
[2021-06-23] MEDS: COMBIVENT RESPIMAT 100-20MCG INHALER 4GM INH SCH (23:47)
[2021-06-24] VITALS (8 sets, daily range): BP systolic 110–124; BP diastolic 60–76; O2SAT 90–94
[2021-06-24] MEDS: dexameTHASONE 4 MG/ML 1ML VIAL (J1100 PER 1MG) IV SCH ×2 (06:03→17:46)
[2021-06-24 07:52] LABS: HEMATOCRIT 41.1 % (36.0-47.0); HEMOGLOBIN 13.4 g/dl (12.0-15.5); MEAN CORPUSCULAR HEMOGLOBIN 27.8 pg (27.0-33.0); MEAN CORPUSCULAR HGB CONC 32.6 g/dl (32.0-36.5); MEAN CORPUSCULAR VOLUME 85.3 fl (80.0-96.0); PLATELET COUNT, AUTOMATED 229 10^3/uL (150-450); RED BLOOD COUNT 4.82 10^6/uL (4.00-5.40); WHITE BLOOD COUNT 2.5 10^3/uL (4.0-10.0)
[2021-06-24 08:12] LABS: BLOOD UREA NITROGEN 10 MG/DL (7-18); CALCIUM LEVEL 8.7 MG/DL (8.5-10.1); CARBON DIOXIDE LEVEL 25 MEQ/L (21-32); CHLORIDE LEVEL 107 MEQ/L (98-107); CREATININE FOR GFR 0.78 MG/DL (0.55-1.30); GLOMERULAR FILTRATION RATE > 60.0 (>60); GLUCOSE, FASTING 199 MG/DL (70-100); POTASSIUM SERUM 4.2 MEQ/L (3.5-5.1); SODIUM LEVEL 140 MEQ/L (136-145)
[2021-06-24 08:20] LABS: ATYPICAL LYMPH 8 % (0-5); LYMPHOCYTES 23 % (16-44); MONOCYTES 6 % (0-5); NEUTROPHILS 53 % (28-66)
[2021-06-24 08:21] LABS: PLATELET ESTIMATE NORMAL (NORMAL)
[2021-06-24] MEDS: COMBIVENT RESPIMAT 100-20MCG INHALER 4GM INH SCH ×4 (08:30→21:27)
[2021-06-24] MEDS: ENOXAPARIN 40MG/0.4ML SYRINGE (J1650 PER 10MG) SC SCH (08:31)
[2021-06-24] MEDS: BARICITINIB 2MG TABLET (OLUMIANT) FOR EUA PO SCH (08:32)
[2021-06-24] MEDS ORDERED: PROMETHAZINE INJ 25 MG/ML VIAL (J2550) IV ONE (14:00)
[2021-06-24] MEDS ORDERED: PROMETHAZINE INJ 25 MG/ML VIAL (J2550) IV PRN (18:00)
[2021-06-24] MEDS ORDERED: REMDESIVIR 100 MG in NS 250 ML IV SCH (20:00)
[2021-06-24] MEDS ORDERED: SODIUM CHLORIDE 0.9% INJ 10 ML SYR IV SCH (21:00)
[2021-06-25] VITALS: BP 98/55; O2SAT 92
[2021-06-25 04:00] VITALS: BP 112/69; O2SAT 95
[2021-06-25] MEDS ORDERED: IPRATROPIUM 0.5MG/ALBUTEROL 2.5MG INH SOL UD 3ML (DUONEB) NEB ONE (04:40)
[2021-06-25] MEDS: dexameTHASONE 4 MG/ML 1ML VIAL (J1100 PER 1MG) IV SCH (06:30)
[2021-06-25] MEDS: COMBIVENT RESPIMAT 100-20MCG INHALER 4GM INH SCH (07:28)
[2021-06-25] MEDS ORDERED: PRED10TA2 PO (07:45)
[2021-06-25] MEDS ORDERED: PROV108A INH (07:45)
[2021-06-25] MEDS ORDERED: BACITAB PO (07:45)
[2021-06-25 08:00] VITALS: O2SAT 95
[2021-06-25 08:35] LABS: BASO % 0.2 % (0.0-1.0); HEMATOCRIT 42.8 % (36.0-47.0); HEMOGLOBIN 13.9 g/dl (12.0-15.5); LYMPH # 1.7 10^3/uL (1.5-5.0); LYMPH % 27.6 % (24.0-44.0); MEAN CORPUSCULAR HGB CONC 32.5 g/dl (32.0-36.5); MEAN CORPUSCULAR VOLUME 86.1 fl (80.0-96.0); MONO # 0.5 10^3/uL (0.0-0.8); MONO % 8.7 % (2.0-8.0); NEUTROPHILS # 3.8 10^3/uL (1.5-8.5); NEUTROPHILS % 62.7 % (36.0-66.0); PLATELET COUNT, AUTOMATED 314 10^3/uL (150-450); RED BLOOD COUNT 4.97 10^6/uL (4.00-5.40); WHITE BLOOD COUNT 6.1 10^3/uL (4.0-10.0)
[2021-06-25 08:50] LABS: INR 0.92; PROTHROMBIN TIME 12.8 SECONDS (12.7-14.5)
[2021-06-25 08:51] LABS: PARTIAL THROMBOPLASTIN TIME 28.1 SECONDS (25.9-37.0)
[2021-06-25 09:02] LABS: ALBUMIN 3.3 GM/DL (3.2-5.2); ALT/SGPT 119 U/L (12-78); BILIRUBIN,DIRECT 0.2 MG/DL (0.0-0.2); BILIRUBIN,TOTAL 0.4 MG/DL (0.2-1.0); BLOOD UREA NITROGEN 14 MG/DL (7-18); CALCIUM LEVEL 8.6 MG/DL (8.5-10.1); CARBON DIOXIDE LEVEL 26 MEQ/L (21-32); CHLORIDE LEVEL 110 MEQ/L (98-107); CHOLESTEROL LEVEL 104 MG/DL (<200); CHOLESTEROL RISK RATIO 3.466 (<5); CREATININE FOR GFR 0.88 MG/DL (0.55-1.30); FERRITIN 596 NG/ML (8-252); GLOMERULAR FILTRATION RATE > 60.0 (>60); GLUCOSE, FASTING 184 MG/DL (70-100); HDL CHOLESTEROL 30 MG/DL (>40); LDH LACTATE DEHYDROGENASE 352 U/L (84-246); LDL CHOLESTEROL 46 MG/DL (<100); NON-HDL-C 74 MG/DL; NT-PRO BNP 252 PG/ML (<125); POTASSIUM SERUM 4.2 MEQ/L (3.5-5.1); SODIUM LEVEL 144 MEQ/L (136-145); TOTAL PROTEIN 6.7 GM/DL (6.4-8.2); TRIGLYCERIDES LEVEL 142 MG/DL (<150)
[2021-06-25] MEDS: BARICITINIB 2MG TABLET (OLUMIANT) FOR EUA PO SCH (09:07)
[2021-06-25] MEDS: ENOXAPARIN 40MG/0.4ML SYRINGE (J1650 PER 10MG) SC SCH (09:08)
[2021-06-27 10:03] LABS: HEPATITIS B SURFACE ANTIGEN NEGATIVE (NEGATIVE)
[2021-06-27 14:08] LABS: HEPATITIS B CORE ANTIBODY IGM NEGATIVE (NEGATIVE); HEPATITIS C VIRUS ABY INDEX < 0.0 INDEX (<0.8)
[2021-06-29 13:07] LABS: BODY FLUID CULTURE Not indicated. (.); LEGIONELLA ANTIGEN URINE Negative (Negative); ORGANISM ID Not indicated. (.); SPECIMEN SOURCE Urine (.); URINE STREP PNEUMONIAE ANTIGEN Negative (Negative)
== END 2021-06-25 12:54 | disposition home or self-care (01) | DRG 137 ==
LOC: M ED 12:49 → M ED INP 15:43 → ENRESERV 20:44 → M 4MAIN 22:50
PROVIDERS: ADMIT General Practice; ATTEND General Practice
PROC: XW033E5 Introduction of Remdesivir Anti-infective into Peripheral Vein, Percutaneous Approach, New Technology Group 5 (ICD-10-PCS; principal; 2021-06-23)
PROC: 3E0333Z Introduction of Anti-inflammatory into Peripheral Vein, Percutaneous Approach (ICD-10-PCS; 2021-06-23)
DX: U07.1 COVID-19 (principal); J12.82 Pneumonia due to coronavirus disease 2019; K76.0 Fatty (change of) liver, not elsewhere classified; E66.01 Morbid (severe) obesity due to excess calories; Z68.41 Body mass index [BMI] 40.0-44.9, adult; J45.909 Unspecified asthma, uncomplicated; G47.33 Obstructive sleep apnea (adult) (pediatric); K20.0 Eosinophilic esophagitis; Z79.899 Other long term (current) drug therapy

== ENCOUNTER → 2021-07-11 | Outpatient (CLI) | payer OTHER ==
[~2021-07-11] MED LIST changes: +AMOX500C PO; +BACITAB PO; +CLAR500T97 PO; +PANT20TA6 PO; +PRED10TA2 PO
== END ==
LOC: M CARPUL 12:51
PROVIDERS: ATTEND Student in an Organized Health Care Education/Training Program
DX: R05.9 Cough, unspecified (principal)

== ENCOUNTER → 2021-07-25 | Outpatient (CLI) | payer OTHER | LOC: M RAD 10:28 | PROVIDERS: ATTEND Otolaryngology | DX: R43.8 Other disturbances of smell and taste (principal) ==

== ENCOUNTER → 2021-08-04 | Outpatient (CLI) | payer OTHER ==
[~2021-08-04] MED LIST changes: +ALBU1.25; +ALBU8.5H; +FLUT22IN; +OMEP40CA5; +PANT40TA29
== END ==
LOC: M LABSMTC 11:33
PROVIDERS: ATTEND Anesthesiology
DX: Z01.818 Encounter for other preprocedural examination (principal); Z11.52 Encounter for screening for COVID-19

== ENCOUNTER 2021-08-09 12:39 | Day surgery (SDC) | payer OTHER ==
[~2021-08-09] VITALS: Ht 157.5 cm; Wt 103.0 kg
[~2021-08-09 12:39] MED LIST changes: +LIDOCAINE 2% 100MG/5ML SDV (FOR ANES.) As Ordered ONE; +NS 1,000 ML IV ONE; +propofoL 200 MG/20 ML VIAL As Ordered ONE
[2021-08-09] MEDS ORDERED: fentaNYL 100 MCG/2 ML INJECTION As Ordered ONE (12:57)
[2021-08-09] MEDS ORDERED: propofoL 200 MG/20 ML VIAL As Ordered ONE (12:59)
[2021-08-09] MEDS ORDERED: CLAR10CA3 PO (13:00)
[2021-08-09 14:08] VITALS: BP 142/80
== END 2021-08-09 14:10 | disposition home or self-care (01) ==
LOC: M OPP 12:39
PROVIDERS: ATTEND Internal Medicine Gastroenterology
DX: K22.89 Other specified disease of esophagus (principal); K31.89 Other diseases of stomach and duodenum; B96.81 Helicobacter pylori [H. pylori] as the cause of diseases classified elsewhere; K20.0 Eosinophilic esophagitis; Z88.6 Allergy status to analgesic agent
CPT/HCPCS: 43239; 88305; 88342; J3010

== ENCOUNTER → 2021-12-18 | Outpatient (CLI) | payer OTHER ==
[~2021-12-18] MED LIST changes: +ALBU2.5V10 NEB; -ALBU8.5H; +ALBU8.5H INH; -ALBU83IN NEB; +CALC250T PO; +CLAR10CA3 PO; +CYAN500T14 PO; +FLUT22IN PO; -LIDOCAINE 2% 100MG/5ML SDV (FOR ANES.) As Ordered ONE; -NS 1,000 ML IV ONE; -PANT40TA29; +PANT40TA29 PO; -propofoL 200 MG/20 ML VIAL As Ordered ONE
== END ==
LOC: M LABSMTC 11:05
PROVIDERS: ATTEND Anesthesiology
DX: Z01.812 Encounter for preprocedural laboratory examination (principal); Z20.822 Contact with and (suspected) exposure to COVID-19

== ENCOUNTER → 2021-12-20 | Outpatient (REF) | payer OTHER ==
[~2021-12-20] MED LIST changes: +LEVO1TAB39 PO; -LEVO500T4 PO
== END ==
LOC: M SFHCPLAZ 15:44
PROVIDERS: ATTEND Family Medicine
DX: Z98.84 Bariatric surgery status (principal)

== ENCOUNTER 2021-12-22 07:35 | Day surgery (SDC) | payer OTHER ==
[~2021-12-22] VITALS: Ht 157.5 cm; Wt 81.1 kg
[2021-12-22] MEDS ORDERED: LR 1,000 ML IV SCH ×2 (07:55→10:45)
[2021-12-22] MEDS ORDERED: CIPRODEX OTIC SUSP 7.5ML As Ordered ONE ×2 (10:05→10:28)
[2021-12-22] MEDS ORDERED: PHENYLEPHRINE 0.5% NASAL SPRAY 15 ML As Ordered ONE (10:05)
[2021-12-22] MEDS ORDERED: dexameTHASONE 4 MG/ML 1ML VIAL (J1100 PER 1MG) As Ordered ONE (10:28)
[2021-12-22] MEDS ORDERED: LIDOCAINE 2% 100MG/5ML SDV (FOR ANES.) As Ordered ONE (10:28)
[2021-12-22] MEDS ORDERED: fentaNYL 100 MCG/2 ML INJECTION As Ordered ONE (10:28)
[2021-12-22] MEDS ORDERED: MIDAZOLAM INJ 2MG/2ML VIAL (J2250 PER 1MG) As Ordered ONE (10:28)
[2021-12-22] MEDS ORDERED: propofoL 200 MG/20 ML VIAL As Ordered ONE (10:28)
[2021-12-22] MEDS ORDERED: ONDANSETRON 4MG 2ML VIAL As Ordered ONE (10:28)
[2021-12-22] MEDS ORDERED: fentaNYL 100 MCG/2 ML INJECTION IV PRN (10:45)
[2021-12-22] MEDS ORDERED: ONDANSETRON 4MG 2ML VIAL IV PRN (10:45)
[2021-12-22] MEDS ORDERED: oxyCODONE 5MG TAB PO PRN (10:45)
[2021-12-22 12:00] VITALS: BP 114/75
== END 2021-12-22 12:28 | disposition home or self-care (01) ==
LOC: M SDC 07:35
PROVIDERS: ATTEND Otolaryngology
DX: H69.93 Unspecified Eustachian tube disorder, bilateral (principal); K20.0 Eosinophilic esophagitis; K76.0 Fatty (change of) liver, not elsewhere classified; Z98.84 Bariatric surgery status; Z88.5 Allergy status to narcotic agent; Z88.6 Allergy status to analgesic agent
CPT/HCPCS: 69436; J1100; J2250; J2405; J3010

== ENCOUNTER → 2022-03-28 | Outpatient (CLI) | payer OTHER ==
[~2022-03-28] MED LIST changes: +ALBU6.7H6 INH; -PROV108A INH
== END ==
LOC: M LABSMTC 09:24
PROVIDERS: ATTEND Anesthesiology
DX: Z01.818 Encounter for other preprocedural examination (principal); Z11.52 Encounter for screening for COVID-19

== ENCOUNTER 2022-03-31 13:19 | Day surgery (SDC) | payer OTHER ==
[~2022-03-31] VITALS: Ht 157.5 cm; Wt 72.1 kg
[~2022-03-31 13:19] MED LIST changes: +NS 1,000 ML IV ONE
[2022-03-31] MEDS ORDERED: LIDOCAINE 2% 100MG/5ML SDV (FOR ANES.) As Ordered ONE (16:05)
[2022-03-31] MEDS ORDERED: propofoL 200 MG/20 ML VIAL As Ordered ONE (16:05)
[2022-03-31 16:20] VITALS: BP 135/75
== END 2022-03-31 16:31 | disposition home or self-care (01) ==
LOC: M OPP 13:19
PROVIDERS: ATTEND Internal Medicine Gastroenterology
DX: K20.0 Eosinophilic esophagitis (principal); K22.89 Other specified disease of esophagus; K44.9 Diaphragmatic hernia without obstruction or gangrene; Z98.0 Intestinal bypass and anastomosis status; K58.1 Irritable bowel syndrome with constipation; K76.0 Fatty (change of) liver, not elsewhere classified; K21.9 Gastro-esophageal reflux disease without esophagitis; F41.9 Anxiety disorder, unspecified; F43.10 Post-traumatic stress disorder, unspecified; F60.3 Borderline personality disorder; F32.A Depression, unspecified; J45.909 Unspecified asthma, uncomplicated; Z87.891 Personal history of nicotine dependence; Z88.5 Allergy status to narcotic agent; Z88.6 Allergy status to analgesic agent; Z79.899 Other long term (current) drug therapy; Z83.3 Family history of diabetes mellitus; Z82.49 Family history of ischemic heart disease and other diseases of the circulatory system; Z80.0 Family history of malignant neoplasm of digestive organs; Z80.3 Family history of malignant neoplasm of breast

== ENCOUNTER → 2022-10-20 | Outpatient (REF) | payer OTHER ==
[~2022-10-20] MED LIST changes: +LIDO15SO PO; -LIDO2SOL17 PO; -NS 1,000 ML IV ONE
[2022-10-20 16:52] LABS: C REACTIVE PROTEIN QUANTITATIV < 0.40 MG/DL (<1.0)
[2022-10-20 16:54] LABS: ALBUMIN 4.2 G/DL (3.2-5.2); ALKALINE PHOSPHATASE 75 U/L (46-116); ALT/SGPT 17 U/L (7.0-40); AST/SGOT < 8 U/L (<34); BILIRUBIN,TOTAL 0.6 MG/DL (0.3-1.2); BLOOD UREA NITROGEN 8 MG/DL (9-23); CALCIUM LEVEL 9.3 MG/DL (8.5-10.1); CARBON DIOXIDE LEVEL 28 MMOL/L (20-31); CHLORIDE LEVEL 108 MMOL/L (98-107); CHOLESTEROL LEVEL 148 MG/DL (<200); CHOLESTEROL RISK RATIO 2.89 (<5); CREATININE FOR GFR 0.75 MG/DL (0.55-1.30); GLOMERULAR FILTRATION RATE > 60.0 (>58); GLUCOSE, FASTING 91 MG/DL (60-100); HDL CHOLESTEROL 51.2 MG/DL (>40); IRON (FE) 67 UG/DL (50-170); LDL CHOLESTEROL 80.2 MG/DL (<100); NON-HDL-C 96.8 MG/DL; PERCENT SATURATION 20.5 % (13.2-45.0); POTASSIUM SERUM 4.4 MMOL/L (3.5-5.1); RHEUMATOID FACTOR QUANT < 3.5 IU/ML (<14); SODIUM LEVEL 142 MMOL/L (136-145); TOTAL IRON BINDING CAPACITY 327 UG/DL (250-425); TOTAL PROTEIN 6.4 G/DL (5.7-8.2); TRIGLYCERIDES LEVEL 83 MG/DL (<150)
[2022-10-20 16:55] LABS: HEMATOCRIT 39.8 % (36.0-47.0); HEMOGLOBIN 13.3 g/dl (12.0-15.5); MEAN CORPUSCULAR HEMOGLOBIN 28.2 pg (27.0-33.0); MEAN CORPUSCULAR HGB CONC 33.4 g/dl (32.0-36.5); MEAN CORPUSCULAR VOLUME 84.5 fl (80.0-96.0); PLATELET COUNT, AUTOMATED 238 10^3/uL (150-450); RED BLOOD COUNT 4.71 10^6/uL (4.00-5.40); WHITE BLOOD COUNT 5.2 10^3/uL (4.0-10.0)
[2022-10-20 16:56] LABS: FERRITIN 34.8 NG/ML (7.3-270.7); THYROID STIMULATING HORMONE 1.102 uIU/ML (0.55-4.78); TOTAL 25(OH) VITAMIN D 21.3 NG/ML (20.0-100.0)
[2022-10-20 16:57] LABS: VITAMIN B12 LEVEL 192 PG/ML (211-911)
[2022-10-20 17:10] LABS: ERYTHROCYTE SEDIMENTATION RATE 2 mm/hr (0-20)
== END ==
LOC: M LAB REF 16:14
PROVIDERS: ATTEND Physician Assistant
DX: K20.0 Eosinophilic esophagitis (principal); R23.9 Unspecified skin changes; Z98.84 Bariatric surgery status; K91.2 Postsurgical malabsorption, not elsewhere classified; Z83.3 Family history of diabetes mellitus; Z13.220 Encounter for screening for lipoid disorders; R10.13 Epigastric pain

== ENCOUNTER → 2022-11-07 | Outpatient (REF) | payer OTHER | LOC: M LAB REF 17:36 | PROVIDERS: ATTEND Physician Assistant | DX: Z11.59 Encounter for screening for other viral diseases (principal) ==

== ENCOUNTER → 2022-11-24 | Outpatient (CLI) | payer OTHER | LOC: M WHC 13:10 | PROVIDERS: ATTEND Physician Assistant | DX: Z12.31 Encounter for screening mammogram for malignant neoplasm of breast (principal) ==

== ENCOUNTER → 2023-01-12 | Outpatient (CLI) | payer OTHER | LOC: M WUC 09:53 | PROVIDERS: ATTEND Physician Assistant | DX: M25.512 Pain in left shoulder (principal) ==

== ENCOUNTER → 2024-11-25 | Outpatient (REF) | payer OTHER ==
[~2024-11-25] MED LIST changes: -LIDO15SO PO; +LIDO15SO8 PO
[2024-12-01 16:12] LABS: LYME TOTAL ANTIBODY CIA <= 0.90 Index (<=0.90)
== END ==
LOC: M LAB REF 17:00
PROVIDERS: ATTEND Physician Assistant Medical
DX: R21 Rash and other nonspecific skin eruption (principal); R53.83 Other fatigue; M79.10 Myalgia, unspecified site

== ENCOUNTER 2024-11-26 07:33 | Emergency (ER) | payer OTHER ==
[~2024-11-26] VITALS: Ht 157.5 cm; Wt 62.5 kg
[2024-11-26] MEDS: ACETAMINOPHEN 325 MG TAB PO ONE (08:38)
[2024-11-26] MEDS: ONDANSETRON 4MG ORAL DISINTEGRATING TAB PO ONE (08:38)
[2024-11-26 09:10] LABS: BASO # 0.0 10^3/uL (0.0-0.2); BASO % 0.4 % (0.0-1.0); EOS # 0.0 10^3/uL (0.0-0.5); EOS % 0.4 % (0.0-3.0); LYMPH # 0.9 10^3/uL (1.5-5.0); LYMPH % 17.7 % (24.0-44.0); MONO # 0.4 10^3/uL (0.0-0.8); MONO % 7.5 % (2.0-8.0); NEUTROPHILS # 3.5 10^3/uL (1.5-8.5); NEUTROPHILS % 73.6 % (36.0-66.0); PLATELET COUNT, AUTOMATED 169 10^3/uL (150-450)
[2024-11-26 09:31] LABS: ALT/SGPT 34 U/L (7.0-40); AST/SGOT 30 U/L (<34); CALCIUM LEVEL 9.1 MG/DL (8.5-10.1); CARBON DIOXIDE LEVEL 25 MMOL/L (20-31); CHLORIDE LEVEL 108 MMOL/L (98-107); CPK CREATINE PHOSPHOKINASE 39 U/L (34-145); CREATININE FOR GFR 0.73 MG/DL (0.55-1.30); GLOMERULAR FILTRATION RATE > 90.0 (>58); POTASSIUM SERUM 4.3 MMOL/L (3.5-5.1); SODIUM LEVEL 145 MMOL/L (136-145)
[2024-11-26 10:34] VITALS: BP 96/52; TEMP 100.1; O2SAT 97
== END 2024-11-26 10:35 | disposition home or self-care (01) ==
LOC: M ED 07:33
DX: R50.9 Fever, unspecified (principal); R51.9 Headache, unspecified; T36.95XA Adverse effect of unspecified systemic antibiotic, initial encounter; A69.20 Lyme disease, unspecified; Z88.5 Allergy status to narcotic agent; Z88.6 Allergy status to analgesic agent; Z91.09 Other allergy status, other than to drugs and biological substances; Z79.51 Long term (current) use of inhaled steroids; Z79.899 Other long term (current) drug therapy; Z79.810 Long term (current) use of selective estrogen receptor modulators (SERMs)

== ENCOUNTER → 2025-03-25 | Outpatient (REF) | payer OTHER ==
[2025-03-25 21:27] LABS: APPEARANCE, URINE MANUAL CLOUDY (CLEAR); BILIRUBIN, URINE MANUAL NEGATIVE (NEGATIVE); COLOR, URINE MANUAL YELLOW (YELLOW); GLUCOSE, URINE (UA) MANUAL NEGATIVE (NEGATIVE); KETONE, URINE MANUAL NEGATIVE (NEGATIVE); PH,URINE MAN 6.0 UNITS (5.0 - 7.0); PROTEIN, URINE MANUAL 2+ mg/dL (NEGATIVE); SPECIFIC GRAVITY,URINE MANUAL 1.020 (1.002-1.035); UROBILINOGEN, URINE MANUAL NORMAL (NORMAL)
[2025-03-25 21:28] LABS: BLOOD URINE MANUAL POSITIVE (NEGATIVE); LEUKOCYTE ESTERASE, URINE MAN POSITIVE (NEGATIVE); NITRITE, URINE MANUAL POSITIVE (NEGATIVE)
[2025-03-25 21:30] LABS: BACTERIA, URINE MOD AMOUNT; HYALINE CAST, URINE NONE SEEN /lpf (0-1); RBC, URINE 40-50 /hpf (0-3); SQUAMOUS EPITHELIAL CELL URINE SMALL AMOUNT /hpf (SMALL AMT); WBC, URINE 40-50 /hpf (0-3)
== END ==
LOC: M LAB REF 21:21
PROVIDERS: ATTEND Physician Assistant
DX: N39.0 Urinary tract infection, site not specified (principal)